=== PATIENT | female | born 1970 | race Caucasian/White ===

== ENCOUNTER 2018-11-13 10:45 | Observation (INO) | payer OTHER, SELFPAY ==
[2018-11-13] VITALS (17 sets, daily range): BP systolic 93–125; BP diastolic 40–68; PULSE 71–92; RESP 15–26; TEMP 36.9–39; O2SAT 21–97; BMI 17.7
--- NOTE | 2018-11-13 10:57 | DI.RAD.S_ITS ---
PROCEDURE: XR CHEST 1V INDICATIONS: suspected sepsis TECHNIQUE: One view of the chest was acquired. COMPARISON: None. FINDINGS: Surgical changes and devices: Cervical spine fixation hardware. Lungs and pleura: Lungs are clear. No pleural effusions or pneumothorax. Mediastinum: Mediastinal contours appear normal. Heart size is normal. Bones and chest wall: No suspicious bony lesions. Overlying soft tissues appear unremarkable. IMPRESSION: No acute cardiopulmonary disease process. Dictated by: Leidy Conti MD, PhD on 11/13/2018 at 11:43 Approved by: Leidy Conti MD, PhD on 11/13/2018 at 11:44
[2018-11-13] MEDS: SODIUM CHLORIDE 0.9% 1,000 ML 1000 ML IV (11:20)
[2018-11-13] MEDS: KETOROLAC 60 MG/2 ML VIAL 30 MG IV (11:30)
[2018-11-13] MEDS: ONDANSETRON 4 MG/2 ML INJ IV (11:30)
[2018-11-13 11:52] LABS: INR 1.1 (0.9-1.3); Prothrombin Time 12.4 SECONDS (10.1-12.7)
[2018-11-13 11:55] LABS: Mean Corpuscular HGB Conc 27.6 % (30-36); Mean Corpuscular Hemoglobin 15.3 PG (26-34); Mean Corpuscular Volume 55.3 fL (80-100); PTT Partial Thromboplastin Tim 35 SECONDS (26.4-36.2); Platelet Count 314 X10^3/uL (150-400); Red Blood Cell Count 2.79 X10^6/uL (4.0-5.2); Red Cell Distribution Width 23.7 % (11.6-14.8); White Blood Cell Count 11.6 X10^3/uL (4.5-11.0)
[2018-11-13 11:58] LABS: Hemoglobin 4.3 g/dL (12.0-16.0)
[2018-11-13 11:59] LABS: Add Manual Diff / Slide Review YES; Hematocrit 15.5 % (36-46)
[2018-11-13 12:04] LABS: Lactate (Lactic Acid) 0.9 mmol/L (0.7-2.1)
[2018-11-13 12:05] LABS: Alanine Aminotransferase 32 IU/L (9-52); Albumin 4.2 g/dL (3.5-5.0); Albumin Globulin Ratio 1.4 (1.0-2.8); Alkaline Phosphatase 57 U/L (38-126); Aspartate Aminotransferase 38 IU/L (14-36); BUN Creatinine Ratio 18.3 (6-22); Bilirubin Total 0.4 mg/dL (0.2-1.3); Blood Urea Nitrogen 11 mg/dL (7-17); Calcium 8.4 mg/dL (8.4-10.2); Carbon Dioxide 27 mmol/L (22-32); Chloride 94 mmol/L (98-107); Estimated Glomerular Filt Rate > 60.0 mL/min (>60); Globulin 2.9 g/dL (1.7-4.1); Glucose 112 mg/dL (70-100); HEMOLYSIS < 15 (0-50); Lipase 129 U/L (23-300); Potassium 3.6 mmol/L (3.4-5.1); Sodium 132 mmol/L (137-145); Total Protein 7.1 g/dL (6.3-8.2)
[2018-11-13 12:09] LABS: RBC Urine None Seen (0-5/HPF)
--- NOTE | 2018-11-13 12:27 | ED.FEVER ---
HPI - Fever <KJ Guerrero - Last Filed: 11/13/18 22:07> General Chief Complaint: Fever Stated Complaint: flu like symptoms,chest pressure Time Seen by Provider: 11/13/18 12:12 Source: patient Mode of arrival: ambulatory Limitations: no limitations History of Present Illness HPI Narrative: 48-year-old female with history of iron deficiency anemia is everyday smoker here for complaint of having fever malaise nasal congestion and cough for the past 4-5 days. She is tolerating p.o. fluids. She has had some nausea. Positive fever. No shortness of breath. She is able speak full sentences. She is ambulatory into the emergency room. She denies being around other people that have been sick. No other concerns or complaints at this timeframe. Related Data Home Medications Medication Instructions Recorded Confirmed Vicks Vaporub 1 applic TOPICAL PRN PRN 11/13/18 11/13/18 Previous Rx's Medication Instructions Recorded acetaminophen 650 mg PO Q6HR PRN #30 tab 11/16/18 benzonatate 100 mg PO TID PRN #30 cap 11/16/18 cyclobenzaprine 5 mg PO BEDTIME PRN #10 tab 11/16/18 ferrous sulfate 325 mg PO DAILY #30 tab 11/16/18 guaifenesin [Mucinex] 1,200 mg PO Q12H #30 tab 11/16/18 omeprazole 20 mg PO DAILY #30 cap 11/16/18 oseltamivir [Tamiflu] 75 mg PO BID #6 cap 11/16/18 pseudoephedrine HCl 30 mg PO Q6HR PRN #30 tab 11/16/18 Allergies Allergy/AdvReac Type Severity Reaction Status Date / Time sumatriptan Allergy Severe Anaphylaxis Verified 11/13/18 10:50 codeine Allergy Intermediate Hives Verified 11/13/18 10:50 dihydroergotamine Allergy Unknown Verified 11/13/18 10:50 Review of Systems <KJ Guerrero - Last Filed: 11/13/18 22:07> Constitutional Reports chills, Reports fever(s), Denies lethargy, Reports malaise and Denies weakness Eyes Denies change in vision, Denies eye discharge, Denies irritation and Denies loss of vision ENT Ears, Nose, Mouth, and Throat: Denies change in voice, Reports nasal congestion, Denies neck pain and Denies sore throat Cardiovascular Denies chest pain, Denies irregular heart rhythm, Denies lightheadedness, Denies palpitations, Denies dyspnea, Denies dyspnea on exertion and Denies orthopnea Respiratory Reports cough, Denies dyspnea, Denies dyspnea on exertion and Denies wheezing Gastrointestinal Gastrointestinal: Denies abdominal pain, Denies change in bowel habits, Denies diarrhea, Denies nausea and Denies vomiting Genitourinary Denies hematuria, Denies flank pain, Denies urinary incontinence and Denies urinary urgency Musculoskeletal Denies neck pain Neurologic Denies confusion, Denies loss of vision and Denies weakness Psychiatric Denies anxiety, Denies confusion, Denies depression, Denies homicidal ideation and Denies suicidal ideation Endocrine Denies palpitations Hematologic/Lymphatic Denies easy bruising Allergic/Immunologic Denies wheezing PFSH <KJ Guerrero - Last Filed: 11/13/18 22:07> Medical History Smoker (Acute) Surgical History H/O cervical spine surgery (Acute) Hx of adenoidectomy (Acute) Social History household members: spouse Smoking Status: Current every day smoker alcohol intake: current Social History household members: spouse Smoking Status: Current every day smoker alcohol intake: current Exam <KJ Guerrero - Last Filed: 11/13/18 22:07> Initial Vital Signs Initial Vital Signs: Vital Signs Temperature 102.2 F H 11/13/18 10:46 Pulse Rate 92 H 11/13/18 10:46 Respiratory Rate 24 11/13/18 10:46 Blood Pressure 93/54 L 11/13/18 10:46 Pulse Oximetry 93 11/13/18 10:46 Const General: cooperative and well developed Nutritional Appearance: well nourished Orientation: alert, awake, oriented x3 and not confused HENMT Mouth: oral mucosae normal and mucous membranes abnormal Throat: posterior oropharynx normal Eyes Conjunctivae: conjunctivae normal Sclera: sclerae normal Pupils: PERRL EOM: EOM intact bilaterally Cardio Rate: regular rate Rhythm: regular rhythm Heart Sounds: no click, no gallops, no murmurs and no rubs Pulses: normal peripheral pulses GI Inspection: non-distended Palpation: soft, no hepatosplenomegaly, No guarding, No pulsatile mass and No tender Auscultation: normal bowel sounds Rectal Exam: visual inspection normal, normal sphincter tone, heme negative stool, No laceration and No lesions Skin General: no rashes or lesions noted, No jaundice and No petechiae Neuro General: alert, oriented x3, gait normal and no focal motor deficits Speech: speech normal <Elba Levi DO - Last Filed: 11/17/18 02:44> Initial Vital Signs Initial Vital Signs: Vital Signs Temperature 102.2 F H 11/13/18 10:46 Pulse Rate 92 H 11/13/18 10:46 Respiratory Rate 24 11/13/18 10:46 Blood Pressure 93/54 L 11/13/18 10:46 Pulse Oximetry 93 11/13/18 10:46 Course <KJ Guerrero - Last Filed: 11/13/18 22:07> Orders Ordered: Discontinued Medications Acetaminophen (Tylenol) 650 mg PO Q6HR PRN PRN Reason: As Needed for Fever/Mild Pain Last Admin: 11/15/18 15:58 Dose: 650 mg Admin: 11/15/18 01:22 Dose: 650 mg Albuterol (Ventolin) 2.5 mg INH [id number] PRN PRN Reason: Shortness Of Breath Last Admin: 11/15/18 05:40 Dose: 2.5 mg Admin: 11/15/18 01:27 Dose: 2.5 mg Albuterol/Ipratropium (Duoneb) 3 ml INH [id number] Last Admin: 11/16/18 07:26 Dose: 3 ml Admin: 11/15/18 19:10 Dose: 3 ml Admin: 11/15/18 14:42 Dose: 3 ml Benzocaine (Cepacol Lozenge) 1 each PO Q4HR PRN PRN Reason: Cough Benzonatate (Tessalon Perles) 100 mg PO TID PRN PRN Reason: Cough Stop: 11/16/18 23:39 Last Admin: 11/16/18 14:51 Dose: 100 mg Admin: 11/16/18 08:19 Dose: 100 mg Admin: 11/15/18 20:56 Dose: 100 mg Admin: 11/15/18 16:00 Dose: 100 mg Admin: 11/15/18 01:01 Dose: 100 mg Admin: 11/14/18 10:56 Dose: 100 mg Cyclobenzaprine HCl (Flexeril) 5 mg PO NOW ONE Stop: 11/14/18 00:46 Last Admin: 11/14/18 01:22 Dose: 5 mg Cyclobenzaprine HCl (Flexeril) 5 mg PO TID PRN PRN Reason: Muscle Spasm Last Admin: 11/16/18 14:51 Dose: 5 mg Admin: 11/16/18 08:19 Dose: 5 mg Admin: 11/15/18 16:00 Dose: 5 mg Admin: 11/15/18 09:31 Dose: 5 mg Admin: 11/15/18 01:19 Dose: 5 mg Diclofenac Sodium (Voltaren 1% Gel) 1 applic TOP QID PRN PRN Reason: Pain, Moderate (4-6) Last Admin: 11/16/18 08:20 Dose: 1 applic Admin: 11/15/18 20:56 Dose: 1 applic Admin: 11/15/18 15:58 Dose: 1 applic Admin: 11/15/18 09:31 Dose: 1 applic Ferrous Sulfate (Ferrous Sulfate) 325 mg PO DAILY [facility] Last Admin: 11/16/18 08:15 Dose: 325 mg Guaifenesin (Robitussin Liquid) 100 mg PO Q4H PRN PRN Reason: Cough Last Admin: 11/14/18 13:26 Dose: 100 mg Guaifenesin (Mucinex) 600 mg PO Q12H [facility] Last Admin: 11/14/18 13:35 Dose: Not Given Admin: 11/14/18 00:35 Dose: 600 mg Guaifenesin (Mucinex) 1,200 mg PO Q12H [facility] Last Admin: 11/16/18 06:38 Dose: 1,200 mg Admin: 11/15/18 20:58 Dose: 1,200 mg Admin: 11/15/18 09:29 Dose: 1,200 mg Admin: 11/14/18 21:35 Dose: 1,200 mg Sodium Chloride (Normal Saline 0.9%) 1,000 mls @ 1,000 mls/hr IV BOLUS ONE Stop: 11/13/18 11:56 Last Infusion: 11/13/18 13:02 Dose: 0 mls/hr Admin: 11/13/18 11:20 Dose: 1,000 mls/hr Sodium Chloride (Normal Saline 0.9%) 1,000 mls @ 100 mls/hr IV CONT ORTIZ Last Admin: 11/15/18 21:51 Dose: 75 mls/hr Infusion: 11/15/18 17:43 Dose: 75 mls/hr Admin: 11/15/18 04:23 Dose: 75 mls/hr Infusion: 11/15/18 04:23 Dose: 75 mls/hr Admin: 11/14/18 16:12 Dose: 75 mls/hr Infusion: 11/14/18 15:15 Dose: 75 mls/hr Admin: 11/14/18 01:55 Dose: 75 mls/hr Potassium Chloride 40 meq/ (Sodium Chloride) 520 mls @ 130 mls/hr IV NOW ONE Stop: 11/15/18 12:47 Last Admin: 11/15/18 10:48 Dose: 130 mls/hr Influenza Virus Vaccine (Flu Vaccine) 0.5 ml IM .ONCE ONE Stop: 11/14/18 09:01 Last Admin: 11/14/18 13:27 Dose: 0.5 ml Ketorolac Tromethamine (Toradol) 30 mg IV NOW ONE Stop: 11/13/18 11:02 Last Admin: 11/13/18 11:30 Dose: 30 mg Lidocaine (Lidoderm) 1 each TOP DAILY ORTIZ Last Admin: 11/16/18 08:17 Dose: Not Given Admin: 11/15/18 09:22 Dose: Not Given Admin: 11/14/18 10:57 Dose: Not Given Admin: 11/14/18 10:56 Dose: 1 each Lidocaine (Lidoderm (Remove Patch)) 1 each TOP BEDTIME ORTIZ Last Admin: 11/15/18 21:02 Dose: Not Given Admin: 11/14/18 22:23 Dose: 1 each Morphine Sulfate (Morphine Sulfate) 2 mg IV NOW ONE Stop: 11/14/18 01:56 Last Admin: 11/14/18 01:55 Dose: 2 mg Morphine Sulfate (Morphine Sulfate) 2 mg IV NOW ONE Stop: 11/15/18 04:20 Last Admin: 11/15/18 07:37 Dose: Not Given Morphine Sulfate (Morphine) 2 mg IV NOW ONE Stop: 11/15/18 04:31 Last Admin: 11/15/18 04:33 Dose: 2 mg Ondansetron HCl (Zofran) 4 mg IV NOW ONE Stop: 11/13/18 11:02 Last Admin: 11/13/18 11:30 Dose: 4 mg Oseltamivir Phosphate (Tamiflu) 75 mg PO BID [facility] Last Admin: 11/16/18 08:17 Dose: 75 mg Admin: 11/15/18 22:01 Dose: 75 mg Admin: 11/15/18 10:44 Dose: 75 mg Admin: 11/14/18 21:30 Dose: 75 mg Admin: 11/14/18 10:56 Dose: 75 mg Admin: 11/14/18 01:22 Dose: 75 mg Pantoprazole Sodium (Protonix) 20 mg PO DAILY [facility] Last Admin: 11/16/18 08:16 Dose: 20 mg Admin: 11/15/18 09:30 Dose: 20 mg Pseudoephedrine HCl (Pseudoephedrine Hcl) 30 mg PO Q6HR PRN PRN Reason: Congestion Last Admin: 11/15/18 09:30 Dose: 30 mg Vital Signs - 8 hr 11/13/18 14:45 11/13/18 15:00 11/13/18 15:23 Temperature 99.0 F Pulse Rate 81 84 83 Respiratory Rate 23 22 25 H Blood Pressure 103/58 L Blood Pressure [Left Arm] 103/50 L 109/40 L Pulse Oximetry 91 92 11/13/18 15:24 11/13/18 15:44 11/13/18 16:26 Temperature 99.6 F 98.8 F Pulse Rate 83 74 Respiratory Rate 26 H 18 Blood Pressure 96/46 L 105/57 L Blood Pressure [Left Arm] Pulse Oximetry 95 93 11/13/18 18:15 11/13/18 18:59 11/13/18 19:15 Temperature 99.5 F 98.5 F 98.8 F Pulse Rate 78 73 71 Respiratory Rate 18 18 16 Blood Pressure 95/50 L 114/50 L 114/47 L Blood Pressure [Left Arm] Pulse Oximetry 11/13/18 21:19 Temperature 99.4 F Pulse Rate 71 Respiratory Rate 15 Blood Pressure 125/62 Blood Pressure [Left Arm] Pulse Oximetry 93 <Elba C Mank, DO - Last Filed: 11/17/18 02:44> Orders Ordered: Discontinued Medications Acetaminophen (Tylenol) 650 mg PO Q6HR PRN PRN Reason: As Needed for Fever/Mild Pain Last Admin: 11/15/18 15:58 Dose: 650 mg Admin: 11/15/18 01:22 Dose: 650 mg Albuterol (Ventolin) 2.5 mg INH [id number] PRN PRN Reason: Shortness Of Breath Last Admin: 11/15/18 05:40 Dose: 2.5 mg Admin: 11/15/18 01:27 Dose: 2.5 mg Albuterol/Ipratropium (Duoneb) 3 ml INH [id number] ORTIZ Last Admin: 11/16/18 07:26 Dose: 3 ml Admin: 11/15/18 19:10 Dose: 3 ml Admin: 11/15/18 14:42 Dose: 3 ml Benzocaine (Cepacol Lozenge) 1 each PO Q4HR PRN PRN Reason: Cough Benzonatate (Tessalon Perles) 100 mg PO TID PRN PRN Reason: Cough Stop: 11/16/18 23:39 Last Admin: 11/16/18 14:51 Dose: 100 mg Admin: 11/16/18 08:19 Dose: 100 mg Admin: 11/15/18 20:56 Dose: 100 mg Admin: 11/15/18 16:00 Dose: 100 mg Admin: 11/15/18 01:01 Dose: 100 mg Admin: 11/14/18 10:56 Dose: 100 mg Cyclobenzaprine HCl (Flexeril) 5 mg PO NOW ONE Stop: 11/14/18 00:46 Last Admin: 11/14/18 01:22 Dose: 5 mg Cyclobenzaprine HCl (Flexeril) 5 mg PO TID PRN PRN Reason: Muscle Spasm Last Admin: 11/16/18 14:51 Dose: 5 mg Admin: 11/16/18 08:19 Dose: 5 mg Admin: 11/15/18 16:00 Dose: 5 mg Admin: 11/15/18 09:31 Dose: 5 mg Admin: 11/15/18 01:19 Dose: 5 mg Diclofenac Sodium (Voltaren 1% Gel) 1 applic TOP QID PRN PRN Reason: Pain, Moderate (4-6) Last Admin: 11/16/18 08:20 Dose: 1 applic Admin: 11/15/18 20:56 Dose: 1 applic Admin: 11/15/18 15:58 Dose: 1 applic Admin: 11/15/18 09:31 Dose: 1 applic Ferrous Sulfate (Ferrous Sulfate) 325 mg PO DAILY [facility] Last Admin: 11/16/18 08:15 Dose: 325 mg Guaifenesin (Robitussin Liquid) 100 mg PO Q4H PRN PRN Reason: Cough Last Admin: 11/14/18 13:26 Dose: 100 mg Guaifenesin (Mucinex) 600 mg PO Q12H [facility] Last Admin: 11/14/18 13:35 Dose: Not Given Admin: 11/14/18 00:35 Dose: 600 mg Guaifenesin (Mucinex) 1,200 mg PO Q12H [facility] Last Admin: 11/16/18 06:38 Dose: 1,200 mg Admin: 11/15/18 20:58 Dose: 1,200 mg Admin: 11/15/18 09:29 Dose: 1,200 mg Admin: 11/14/18 21:35 Dose: 1,200 mg Sodium Chloride (Normal Saline 0.9%) 1,000 mls @ 1,000 mls/hr IV BOLUS ONE Stop: 11/13/18 11:56 Last Infusion: 11/13/18 13:02 Dose: 0 mls/hr Admin: 11/13/18 11:20 Dose: 1,000 mls/hr Sodium Chloride (Normal Saline 0.9%) 1,000 mls @ 100 mls/hr IV CONT [facility] Last Admin: 11/15/18 21:51 Dose: 75 mls/hr Infusion: 11/15/18 17:43 Dose: 75 mls/hr Admin: 11/15/18 04:23 Dose: 75 mls/hr Infusion: 11/15/18 04:23 Dose: 75 mls/hr Admin: 11/14/18 16:12 Dose: 75 mls/hr Infusion: 11/14/18 15:15 Dose: 75 mls/hr Admin: 11/14/18 01:55 Dose: 75 mls/hr Potassium Chloride 40 meq/ (Sodium Chloride) 520 mls @ 130 mls/hr IV NOW ONE Stop: 11/15/18 12:47 Last Admin: 11/15/18 10:48 Dose: 130 mls/hr Influenza Virus Vaccine (Flu Vaccine) 0.5 ml IM .ONCE ONE Stop: 11/14/18 09:01 Last Admin: 11/14/18 13:27 Dose: 0.5 ml Ketorolac Tromethamine (Toradol) 30 mg IV NOW ONE Stop: 11/13/18 11:02 Last Admin: 11/13/18 11:30 Dose: 30 mg Lidocaine (Lidoderm) 1 each TOP DAILY [facility] Last Admin: 11/16/18 08:17 Dose: Not Given Admin: 11/15/18 09:22 Dose: Not Given Admin: 11/14/18 10:57 Dose: Not Given Admin: 11/14/18 10:56 Dose: 1 each Lidocaine (Lidoderm (Remove Patch)) 1 each TOP BEDTIME [facility] Last Admin: 11/15/18 21:02 Dose: Not Given Admin: 11/14/18 22:23 Dose: 1 each Morphine Sulfate (Morphine Sulfate) 2 mg IV NOW ONE Stop: 11/14/18 01:56 Last Admin: 11/14/18 01:55 Dose: 2 mg Morphine Sulfate (Morphine Sulfate) 2 mg IV NOW ONE Stop: 11/15/18 04:20 Last Admin: 11/15/18 07:37 Dose: Not Given Morphine Sulfate (Morphine) 2 mg IV NOW ONE Stop: 11/15/18 04:31 Last Admin: 11/15/18 04:33 Dose: 2 mg Ondansetron HCl (Zofran) 4 mg IV NOW ONE Stop: 11/13/18 11:02 Last Admin: 11/13/18 11:30 Dose: 4 mg Oseltamivir Phosphate (Tamiflu) 75 mg PO BID [facility] Last Admin: 11/16/18 08:17 Dose: 75 mg Admin: 11/15/18 22:01 Dose: 75 mg Admin: 11/15/18 10:44 Dose: 75 mg Admin: 11/14/18 21:30 Dose: 75 mg Admin: 11/14/18 10:56 Dose: 75 mg Admin: 11/14/18 01:22 Dose: 75 mg Pantoprazole Sodium (Protonix) 20 mg PO DAILY [facility] Last Admin: 11/16/18 08:16 Dose: 20 mg Admin: 11/15/18 09:30 Dose: 20 mg Pseudoephedrine HCl (Pseudoephedrine Hcl) 30 mg PO Q6HR PRN PRN Reason: Congestion Last Admin: 11/15/18 09:30 Dose: 30 mg Vital Signs - 8 hr 11/13/18 14:45 11/13/18 15:00 11/13/18 15:23 Temperature 99.0 F Pulse Rate 81 84 83 Respiratory Rate 23 22 25 H Blood Pressure 103/58 L Blood Pressure [Left Arm] 103/50 L 109/40 L Pulse Oximetry 91 92 11/13/18 15:24 11/13/18 15:44 11/13/18 16:26 Temperature 99.6 F 98.8 F Pulse Rate 83 74 Respiratory Rate 26 H 18 Blood Pressure 96/46 L 105/57 L Blood Pressure [Left Arm] Pulse Oximetry 95 93 11/13/18 18:15 11/13/18 18:59 11/13/18 19:15 Temperature 99.5 F 98.5 F 98.8 F Pulse Rate 78 73 71 Respiratory Rate 18 18 16 Blood Pressure 95/50 L 114/50 L 114/47 L Blood Pressure [Left Arm] Pulse Oximetry 11/13/18 21:19 Temperature 99.4 F Pulse Rate 71 Respiratory Rate 15 Blood Pressure 125/62 Blood Pressure [Left Arm] Pulse Oximetry 93 MDM - Fever <KJ Guerrero - Last Filed: 11/13/18 22:07> Lab Data Result diagrams: 11/16/18 05:35 11/16/18 05:35 Lab Results 11/13/18 11/13/18 11/13/18 Range/Units 11:15 11:15 11:15 WBC 11.6 H (4.5-11.0) X10^3/uL RBC 2.79 L (4.0-5.2) X10^6/uL Hgb 4.3 L* (12.0-16.0) g/dL Hct 15.5 L* (36-46) % MCV 55.3 L (80-100) fL MCH 15.3 L (26-34) PG MCHC 27.6 L (30-36) % RDW 23.7 H (11.6-14.8) % Plt Count 314 (150-400) X10^3/uL Neut % (Auto) Not Reportable Lymph % (Auto) Not Reportable Gonzales % (Auto) Not Reportable Eos % (Auto) Not Reportable Baso % (Auto) Not Reportable Neut # (Auto) (8924-9631) /uL Lymph # (Auto) Not Reportable Gonzales # (Auto) Not Reportable Eos # (Auto) (0-450) /uL Baso # (Auto) Not Reportable Total Counted 100 Seg Neutrophils % 80.0 H (38-70) % Band Neutrophils % 6.0 (3-7) % Lymphocytes % (Manual) 4.0 L (25-45) % Monocytes % (Manual) 9.0 (2-11) % Eosinophils % (Manual) (2-4) % Basophils % (Manual) 1.0 (0-1) % Neutrophils # (Manual) 9976 H (9656-2377) /uL Nucleated RBCs ( - 0) #/Diff Plt Morphology Comment RBC Morphology See below Polychromasia 1+ H Hypochromasia 3+ H Poikilocytosis Anisocytosis 3+ H Microcytosis 3+ H Tear Drop Cells 1+ H Ovalocytes 2+ H Smear Path Review Percent Retic (1.06-2.63) % Haptoglobin (43-212) mg/dL PT 12.4 (10.1-12.7) SECONDS INR 1.1 (0.9-1.3) APTT 35 (26.4-36.2) SECONDS Sodium (137-145) mmol/L Potassium (3.4-5.1) mmol/L Chloride (98-107) mmol/L Carbon Dioxide (22-32) mmol/L BUN (7-17) mg/dL Creatinine (0.52-1.04) mg/dL Estimated GFR (>60) mL/min BUN/Creatinine Ratio (6-22) Glucose (70-100) mg/dL Lactate (0.7-2.1) mmol/L Calcium (8.4-10.2) mg/dL Magnesium (1.6-2.3) mg/dL Iron (37-170) ug/dL TIBC (265-497) ug/dL % Saturation (15-50) % Transferrin (206-381) mg/dL Ferritin (11.1-264) ng/mL Total Bilirubin (0.2-1.3) mg/dL Conjugated Bilirubin (0.0-0.3) md/dL Unconjugated Bilirubin (0.0-1.1) mg/dL AST (14-36) IU/L ALT (9-52) IU/L Alkaline Phosphatase (38-126) U/L Lactate Dehydrogenase (313-618) U/L Total Creatine Kinase (30-135) U/L CK-MB (CK-2) (<2.37) ng/mL CK-MB (CK-2) Rel Index (1.5-5.0) % Troponin I (0.01-0.034) ng/mL Total Protein (6.3-8.2) g/dL Albumin (3.5-5.0) g/dL Globulin (1.7-4.1) g/dL Albumin/Globulin Ratio (1.0-2.8) Lipase (23-300) U/L Vitamin B12 (239-931) pg/mL Folate (2.76-20.0) ng/mL Procalcitonin 2.49 H (<0.5) ng/mL Urine Color Urine Appearance Urine pH (4.5-8.0) Ur Specific [place] (1.000-1.035) Urine Protein (Negative) Urine Glucose (UA) (Negative) g/dL Urine Ketones (NEGATIVE) Urine Occult Blood (Negative) Urine Nitrate (Negative) Urine Bilirubin (NEGATIVE) Urine Urobilinogen (0.2) E.U./dL Ur Leukocyte Esterase (NEGATIVE) Urine RBC (0-5/HPF) Urine WBC (0-5/HPF) Ur Squamous Epith Cells Urine Bacteria (None) Hyaline Casts (None) Urine Mucus (Negative) Ur Culture Indicated? Influenza A & B (PCR) (Negative) Blood Type Antibody Screen Crossmatch 11/13/18 11/13/18 11/13/18 Range/Units 11:15 11:15 11:15 WBC (4.5-11.0) X10^3/uL RBC (4.0-5.2) X10^6/uL Hgb (12.0-16.0) g/dL Hct (36-46) % MCV (80-100) fL MCH (26-34) PG MCHC (30-36) % RDW (11.6-14.8) % Plt Count (150-400) X10^3/uL Neut % (Auto) Lymph % (Auto) Gonzales % (Auto) Eos % (Auto) Baso % (Auto) Neut # (Auto) (4865-8391) /uL Lymph # (Auto) Gonzales # (Auto) Eos # (Auto) (0-450) /uL Baso # (Auto) Total Counted Seg Neutrophils % (38-70) % Band Neutrophils % (3-7) % Lymphocytes % (Manual) (25-45) % Monocytes % (Manual) (2-11) % Eosinophils % (Manual) (2-4) % Basophils % (Manual) (0-1) % Neutrophils # (Manual) (5692-0209) /uL Nucleated RBCs ( - 0) #/Diff Plt Morphology Comment RBC Morphology Polychromasia Hypochromasia Poikilocytosis Anisocytosis Microcytosis Tear Drop Cells Ovalocytes Smear Path Review Percent Retic (1.06-2.63) % Haptoglobin (43-212) mg/dL PT (10.1-12.7) SECONDS INR (0.9-1.3) APTT (26.4-36.2) SECONDS Sodium 132 L (137-145) mmol/L Potassium 3.6 (3.4-5.1) mmol/L Chloride 94 L (98-107) mmol/L Carbon Dioxide 27 (22-32) mmol/L BUN 11 (7-17) mg/dL Creatinine 0.60 (0.52-1.04) mg/dL Estimated GFR > 60.0 (>60) mL/min BUN/Creatinine Ratio 18.3 (6-22) Glucose 112 H (70-100) mg/dL Lactate 0.9 (0.7-2.1) mmol/L Calcium 8.4 (8.4-10.2) mg/dL Magnesium (1.6-2.3) mg/dL Iron (37-170) ug/dL TIBC (265-497) ug/dL % Saturation (15-50) % Transferrin (206-381) mg/dL Ferritin (11.1-264) ng/mL Total Bilirubin 0.4 (0.2-1.3) mg/dL Conjugated Bilirubin (0.0-0.3) md/dL Unconjugated Bilirubin (0.0-1.1) mg/dL AST 38 H (14-36) IU/L ALT 32 (9-52) IU/L Alkaline Phosphatase 57 (38-126) U/L Lactate Dehydrogenase (313-618) U/L Total Creatine Kinase (30-135) U/L CK-MB (CK-2) (<2.37) ng/mL CK-MB (CK-2) Rel Index (1.5-5.0) % Troponin I (0.01-0.034) ng/mL Total Protein 7.1 (6.3-8.2) g/dL Albumin 4.2 (3.5-5.0) g/dL Globulin 2.9 (1.7-4.1) g/dL Albumin/Globulin Ratio 1.4 (1.0-2.8) Lipase 129 (23-300) U/L Vitamin B12 (239-931) pg/mL Folate (2.76-20.0) ng/mL Procalcitonin (<0.5) ng/mL Urine Color Urine Appearance Urine pH (4.5-8.0) Ur Specific [place] (1.000-1.035) Urine Protein (Negative) Urine Glucose (UA) (Negative) g/dL Urine Ketones (NEGATIVE) Urine Occult Blood (Negative) Urine Nitrate (Negative) Urine Bilirubin (NEGATIVE) Urine Urobilinogen (0.2) E.U./dL Ur Leukocyte Esterase (NEGATIVE) Urine RBC (0-5/HPF) Urine WBC (0-5/HPF) Ur Squamous Epith Cells Urine Bacteria (None) Hyaline Casts (None) Urine Mucus (Negative) Ur Culture Indicated? Influenza A & B (PCR) Positive, type a A (Negative) Blood Type Antibody Screen Crossmatch 11/13/18 11/13/18 11/13/18 Range/Units 11:15 12:08 12:30 WBC (4.5-11.0) X10^3/uL RBC (4.0-5.2) X10^6/uL Hgb (12.0-16.0) g/dL Hct (36-46) % MCV (80-100) fL MCH (26-34) PG MCHC (30-36) % RDW (11.6-14.8) % Plt Count (150-400) X10^3/uL Neut % (Auto) Lymph % (Auto) Gonzales % (Auto) Eos % (Auto) Baso % (Auto) Neut # (Auto) (9277-3354) /uL Lymph # (Auto) Gonzales # (Auto) Eos # (Auto) (0-450) /uL Baso # (Auto) Total Counted Seg Neutrophils % (38-70) % Band Neutrophils % (3-7) % Lymphocytes % (Manual) (25-45) % Monocytes % (Manual) (2-11) % Eosinophils % (Manual) (2-4) % Basophils % (Manual) (0-1) % Neutrophils # (Manual) (5774-1356) /uL Nucleated RBCs ( - 0) #/Diff Plt Morphology Comment RBC Morphology Polychromasia Hypochromasia Poikilocytosis Anisocytosis Microcytosis Tear Drop Cells Ovalocytes Smear Path Review Percent Retic (1.06-2.63) % Haptoglobin (43-212) mg/dL PT (10.1-12.7) SECONDS INR (0.9-1.3) APTT (26.4-36.2) SECONDS Sodium (137-145) mmol/L Potassium (3.4-5.1) mmol/L Chloride (98-107) mmol/L Carbon Dioxide (22-32) mmol/L BUN (7-17) mg/dL Creatinine (0.52-1.04) mg/dL Estimated GFR (>60) mL/min BUN/Creatinine Ratio (6-22) Glucose (70-100) mg/dL Lactate (0.7-2.1) mmol/L Calcium (8.4-10.2) mg/dL Magnesium (1.6-2.3) mg/dL Iron (37-170) ug/dL TIBC (265-497) ug/dL % Saturation (15-50) % Transferrin (206-381) mg/dL Ferritin (11.1-264) ng/mL Total Bilirubin (0.2-1.3) mg/dL Conjugated Bilirubin (0.0-0.3) md/dL Unconjugated Bilirubin (0.0-1.1) mg/dL AST (14-36) IU/L ALT (9-52) IU/L Alkaline Phosphatase (38-126) U/L Lactate Dehydrogenase (313-618) U/L Total Creatine Kinase 153 H (30-135) U/L CK-MB (CK-2) < 0.22 (<2.37) ng/mL CK-MB (CK-2) Rel Index 0.1 L (1.5-5.0) % Troponin I < 0.012 (0.01-0.034) ng/mL Total Protein (6.3-8.2) g/dL Albumin (3.5-5.0) g/dL Globulin (1.7-4.1) g/dL Albumin/Globulin Ratio (1.0-2.8) Lipase (23-300) U/L Vitamin B12 (239-931) pg/mL Folate (2.76-20.0) ng/mL Procalcitonin (<0.5) ng/mL Urine Color Urine Appearance Urine pH (4.5-8.0) Ur Specific [place] (1.000-1.035) Urine Protein (Negative) Urine Glucose (UA) (Negative) g/dL Urine Ketones (NEGATIVE) Urine Occult Blood (Negative) Urine Nitrate (Negative) Urine Bilirubin (NEGATIVE) Urine Urobilinogen (0.2) E.U./dL Ur Leukocyte Esterase (NEGATIVE) Urine RBC None seen (0-5/HPF) Urine WBC 1-5/hpf (0-5/HPF) Ur Squamous Epith Cells 0-1 /hpf Urine Bacteria Few (2-10) H (None) Hyaline Casts 1-5/lpf (None) Urine Mucus 1+ H (Negative) Ur Culture Indicated? Cult not indicated Influenza A & B (PCR) (Negative) Blood Type A Positive Antibody Screen Negative Crossmatch See Detail 11/13/18 11/13/18 11/13/18 Range/Units 20:30 20:30 20:30 WBC (4.5-11.0) X10^3/uL RBC (4.0-5.2) X10^6/uL Hgb (12.0-16.0) g/dL Hct (36-46) % MCV (80-100) fL MCH (26-34) PG MCHC (30-36) % RDW (11.6-14.8) % Plt Count (150-400) X10^3/uL Neut % (Auto) Lymph % (Auto) [place] % (Auto) Eos % (Auto) Baso % (Auto) Neut # (Auto) (5143-5303) /uL Lymph # (Auto) [place] # (Auto) Eos # (Auto) (0-450) /uL Baso # (Auto) Total Counted Seg Neutrophils % (38-70) % Band Neutrophils % (3-7) % Lymphocytes % (Manual) (25-45) % Monocytes % (Manual) (2-11) % Eosinophils % (Manual) (2-4) % Basophils % (Manual) (0-1) % Neutrophils # (Manual) (4673-8870) /uL Nucleated RBCs ( - 0) #/Diff Plt Morphology Comment RBC Morphology Polychromasia Hypochromasia Poikilocytosis Anisocytosis Microcytosis Tear Drop Cells Ovalocytes Smear Path Review Percent Retic (1.06-2.63) % Haptoglobin (43-212) mg/dL PT (10.1-12.7) SECONDS INR (0.9-1.3) APTT (26.4-36.2) SECONDS Sodium (137-145) mmol/L Potassium (3.4-5.1) mmol/L Chloride (98-107) mmol/L Carbon Dioxide (22-32) mmol/L BUN (7-17) mg/dL Creatinine (0.52-1.04) mg/dL Estimated GFR (>60) mL/min BUN/Creatinine Ratio (6-22) Glucose (70-100) mg/dL Lactate (0.7-2.1) mmol/L Calcium (8.4-10.2) mg/dL Magnesium (1.6-2.3) mg/dL Iron (37-170) ug/dL TIBC (265-497) ug/dL % Saturation (15-50) % Transferrin (206-381) mg/dL Ferritin 9.3 L (11.1-264) ng/mL Total Bilirubin 1.2 (0.2-1.3) mg/dL Conjugated Bilirubin 0.0 (0.0-0.3) md/dL Unconjugated Bilirubin 1.0 (0.0-1.1) mg/dL AST 50 H (14-36) IU/L ALT 33 (9-52) IU/L Alkaline Phosphatase 52 (38-126) U/L Lactate Dehydrogenase 737 H (313-618) U/L Total Creatine Kinase (30-135) U/L CK-MB (CK-2) (<2.37) ng/mL CK-MB (CK-2) Rel Index (1.5-5.0) % Troponin I (0.01-0.034) ng/mL Total Protein 6.7 (6.3-8.2) g/dL Albumin 3.9 (3.5-5.0) g/dL Globulin 2.8 (1.7-4.1) g/dL Albumin/Globulin Ratio 1.4 (1.0-2.8) Lipase (23-300) U/L Vitamin B12 (239-931) pg/mL Folate (2.76-20.0) ng/mL Procalcitonin (<0.5) ng/mL Urine Color Urine Appearance Urine pH (4.5-8.0) Ur Specific [place] (1.000-1.035) Urine Protein (Negative) Urine Glucose (UA) (Negative) g/dL Urine Ketones (NEGATIVE) Urine Occult Blood (Negative) Urine Nitrate (Negative) Urine Bilirubin (NEGATIVE) Urine Urobilinogen (0.2) E.U./dL Ur Leukocyte Esterase (NEGATIVE) Urine RBC (0-5/HPF) Urine WBC (0-5/HPF) Ur Squamous Epith Cells Urine Bacteria (None) Hyaline Casts (None) Urine Mucus (Negative) Ur Culture Indicated? Influenza A & B (PCR) (Negative) Blood Type Antibody Screen Crossmatch 11/13/18 11/13/18 11/13/18 Range/Units 20:30 20:38 20:38 WBC 10.8 (4.5-11.0) X10^3/uL RBC 3.48 L (4.0-5.2) X10^6/uL Hgb 7.0 L (12.0-16.0) g/dL Hct 22.8 L (36-46) % MCV 65.4 L D (80-100) fL MCH 20.2 L (26-34) PG MCHC 30.9 D (30-36) % RDW 33.8 H (11.6-14.8) % Plt Count 344 (150-400) X10^3/uL Neut % (Auto) Lymph % (Auto) Gonzales % (Auto) Eos % (Auto) Baso % (Auto) Neut # (Auto) (0955-9096) /uL Lymph # (Auto) Gonzales # (Auto) Eos # (Auto) (0-450) /uL Baso # (Auto) Total Counted 100 Seg Neutrophils % 65.0 (38-70) % Band Neutrophils % 2.0 L (3-7) % Lymphocytes % (Manual) 10.0 L (25-45) % Monocytes % (Manual) 18.0 H (2-11) % Eosinophils % (Manual) 5.0 H (2-4) % Basophils % (Manual) 0.0 (0-1) % Neutrophils # (Manual) 7236 H (7303-7784) /uL Nucleated RBCs ( - 0) #/Diff Plt Morphology Comment RBC Morphology Not Reportable Polychromasia Hypochromasia Poikilocytosis 3+ H Anisocytosis 3+ H Microcytosis 3+ H Tear Drop Cells Ovalocytes Smear Path Review Percent Retic 2.2 (1.06-2.63) % Haptoglobin 185 (43-212) mg/dL PT (10.1-12.7) SECONDS INR (0.9-1.3) APTT (26.4-36.2) SECONDS Sodium (137-145) mmol/L Potassium (3.4-5.1) mmol/L Chloride (98-107) mmol/L Carbon Dioxide (22-32) mmol/L BUN (7-17) mg/dL Creatinine (0.52-1.04) mg/dL Estimated GFR (>60) mL/min BUN/Creatinine Ratio (6-22) Glucose (70-100) mg/dL Lactate (0.7-2.1) mmol/L Calcium (8.4-10.2) mg/dL Magnesium (1.6-2.3) mg/dL Iron (37-170) ug/dL TIBC (265-497) ug/dL % Saturation (15-50) % Transferrin (206-381) mg/dL Ferritin (11.1-264) ng/mL Total Bilirubin (0.2-1.3) mg/dL Conjugated Bilirubin (0.0-0.3) md/dL Unconjugated Bilirubin (0.0-1.1) mg/dL AST (14-36) IU/L ALT (9-52) IU/L Alkaline Phosphatase (38-126) U/L Lactate Dehydrogenase (313-618) U/L Total Creatine Kinase (30-135) U/L CK-MB (CK-2) (<2.37) ng/mL CK-MB (CK-2) Rel Index (1.5-5.0) % Troponin I (0.01-0.034) ng/mL Total Protein (6.3-8.2) g/dL Albumin (3.5-5.0) g/dL Globulin (1.7-4.1) g/dL Albumin/Globulin Ratio (1.0-2.8) Lipase (23-300) U/L Vitamin B12 (239-931) pg/mL Folate (2.76-20.0) ng/mL Procalcitonin (<0.5) ng/mL Urine Color Urine Appearance Urine pH (4.5-8.0) Ur Specific [place] (1.000-1.035) Urine Protein (Negative) Urine Glucose (UA) (Negative) g/dL Urine Ketones (NEGATIVE) Urine Occult Blood (Negative) Urine Nitrate (Negative) Urine Bilirubin (NEGATIVE) Urine Urobilinogen (0.2) E.U./dL Ur Leukocyte Esterase (NEGATIVE) Urine RBC (0-5/HPF) Urine WBC (0-5/HPF) Ur Squamous Epith Cells Urine Bacteria (None) Hyaline Casts (None) Urine Mucus (Negative) Ur Culture Indicated? Influenza A & B (PCR) (Negative) Blood Type Antibody Screen Crossmatch 11/13/18 11/13/18 11/14/18 Range/Units 20:38 20:38 00:27 WBC (4.5-11.0) X10^3/uL RBC (4.0-5.2) X10^6/uL Hgb (12.0-16.0) g/dL Hct (36-46) % MCV (80-100) fL MCH (26-34) PG MCHC (30-36) % RDW (11.6-14.8) % Plt Count (150-400) X10^3/uL Neut % (Auto) Lymph % (Auto) Gonzales % (Auto) Eos % (Auto) Baso % (Auto) Neut # (Auto) (6789-5140) /uL Lymph # (Auto) Gonzales # (Auto) Eos # (Auto) (0-450) /uL Baso # (Auto) Total Counted Seg Neutrophils % (38-70) % Band Neutrophils % (3-7) % Lymphocytes % (Manual) (25-45) % Monocytes % (Manual) (2-11) % Eosinophils % (Manual) (2-4) % Basophils % (Manual) (0-1) % Neutrophils # (Manual) (6596-6914) /uL Nucleated RBCs ( - 0) #/Diff Plt Morphology Comment RBC Morphology Polychromasia Hypochromasia Poikilocytosis Anisocytosis Microcytosis Tear Drop Cells Ovalocytes Smear Path Review Percent Retic (1.06-2.63) % Haptoglobin (43-212) mg/dL PT (10.1-12.7) SECONDS INR (0.9-1.3) APTT (26.4-36.2) SECONDS Sodium (137-145) mmol/L Potassium (3.4-5.1) mmol/L Chloride (98-107) mmol/L Carbon Dioxide (22-32) mmol/L BUN (7-17) mg/dL Creatinine (0.52-1.04) mg/dL Estimated GFR (>60) mL/min BUN/Creatinine Ratio (6-22) Glucose (70-100) mg/dL Lactate (0.7-2.1) mmol/L Calcium (8.4-10.2) mg/dL Magnesium (1.6-2.3) mg/dL Iron 70 (37-170) ug/dL TIBC 379 (265-497) ug/dL % Saturation 18 (15-50) % Transferrin 381 (206-381) mg/dL Ferritin (11.1-264) ng/mL Total Bilirubin (0.2-1.3) mg/dL Conjugated Bilirubin (0.0-0.3) md/dL Unconjugated Bilirubin (0.0-1.1) mg/dL AST (14-36) IU/L ALT (9-52) IU/L Alkaline Phosphatase (38-126) U/L Lactate Dehydrogenase (313-618) U/L Total Creatine Kinase 190 H (30-135) U/L CK-MB (CK-2) 0.60 D (<2.37) ng/mL CK-MB (CK-2) Rel Index 0.3 L (1.5-5.0) % Troponin I < 0.012 (0.01-0.034) ng/mL Total Protein (6.3-8.2) g/dL Albumin (3.5-5.0) g/dL Globulin (1.7-4.1) g/dL Albumin/Globulin Ratio (1.0-2.8) Lipase (23-300) U/L Vitamin B12 617 (239-931) pg/mL Folate 19.6 (2.76-20.0) ng/mL Procalcitonin (<0.5) ng/mL Urine Color Urine Appearance Urine pH (4.5-8.0) Ur Specific [place] (1.000-1.035) Urine Protein (Negative) Urine Glucose (UA) (Negative) g/dL Urine Ketones (NEGATIVE) Urine Occult Blood (Negative) Urine Nitrate (Negative) Urine Bilirubin (NEGATIVE) Urine Urobilinogen (0.2) E.U./dL Ur Leukocyte Esterase (NEGATIVE) Urine RBC (0-5/HPF) Urine WBC (0-5/HPF) Ur Squamous Epith Cells Urine Bacteria (None) Hyaline Casts (None) Urine Mucus (Negative) Ur Culture Indicated? Influenza A & B (PCR) (Negative) Blood Type Antibody Screen Crossmatch 11/14/18 11/14/18 11/14/18 Range/Units 00:40 06:20 06:20 WBC 10.5 (4.5-11.0) X10^3/uL RBC 3.66 L (4.0-5.2) X10^6/uL Hgb 7.4 L (12.0-16.0) g/dL Hct 24.0 L (36-46) % MCV 65.6 L (80-100) fL MCH 20.2 L (26-34) PG MCHC 30.9 (30-36) % RDW 32.7 H (11.6-14.8) % Plt Count 341 (150-400) X10^3/uL Neut % (Auto) 74.0 Lymph % (Auto) 11.8 L Gonzales % (Auto) 12.6 Eos % (Auto) 0.6 L Baso % (Auto) 1.0 Neut # (Auto) 7800 H (8698-7987) /uL Lymph # (Auto) 1200 Gonzales # (Auto) 1300 H Eos # (Auto) 100 (0-450) /uL Baso # (Auto) 100 Total Counted Seg Neutrophils % (38-70) % Band Neutrophils % (3-7) % Lymphocytes % (Manual) (25-45) % Monocytes % (Manual) (2-11) % Eosinophils % (Manual) (2-4) % Basophils % (Manual) (0-1) % Neutrophils # (Manual) (5757-0197) /uL Nucleated RBCs ( - 0) #/Diff Plt Morphology Comment RBC Morphology See below Polychromasia 1+ H Hypochromasia 3+ H Poikilocytosis 2+ H Anisocytosis 3+ H Microcytosis 3+ H Tear Drop Cells Ovalocytes Smear Path Review Percent Retic (1.06-2.63) % Haptoglobin (43-212) mg/dL PT (10.1-12.7) SECONDS INR (0.9-1.3) APTT (26.4-36.2) SECONDS Sodium 133 L (137-145) mmol/L Potassium 3.4 (3.4-5.1) mmol/L Chloride 97 L (98-107) mmol/L Carbon Dioxide 25 (22-32) mmol/L BUN 7 (7-17) mg/dL Creatinine 0.50 L (0.52-1.04) mg/dL Estimated GFR > 60.0 (>60) mL/min BUN/Creatinine Ratio 14.0 (6-22) Glucose 91 (70-100) mg/dL Lactate (0.7-2.1) mmol/L Calcium 8.1 L (8.4-10.2) mg/dL Magnesium 2.0 (1.6-2.3) mg/dL Iron (37-170) ug/dL TIBC (265-497) ug/dL % Saturation (15-50) % Transferrin (206-381) mg/dL Ferritin (11.1-264) ng/mL Total Bilirubin (0.2-1.3) mg/dL Conjugated Bilirubin (0.0-0.3) md/dL Unconjugated Bilirubin (0.0-1.1) mg/dL AST (14-36) IU/L ALT (9-52) IU/L Alkaline Phosphatase (38-126) U/L Lactate Dehydrogenase (313-618) U/L Total Creatine Kinase (30-135) U/L CK-MB (CK-2) (<2.37) ng/mL CK-MB (CK-2) Rel Index (1.5-5.0) % Troponin I (0.01-0.034) ng/mL Total Protein (6.3-8.2) g/dL Albumin (3.5-5.0) g/dL Globulin (1.7-4.1) g/dL Albumin/Globulin Ratio (1.0-2.8) Lipase (23-300) U/L Vitamin B12 (239-931) pg/mL Folate (2.76-20.0) ng/mL Procalcitonin (<0.5) ng/mL Urine Color Yellow Urine Appearance Clear Urine pH 6.0 (4.5-8.0) Ur Specific [place] <=1.005 (1.000-1.035) Urine Protein Negative (Negative) Urine Glucose (UA) Negative (Negative) g/dL Urine Ketones Negative (NEGATIVE) Urine Occult Blood Negative (Negative) Urine Nitrate Negative (Negative) Urine Bilirubin Negative (NEGATIVE) Urine Urobilinogen 1.0 (0.2) E.U./dL Ur Leukocyte Esterase Negative (NEGATIVE) Urine RBC None seen (0-5/HPF) Urine WBC None seen (0-5/HPF) Ur Squamous Epith Cells 0-1 /hpf Urine Bacteria Few (2-10) H (None) Hyaline Casts (None) Urine Mucus (Negative) Ur Culture Indicated? Cult not indicated Influenza A & B (PCR) (Negative) Blood Type Antibody Screen Crossmatch 11/15/18 11/15/18 11/15/18 Range/Units 05:45 05:45 05:45 WBC 9.5 (4.5-11.0) X10^3/uL RBC 3.60 L (4.0-5.2) X10^6/uL Hgb 7.2 L (12.0-16.0) g/dL Hct 24.2 L (36-46) % MCV 67.2 L (80-100) fL MCH 20.0 L (26-34) PG MCHC 29.8 L (30-36) % RDW 33.7 H (11.6-14.8) % Plt Count 313 (150-400) X10^3/uL Neut % (Auto) 66.2 Lymph % (Auto) 19.1 L Gonzales % (Auto) 13.0 Eos % (Auto) 0.7 L Baso % (Auto) 1.0 Neut # (Auto) 6300 (3624-0899) /uL Lymph # (Auto) 1800 Gonzales # (Auto) 1200 H Eos # (Auto) 100 (0-450) /uL Baso # (Auto) 100 Total Counted Seg Neutrophils % (38-70) % Band Neutrophils % (3-7) % Lymphocytes % (Manual) (25-45) % Monocytes % (Manual) (2-11) % Eosinophils % (Manual) (2-4) % Basophils % (Manual) (0-1) % Neutrophils # (Manual) (8667-3400) /uL Nucleated RBCs 1 H ( - 0) #/Diff Plt Morphology Comment RBC Morphology Not Reportable Polychromasia 2+ H Hypochromasia 2+ H Poikilocytosis Anisocytosis Microcytosis 3+ H Tear Drop Cells Ovalocytes Smear Path Review Percent Retic (1.06-2.63) % Haptoglobin (43-212) mg/dL PT (10.1-12.7) SECONDS INR (0.9-1.3) APTT (26.4-36.2) SECONDS Sodium 135 L (137-145) mmol/L Potassium 3.1 L (3.4-5.1) mmol/L Chloride 100 (98-107) mmol/L Carbon Dioxide 25 (22-32) mmol/L BUN 6 L (7-17) mg/dL Creatinine 0.50 L (0.52-1.04) mg/dL Estimated GFR > 60.0 (>60) mL/min BUN/Creatinine Ratio 12.0 (6-22) Glucose 100 (70-100) mg/dL Lactate (0.7-2.1) mmol/L Calcium 8.3 L (8.4-10.2) mg/dL Magnesium (1.6-2.3) mg/dL Iron (37-170) ug/dL TIBC (265-497) ug/dL % Saturation (15-50) % Transferrin (206-381) mg/dL Ferritin (11.1-264) ng/mL Total Bilirubin 0.6 (0.2-1.3) mg/dL Conjugated Bilirubin (0.0-0.3) md/dL Unconjugated Bilirubin (0.0-1.1) mg/dL AST 36 (14-36) IU/L ALT 35 (9-52) IU/L Alkaline Phosphatase 54 (38-126) U/L Lactate Dehydrogenase (313-618) U/L Total Creatine Kinase (30-135) U/L CK-MB (CK-2) (<2.37) ng/mL CK-MB (CK-2) Rel Index (1.5-5.0) % Troponin I (0.01-0.034) ng/mL Total Protein 6.5 (6.3-8.2) g/dL Albumin 3.8 (3.5-5.0) g/dL Globulin 2.7 (1.7-4.1) g/dL Albumin/Globulin Ratio 1.4 (1.0-2.8) Lipase (23-300) U/L Vitamin B12 (239-931) pg/mL Folate (2.76-20.0) ng/mL Procalcitonin 0.52 H (<0.5) ng/mL Urine Color Urine Appearance Urine pH (4.5-8.0) Ur Specific [place] (1.000-1.035) Urine Protein (Negative) Urine Glucose (UA) (Negative) g/dL Urine Ketones (NEGATIVE) Urine Occult Blood (Negative) Urine Nitrate (Negative) Urine Bilirubin (NEGATIVE) Urine Urobilinogen (0.2) E.U./dL Ur Leukocyte Esterase (NEGATIVE) Urine RBC (0-5/HPF) Urine WBC (0-5/HPF) Ur Squamous Epith Cells Urine Bacteria (None) Hyaline Casts (None) Urine Mucus (Negative) Ur Culture Indicated? Influenza A & B (PCR) (Negative) Blood Type Antibody Screen Crossmatch 11/15/18 11/16/18 11/16/18 Range/Units 05:45 05:35 05:35 WBC 9.7 (4.5-11.0) X10^3/uL RBC 3.68 L (4.0-5.2) X10^6/uL Hgb 7.5 L (12.0-16.0) g/dL Hct 24.6 L (36-46) % MCV 67.0 L (80-100) fL MCH 20.3 L (26-34) PG MCHC 30.3 (30-36) % RDW 34.7 H (11.6-14.8) % Plt Count 348 (150-400) X10^3/uL Neut % (Auto) 75.0 Lymph % (Auto) 13.0 L Gonzales % (Auto) 9.4 Eos % (Auto) 1.7 L Baso % (Auto) 0.9 Neut # (Auto) 7300 H (9434-6748) /uL Lymph # (Auto) 1300 Gonzales # (Auto) 900 Eos # (Auto) 200 (0-450) /uL Baso # (Auto) 100 Total Counted Seg Neutrophils % (38-70) % Band Neutrophils % (3-7) % Lymphocytes % (Manual) (25-45) % Monocytes % (Manual) (2-11) % Eosinophils % (Manual) (2-4) % Basophils % (Manual) (0-1) % Neutrophils # (Manual) (0677-2281) /uL Nucleated RBCs ( - 0) #/Diff Plt Morphology Comment RBC Morphology See below Polychromasia 2+ H Hypochromasia 2+ H Poikilocytosis 1+ H Anisocytosis 3+ H Microcytosis 3+ H Tear Drop Cells Ovalocytes Smear Path Review Percent Retic (1.06-2.63) % Haptoglobin (43-212) mg/dL PT (10.1-12.7) SECONDS INR (0.9-1.3) APTT (26.4-36.2) SECONDS Sodium (137-145) mmol/L Potassium (3.4-5.1) mmol/L Chloride (98-107) mmol/L Carbon Dioxide (22-32) mmol/L BUN (7-17) mg/dL Creatinine (0.52-1.04) mg/dL Estimated GFR (>60) mL/min BUN/Creatinine Ratio (6-22) Glucose (70-100) mg/dL Lactate (0.7-2.1) mmol/L Calcium (8.4-10.2) mg/dL Magnesium 2.1 (1.6-2.3) mg/dL Iron (37-170) ug/dL TIBC (265-497) ug/dL % Saturation (15-50) % Transferrin (206-381) mg/dL Ferritin (11.1-264) ng/mL Total Bilirubin (0.2-1.3) mg/dL Conjugated Bilirubin (0.0-0.3) md/dL Unconjugated Bilirubin (0.0-1.1) mg/dL AST (14-36) IU/L ALT (9-52) IU/L Alkaline Phosphatase (38-126) U/L Lactate Dehydrogenase (313-618) U/L Total Creatine Kinase (30-135) U/L CK-MB (CK-2) (<2.37) ng/mL CK-MB (CK-2) Rel Index (1.5-5.0) % Troponin I (0.01-0.034) ng/mL Total Protein (6.3-8.2) g/dL Albumin (3.5-5.0) g/dL Globulin (1.7-4.1) g/dL Albumin/Globulin Ratio (1.0-2.8) Lipase (23-300) U/L Vitamin B12 (239-931) pg/mL Folate (2.76-20.0) ng/mL Procalcitonin 0.19 (<0.5) ng/mL Urine Color Urine Appearance Urine pH (4.5-8.0) Ur Specific [place] (1.000-1.035) Urine Protein (Negative) Urine Glucose (UA) (Negative) g/dL Urine Ketones (NEGATIVE) Urine Occult Blood (Negative) Urine Nitrate (Negative) Urine Bilirubin (NEGATIVE) Urine Urobilinogen (0.2) E.U./dL Ur Leukocyte Esterase (NEGATIVE) Urine RBC (0-5/HPF) Urine WBC (0-5/HPF) Ur Squamous Epith Cells Urine Bacteria (None) Hyaline Casts (None) Urine Mucus (Negative) Ur Culture Indicated? Influenza A & B (PCR) (Negative) Blood Type Antibody Screen Crossmatch 11/16/18 Range/Units 05:35 WBC (4.5-11.0) X10^3/uL RBC (4.0-5.2) X10^6/uL Hgb (12.0-16.0) g/dL Hct (36-46) % MCV (80-100) fL MCH (26-34) PG MCHC (30-36) % RDW (11.6-14.8) % Plt Count (150-400) X10^3/uL Neut % (Auto) Lymph % (Auto) Gonzales % (Auto) Eos % (Auto) Baso % (Auto) Neut # (Auto) (5443-6277) /uL Lymph # (Auto) Gonzales # (Auto) Eos # (Auto) (0-450) /uL Baso # (Auto) Total Counted Seg Neutrophils % (38-70) % Band Neutrophils % (3-7) % Lymphocytes % (Manual) (25-45) % Monocytes % (Manual) (2-11) % Eosinophils % (Manual) (2-4) % Basophils % (Manual) (0-1) % Neutrophils # (Manual) (0904-7372) /uL Nucleated RBCs ( - 0) #/Diff Plt Morphology Comment RBC Morphology Polychromasia Hypochromasia Poikilocytosis Anisocytosis Microcytosis Tear Drop Cells Ovalocytes Smear Path Review Percent Retic (1.06-2.63) % Haptoglobin (43-212) mg/dL PT (10.1-12.7) SECONDS INR (0.9-1.3) APTT (26.4-36.2) SECONDS Sodium 137 (137-145) mmol/L Potassium 3.9 (3.4-5.1) mmol/L Chloride 105 (98-107) mmol/L Carbon Dioxide 24 (22-32) mmol/L BUN 4 L (7-17) mg/dL Creatinine 0.40 L (0.52-1.04) mg/dL Estimated GFR > 60.0 (>60) mL/min BUN/Creatinine Ratio 10.0 (6-22) Glucose 96 (70-100) mg/dL Lactate (0.7-2.1) mmol/L Calcium 8.3 L (8.4-10.2) mg/dL Magnesium 1.9 (1.6-2.3) mg/dL Iron (37-170) ug/dL TIBC (265-497) ug/dL % Saturation (15-50) % Transferrin (206-381) mg/dL Ferritin (11.1-264) ng/mL Total Bilirubin 0.4 (0.2-1.3) mg/dL Conjugated Bilirubin (0.0-0.3) md/dL Unconjugated Bilirubin (0.0-1.1) mg/dL AST 48 H (14-36) IU/L ALT 34 (9-52) IU/L Alkaline Phosphatase 50 (38-126) U/L Lactate Dehydrogenase (313-618) U/L Total Creatine Kinase (30-135) U/L CK-MB (CK-2) (<2.37) ng/mL CK-MB (CK-2) Rel Index (1.5-5.0) % Troponin I (0.01-0.034) ng/mL Total Protein 6.1 L (6.3-8.2) g/dL Albumin 3.4 L (3.5-5.0) g/dL Globulin 2.7 (1.7-4.1) g/dL Albumin/Globulin Ratio 1.3 (1.0-2.8) Lipase (23-300) U/L Vitamin B12 (239-931) pg/mL Folate (2.76-20.0) ng/mL Procalcitonin (<0.5) ng/mL Urine Color Urine Appearance Urine pH (4.5-8.0) Ur Specific [place] (1.000-1.035) Urine Protein (Negative) Urine Glucose (UA) (Negative) g/dL Urine Ketones (NEGATIVE) Urine Occult Blood (Negative) Urine Nitrate (Negative) Urine Bilirubin (NEGATIVE) Urine Urobilinogen (0.2) E.U./dL Ur Leukocyte Esterase (NEGATIVE) Urine RBC (0-5/HPF) Urine WBC (0-5/HPF) Ur Squamous Epith Cells Urine Bacteria (None) Hyaline Casts (None) Urine Mucus (Negative) Ur Culture Indicated? Influenza A & B (PCR) (Negative) Blood Type Antibody Screen Crossmatch Point of Care Testing Stool Occult Blood Negative Urine Dip Bedside Urine Glucose Negative Bedside Urine Bilirubin - Negative Bedside Urine Ketone +/- 5 Urine Specific [place] 1.025 Bedside Urine Occult Blood - Negative Bedside Urine pH 5.5 Bedside Urine Protein + 30 Bedside Urine Urobilinogen +/- 1mg Bedside Urine Nitrite - Negative Bedside Urine Leukocytes - Negative Esterase Imaging Data Chest x-ray: Radiologist's impression: [address] [address] XRay Report Signed Patient: Amor Crow MMR#: [id number] : 1970Acct:[id number] Age/Sex: 48 / FDate of Service: 11/13/18 Loc: ED Accession Number: [id number] Procedure: XR chest 1V Ordering Provider: Elba Levi D.O. PROCEDURE: XR CHEST 1V INDICATIONS: suspected sepsis TECHNIQUE: One view of the chest was acquired. COMPARISON: None. FINDINGS: Surgical changes and devices: Cervical spine fixation hardware. Lungs and pleura: Lungs are clear. No pleural effusions or pneumothorax. Mediastinum: Mediastinal contours appear normal. Heart size is normal. Bones and chest wall: No suspicious bony lesions. Overlying soft tissues appear unremarkable. IMPRESSION: No acute cardiopulmonary disease process. Dictated by: Leidy Conti MD, PhD on 11/13/2018 at 11:43 Approved by: Leidy Conti MD, PhD on 11/13/2018 at 11:44 ECG Data Interpretation: EKG shows normal sinus rhythm with no ST elevation or depression. No ectopy. Ventricular rate of 84. Pr interval of 132. QRS duration of 87. QTC of 404. MDM Narrative Medical decision making narrative: CBC resulted with critical value of her hemoglobin and hematocrit at 4.3 and 15.5 respectively. Patient denies having any dark stool or vomiting blood. She does have a history of iron deficiency anemia she does state she has not been taking her iron pills for the last couple of years. She does state that she has had received transfusions in the past but that was multiple years ago and was when she had a gastric ulcer. She denies having any stomach pain at this time other than some periodic abdominal wall pain is secondary to the cough that she has had. No apparent source of bleeding is appreciated. Influenza swab was obtained and was positive for flu A. Procalcitonin was elevated urinalysis was obtained was negative for urinary tract infection. Chest x-ray was obtained and was negative for any acute findings. Stool Guaiac was obtained and was negative. Type and screen was ordered and she was ordered 2 units packed red blood cells. Patient is admitted to inpatient services for monitoring. Hospitalist Dr. Almendarez accepted patient <Elba Levi DO - Last Filed: 11/17/18 02:44> Lab Data Lab Results 11/13/18 11/13/18 11/13/18 Range/Units 11:15 11:15 11:15 WBC 11.6 H (4.5-11.0) X10^3/uL RBC 2.79 L (4.0-5.2) X10^6/uL Hgb 4.3 L* (12.0-16.0) g/dL Hct 15.5 L* (36-46) % MCV 55.3 L (80-100) fL MCH 15.3 L (26-34) PG MCHC 27.6 L (30-36) % RDW 23.7 H (11.6-14.8) % Plt Count 314 (150-400) X10^3/uL Neut % (Auto) Not Reportable Lymph % (Auto) Not Reportable Gonzales % (Auto) Not Reportable Eos % (Auto) Not Reportable Baso % (Auto) Not Reportable Neut # (Auto) (9360-8517) /uL Lymph # (Auto) Not Reportable Gonzales # (Auto) Not Reportable Eos # (Auto) (0-450) /uL Baso # (Auto) Not Reportable Total Counted 100 Seg Neutrophils % 80.0 H (38-70) % Band Neutrophils % 6.0 (3-7) % Lymphocytes % (Manual) 4.0 L (25-45) % Monocytes % (Manual) 9.0 (2-11) % Eosinophils % (Manual) (2-4) % Basophils % (Manual) 1.0 (0-1) % Neutrophils # (Manual) 9976 H (0771-6887) /uL Nucleated RBCs ( - 0) #/Diff Plt Morphology Comment RBC Morphology See below Polychromasia 1+ H Hypochromasia 3+ H Poikilocytosis Anisocytosis 3+ H Microcytosis 3+ H Tear Drop Cells 1+ H Ovalocytes 2+ H Smear Path Review Percent Retic (1.06-2.63) % Haptoglobin (43-212) mg/dL PT 12.4 (10.1-12.7) SECONDS INR 1.1 (0.9-1.3) APTT 35 (26.4-36.2) SECONDS Sodium (137-145) mmol/L Potassium (3.4-5.1) mmol/L Chloride (98-107) mmol/L Carbon Dioxide (22-32) mmol/L BUN (7-17) mg/dL Creatinine (0.52-1.04) mg/dL Estimated GFR (>60) mL/min BUN/Creatinine Ratio (6-22) Glucose (70-100) mg/dL Lactate (0.7-2.1) mmol/L Calcium (8.4-10.2) mg/dL Magnesium (1.6-2.3) mg/dL Iron (37-170) ug/dL TIBC (265-497) ug/dL % Saturation (15-50) % Transferrin (206-381) mg/dL Ferritin (11.1-264) ng/mL Total Bilirubin (0.2-1.3) mg/dL Conjugated Bilirubin (0.0-0.3) md/dL Unconjugated Bilirubin (0.0-1.1) mg/dL AST (14-36) IU/L ALT (9-52) IU/L Alkaline Phosphatase (38-126) U/L Lactate Dehydrogenase (313-618) U/L Total Creatine Kinase (30-135) U/L CK-MB (CK-2) (<2.37) ng/mL CK-MB (CK-2) Rel Index (1.5-5.0) % Troponin I (0.01-0.034) ng/mL Total Protein (6.3-8.2) g/dL Albumin (3.5-5.0) g/dL Globulin (1.7-4.1) g/dL Albumin/Globulin Ratio (1.0-2.8) Lipase (23-300) U/L Vitamin B12 (239-931) pg/mL Folate (2.76-20.0) ng/mL Procalcitonin 2.49 H (<0.5) ng/mL Urine Color Urine Appearance Urine pH (4.5-8.0) Ur Specific [place] (1.000-1.035) Urine Protein (Negative) Urine Glucose (UA) (Negative) g/dL Urine Ketones (NEGATIVE) Urine Occult Blood (Negative) Urine Nitrate (Negative) Urine Bilirubin (NEGATIVE) Urine Urobilinogen (0.2) E.U./dL Ur Leukocyte Esterase (NEGATIVE) Urine RBC (0-5/HPF) Urine WBC (0-5/HPF) Ur Squamous Epith Cells Urine Bacteria (None) Hyaline Casts (None) Urine Mucus (Negative) Ur Culture Indicated? Influenza A & B (PCR) (Negative) Blood Type Antibody Screen Crossmatch 02/18/19 02/18/19 02/18/19 Range/Units 11:15 11:15 11:15 WBC (4.5-11.0) X10^3/uL RBC (4.0-5.2) X10^6/uL Hgb (12.0-16.0) g/dL Hct (36-46) % MCV (80-100) fL MCH (26-34) PG MCHC (30-36) % RDW (11.6-14.8) % Plt Count (150-400) X10^3/uL Neut % (Auto) Lymph % (Auto) Gonzales % (Auto) Eos % (Auto) Baso % (Auto) Neut # (Auto) (3749-0693) /uL Lymph # (Auto) Gonzales # (Auto) Eos # (Auto) (0-450) /uL Baso # (Auto) Total Counted Seg Neutrophils % (38-70) % Band Neutrophils % (3-7) % Lymphocytes % (Manual) (25-45) % Monocytes % (Manual) (2-11) % Eosinophils % (Manual) (2-4) % Basophils % (Manual) (0-1) % Neutrophils # (Manual) (5204-8481) /uL Nucleated RBCs ( - 0) #/Diff Plt Morphology Comment RBC Morphology Polychromasia Hypochromasia Poikilocytosis Anisocytosis Microcytosis Tear Drop Cells Ovalocytes Smear Path Review Percent Retic (1.06-2.63) % Haptoglobin (43-212) mg/dL PT (10.1-12.7) SECONDS INR (0.9-1.3) APTT (26.4-36.2) SECONDS Sodium 132 L (137-145) mmol/L Potassium 3.6 (3.4-5.1) mmol/L Chloride 94 L (98-107) mmol/L Carbon Dioxide 27 (22-32) mmol/L BUN 11 (7-17) mg/dL Creatinine 0.60 (0.52-1.04) mg/dL Estimated GFR > 60.0 (>60) mL/min BUN/Creatinine Ratio 18.3 (6-22) Glucose 112 H (70-100) mg/dL Lactate 0.9 (0.7-2.1) mmol/L Calcium 8.4 (8.4-10.2) mg/dL Magnesium (1.6-2.3) mg/dL Iron (37-170) ug/dL TIBC (265-497) ug/dL % Saturation (15-50) % Transferrin (206-381) mg/dL Ferritin (11.1-264) ng/mL Total Bilirubin 0.4 (0.2-1.3) mg/dL Conjugated Bilirubin (0.0-0.3) md/dL Unconjugated Bilirubin (0.0-1.1) mg/dL AST 38 H (14-36) IU/L ALT 32 (9-52) IU/L Alkaline Phosphatase 57 (38-126) U/L Lactate Dehydrogenase (313-618) U/L Total Creatine Kinase (30-135) U/L CK-MB (CK-2) (<2.37) ng/mL CK-MB (CK-2) Rel Index (1.5-5.0) % Troponin I (0.01-0.034) ng/mL Total Protein 7.1 (6.3-8.2) g/dL Albumin 4.2 (3.5-5.0) g/dL Globulin 2.9 (1.7-4.1) g/dL Albumin/Globulin Ratio 1.4 (1.0-2.8) Lipase 129 (23-300) U/L Vitamin B12 (239-931) pg/mL Folate (2.76-20.0) ng/mL Procalcitonin (<0.5) ng/mL Urine Color Urine Appearance Urine pH (4.5-8.0) Ur Specific [place] (1.000-1.035) Urine Protein (Negative) Urine Glucose (UA) (Negative) g/dL Urine Ketones (NEGATIVE) Urine Occult Blood (Negative) Urine Nitrate (Negative) Urine Bilirubin (NEGATIVE) Urine Urobilinogen (0.2) E.U./dL Ur Leukocyte Esterase (NEGATIVE) Urine RBC (0-5/HPF) Urine WBC (0-5/HPF) Ur Squamous Epith Cells Urine Bacteria (None) Hyaline Casts (None) Urine Mucus (Negative) Ur Culture Indicated? Influenza A & B (PCR) Positive, type a A (Negative) Blood Type Antibody Screen Crossmatch 11/13/18 11/13/18 11/13/18 Range/Units 11:15 12:08 12:30 WBC (4.5-11.0) X10^3/uL RBC (4.0-5.2) X10^6/uL Hgb (12.0-16.0) g/dL Hct (36-46) % MCV (80-100) fL MCH (26-34) PG MCHC (30-36) % RDW (11.6-14.8) % Plt Count (150-400) X10^3/uL Neut % (Auto) Lymph % (Auto) Gonzales % (Auto) Eos % (Auto) Baso % (Auto) Neut # (Auto) (8982-9691) /uL Lymph # (Auto) Gonzales # (Auto) Eos # (Auto) (0-450) /uL Baso # (Auto) Total Counted Seg Neutrophils % (38-70) % Band Neutrophils % (3-7) % Lymphocytes % (Manual) (25-45) % Monocytes % (Manual) (2-11) % Eosinophils % (Manual) (2-4) % Basophils % (Manual) (0-1) % Neutrophils # (Manual) (7336-8600) /uL Nucleated RBCs ( - 0) #/Diff Plt Morphology Comment RBC Morphology Polychromasia Hypochromasia Poikilocytosis Anisocytosis Microcytosis Tear Drop Cells Ovalocytes Smear Path Review Percent Retic (1.06-2.63) % Haptoglobin (43-212) mg/dL PT (10.1-12.7) SECONDS INR (0.9-1.3) APTT (26.4-36.2) SECONDS Sodium (137-145) mmol/L Potassium (3.4-5.1) mmol/L Chloride (98-107) mmol/L Carbon Dioxide (22-32) mmol/L BUN (7-17) mg/dL Creatinine (0.52-1.04) mg/dL Estimated GFR (>60) mL/min BUN/Creatinine Ratio (6-22) Glucose (70-100) mg/dL Lactate (0.7-2.1) mmol/L Calcium (8.4-10.2) mg/dL Magnesium (1.6-2.3) mg/dL Iron (37-170) ug/dL TIBC (265-497) ug/dL % Saturation (15-50) % Transferrin (206-381) mg/dL Ferritin (11.1-264) ng/mL Total Bilirubin (0.2-1.3) mg/dL Conjugated Bilirubin (0.0-0.3) md/dL Unconjugated Bilirubin (0.0-1.1) mg/dL AST (14-36) IU/L ALT (9-52) IU/L Alkaline Phosphatase (38-126) U/L Lactate Dehydrogenase (313-618) U/L Total Creatine Kinase 153 H (30-135) U/L CK-MB (CK-2) < 0.22 (<2.37) ng/mL CK-MB (CK-2) Rel Index 0.1 L (1.5-5.0) % Troponin I < 0.012 (0.01-0.034) ng/mL Total Protein (6.3-8.2) g/dL Albumin (3.5-5.0) g/dL Globulin (1.7-4.1) g/dL Albumin/Globulin Ratio (1.0-2.8) Lipase (23-300) U/L Vitamin B12 (239-931) pg/mL Folate (2.76-20.0) ng/mL Procalcitonin (<0.5) ng/mL Urine Color Urine Appearance Urine pH (4.5-8.0) Ur Specific [place] (1.000-1.035) Urine Protein (Negative) Urine Glucose (UA) (Negative) g/dL Urine Ketones (NEGATIVE) Urine Occult Blood (Negative) Urine Nitrate (Negative) Urine Bilirubin (NEGATIVE) Urine Urobilinogen (0.2) E.U./dL Ur Leukocyte Esterase (NEGATIVE) Urine RBC None seen (0-5/HPF) Urine WBC 1-5/hpf (0-5/HPF) Ur Squamous Epith Cells 0-1 /hpf Urine Bacteria Few (2-10) H (None) Hyaline Casts 1-5/lpf (None) Urine Mucus 1+ H (Negative) Ur Culture Indicated? Cult not indicated Influenza A & B (PCR) (Negative) Blood Type A Positive Antibody Screen Negative Crossmatch See Detail 11/13/18 11/13/18 11/13/18 Range/Units 20:30 20:30 20:30 WBC (4.5-11.0) X10^3/uL RBC (4.0-5.2) X10^6/uL Hgb (12.0-16.0) g/dL Hct (36-46) % MCV (80-100) fL MCH (26-34) PG MCHC (30-36) % RDW (11.6-14.8) % Plt Count (150-400) X10^3/uL Neut % (Auto) Lymph % (Auto) [place] % (Auto) Eos % (Auto) Baso % (Auto) Neut # (Auto) (3842-6033) /uL Lymph # (Auto) [place] # (Auto) Eos # (Auto) (0-450) /uL Baso # (Auto) Total Counted Seg Neutrophils % (38-70) % Band Neutrophils % (3-7) % Lymphocytes % (Manual) (25-45) % Monocytes % (Manual) (2-11) % Eosinophils % (Manual) (2-4) % Basophils % (Manual) (0-1) % Neutrophils # (Manual) (7158-1986) /uL Nucleated RBCs ( - 0) #/Diff Plt Morphology Comment RBC Morphology Polychromasia Hypochromasia Poikilocytosis Anisocytosis Microcytosis Tear Drop Cells Ovalocytes Smear Path Review Percent Retic (1.06-2.63) % Haptoglobin (43-212) mg/dL PT (10.1-12.7) SECONDS INR (0.9-1.3) APTT (26.4-36.2) SECONDS Sodium (137-145) mmol/L Potassium (3.4-5.1) mmol/L Chloride (98-107) mmol/L Carbon Dioxide (22-32) mmol/L BUN (7-17) mg/dL Creatinine (0.52-1.04) mg/dL Estimated GFR (>60) mL/min BUN/Creatinine Ratio (6-22) Glucose (70-100) mg/dL Lactate (0.7-2.1) mmol/L Calcium (8.4-10.2) mg/dL Magnesium (1.6-2.3) mg/dL Iron (37-170) ug/dL TIBC (265-497) ug/dL % Saturation (15-50) % Transferrin (206-381) mg/dL Ferritin 9.3 L (11.1-264) ng/mL Total Bilirubin 1.2 (0.2-1.3) mg/dL Conjugated Bilirubin 0.0 (0.0-0.3) md/dL Unconjugated Bilirubin 1.0 (0.0-1.1) mg/dL AST 50 H (14-36) IU/L ALT 33 (9-52) IU/L Alkaline Phosphatase 52 (38-126) U/L Lactate Dehydrogenase 737 H (313-618) U/L Total Creatine Kinase (30-135) U/L CK-MB (CK-2) (<2.37) ng/mL CK-MB (CK-2) Rel Index (1.5-5.0) % Troponin I (0.01-0.034) ng/mL Total Protein 6.7 (6.3-8.2) g/dL Albumin 3.9 (3.5-5.0) g/dL Globulin 2.8 (1.7-4.1) g/dL Albumin/Globulin Ratio 1.4 (1.0-2.8) Lipase (23-300) U/L Vitamin B12 (239-931) pg/mL Folate (2.76-20.0) ng/mL Procalcitonin (<0.5) ng/mL Urine Color Urine Appearance Urine pH (4.5-8.0) Ur Specific [place] (1.000-1.035) Urine Protein (Negative) Urine Glucose (UA) (Negative) g/dL Urine Ketones (NEGATIVE) Urine Occult Blood (Negative) Urine Nitrate (Negative) Urine Bilirubin (NEGATIVE) Urine Urobilinogen (0.2) E.U./dL Ur Leukocyte Esterase (NEGATIVE) Urine RBC (0-5/HPF) Urine WBC (0-5/HPF) Ur Squamous Epith Cells Urine Bacteria (None) Hyaline Casts (None) Urine Mucus (Negative) Ur Culture Indicated? Influenza A & B (PCR) (Negative) Blood Type Antibody Screen Crossmatch 11/13/18 11/13/18 11/13/18 Range/Units 20:30 20:38 20:38 WBC 10.8 (4.5-11.0) X10^3/uL RBC 3.48 L (4.0-5.2) X10^6/uL Hgb 7.0 L (12.0-16.0) g/dL Hct 22.8 L (36-46) % MCV 65.4 L D (80-100) fL MCH 20.2 L (26-34) PG MCHC 30.9 D (30-36) % RDW 33.8 H (11.6-14.8) % Plt Count 344 (150-400) X10^3/uL Neut % (Auto) Lymph % (Auto) [place] % (Auto) Eos % (Auto) Baso % (Auto) Neut # (Auto) (1690-6114) /uL Lymph # (Auto) [place] # (Auto) Eos # (Auto) (0-450) /uL Baso # (Auto) Total Counted 100 Seg Neutrophils % 65.0 (38-70) % Band Neutrophils % 2.0 L (3-7) % Lymphocytes % (Manual) 10.0 L (25-45) % Monocytes % (Manual) 18.0 H (2-11) % Eosinophils % (Manual) 5.0 H (2-4) % Basophils % (Manual) 0.0 (0-1) % Neutrophils # (Manual) 7236 H (5252-0628) /uL Nucleated RBCs ( - 0) #/Diff Plt Morphology Comment RBC Morphology Not Reportable Polychromasia Hypochromasia Poikilocytosis 3+ H Anisocytosis 3+ H Microcytosis 3+ H Tear Drop Cells Ovalocytes Smear Path Review Percent Retic 2.2 (1.06-2.63) % Haptoglobin 185 (43-212) mg/dL PT (10.1-12.7) SECONDS INR (0.9-1.3) APTT (26.4-36.2) SECONDS Sodium (137-145) mmol/L Potassium (3.4-5.1) mmol/L Chloride (98-107) mmol/L Carbon Dioxide (22-32) mmol/L BUN (7-17) mg/dL Creatinine (0.52-1.04) mg/dL Estimated GFR (>60) mL/min BUN/Creatinine Ratio (6-22) Glucose (70-100) mg/dL Lactate (0.7-2.1) mmol/L Calcium (8.4-10.2) mg/dL Magnesium (1.6-2.3) mg/dL Iron (37-170) ug/dL TIBC (265-497) ug/dL % Saturation (15-50) % Transferrin (206-381) mg/dL Ferritin (11.1-264) ng/mL Total Bilirubin (0.2-1.3) mg/dL Conjugated Bilirubin (0.0-0.3) md/dL Unconjugated Bilirubin (0.0-1.1) mg/dL AST (14-36) IU/L ALT (9-52) IU/L Alkaline Phosphatase (38-126) U/L Lactate Dehydrogenase (313-618) U/L Total Creatine Kinase (30-135) U/L CK-MB (CK-2) (<2.37) ng/mL CK-MB (CK-2) Rel Index (1.5-5.0) % Troponin I (0.01-0.034) ng/mL Total Protein (6.3-8.2) g/dL Albumin (3.5-5.0) g/dL Globulin (1.7-4.1) g/dL Albumin/Globulin Ratio (1.0-2.8) Lipase (23-300) U/L Vitamin B12 (239-931) pg/mL Folate (2.76-20.0) ng/mL Procalcitonin (<0.5) ng/mL Urine Color Urine Appearance Urine pH (4.5-8.0) Ur Specific [place] (1.000-1.035) Urine Protein (Negative) Urine Glucose (UA) (Negative) g/dL Urine Ketones (NEGATIVE) Urine Occult Blood (Negative) Urine Nitrate (Negative) Urine Bilirubin (NEGATIVE) Urine Urobilinogen (0.2) E.U./dL Ur Leukocyte Esterase (NEGATIVE) Urine RBC (0-5/HPF) Urine WBC (0-5/HPF) Ur Squamous Epith Cells Urine Bacteria (None) Hyaline Casts (None) Urine Mucus (Negative) Ur Culture Indicated? Influenza A & B (PCR) (Negative) Blood Type Antibody Screen Crossmatch 11/13/18 11/13/18 11/14/18 Range/Units 20:38 20:38 00:27 WBC (4.5-11.0) X10^3/uL RBC (4.0-5.2) X10^6/uL Hgb (12.0-16.0) g/dL Hct (36-46) % MCV (80-100) fL MCH (26-34) PG MCHC (30-36) % RDW (11.6-14.8) % Plt Count (150-400) X10^3/uL Neut % (Auto) Lymph % (Auto) [place] % (Auto) Eos % (Auto) Baso % (Auto) Neut # (Auto) (6634-7928) /uL Lymph # (Auto) [place] # (Auto) Eos # (Auto) (0-450) /uL Baso # (Auto) Total Counted Seg Neutrophils % (38-70) % Band Neutrophils % (3-7) % Lymphocytes % (Manual) (25-45) % Monocytes % (Manual) (2-11) % Eosinophils % (Manual) (2-4) % Basophils % (Manual) (0-1) % Neutrophils # (Manual) (6451-6691) /uL Nucleated RBCs ( - 0) #/Diff Plt Morphology Comment RBC Morphology Polychromasia Hypochromasia Poikilocytosis Anisocytosis Microcytosis Tear Drop Cells Ovalocytes Smear Path Review Percent Retic (1.06-2.63) % Haptoglobin (43-212) mg/dL PT (10.1-12.7) SECONDS INR (0.9-1.3) APTT (26.4-36.2) SECONDS Sodium (137-145) mmol/L Potassium (3.4-5.1) mmol/L Chloride (98-107) mmol/L Carbon Dioxide (22-32) mmol/L BUN (7-17) mg/dL Creatinine (0.52-1.04) mg/dL Estimated GFR (>60) mL/min BUN/Creatinine Ratio (6-22) Glucose (70-100) mg/dL Lactate (0.7-2.1) mmol/L Calcium (8.4-10.2) mg/dL Magnesium (1.6-2.3) mg/dL Iron 70 (37-170) ug/dL TIBC 379 (265-497) ug/dL % Saturation 18 (15-50) % Transferrin 381 (206-381) mg/dL Ferritin (11.1-264) ng/mL Total Bilirubin (0.2-1.3) mg/dL Conjugated Bilirubin (0.0-0.3) md/dL Unconjugated Bilirubin (0.0-1.1) mg/dL AST (14-36) IU/L ALT (9-52) IU/L Alkaline Phosphatase (38-126) U/L Lactate Dehydrogenase (313-618) U/L Total Creatine Kinase 190 H (30-135) U/L CK-MB (CK-2) 0.60 D (<2.37) ng/mL CK-MB (CK-2) Rel Index 0.3 L (1.5-5.0) % Troponin I < 0.012 (0.01-0.034) ng/mL Total Protein (6.3-8.2) g/dL Albumin (3.5-5.0) g/dL Globulin (1.7-4.1) g/dL Albumin/Globulin Ratio (1.0-2.8) Lipase (23-300) U/L Vitamin B12 617 (239-931) pg/mL Folate 19.6 (2.76-20.0) ng/mL Procalcitonin (<0.5) ng/mL Urine Color Urine Appearance Urine pH (4.5-8.0) Ur Specific [place] (1.000-1.035) Urine Protein (Negative) Urine Glucose (UA) (Negative) g/dL Urine Ketones (NEGATIVE) Urine Occult Blood (Negative) Urine Nitrate (Negative) Urine Bilirubin (NEGATIVE) Urine Urobilinogen (0.2) E.U./dL Ur Leukocyte Esterase (NEGATIVE) Urine RBC (0-5/HPF) Urine WBC (0-5/HPF) Ur Squamous Epith Cells Urine Bacteria (None) Hyaline Casts (None) Urine Mucus (Negative) Ur Culture Indicated? Influenza A & B (PCR) (Negative) Blood Type Antibody Screen Crossmatch 11/14/18 11/14/18 11/14/18 Range/Units 00:40 06:20 06:20 WBC 10.5 (4.5-11.0) X10^3/uL RBC 3.66 L (4.0-5.2) X10^6/uL Hgb 7.4 L (12.0-16.0) g/dL Hct 24.0 L (36-46) % MCV 65.6 L (80-100) fL MCH 20.2 L (26-34) PG MCHC 30.9 (30-36) % RDW 32.7 H (11.6-14.8) % Plt Count 341 (150-400) X10^3/uL Neut % (Auto) 74.0 Lymph % (Auto) 11.8 L [place] % (Auto) 12.6 Eos % (Auto) 0.6 L Baso % (Auto) 1.0 Neut # (Auto) 7800 H (9606-5974) /uL Lymph # (Auto) 1200 Gonzales # (Auto) 1300 H Eos # (Auto) 100 (0-450) /uL Baso # (Auto) 100 Total Counted Seg Neutrophils % (38-70) % Band Neutrophils % (3-7) % Lymphocytes % (Manual) (25-45) % Monocytes % (Manual) (2-11) % Eosinophils % (Manual) (2-4) % Basophils % (Manual) (0-1) % Neutrophils # (Manual) (2114-8859) /uL Nucleated RBCs ( - 0) #/Diff Plt Morphology Comment RBC Morphology See below Polychromasia 1+ H Hypochromasia 3+ H Poikilocytosis 2+ H Anisocytosis 3+ H Microcytosis 3+ H Tear Drop Cells Ovalocytes Smear Path Review Percent Retic (1.06-2.63) % Haptoglobin (43-212) mg/dL PT (10.1-12.7) SECONDS INR (0.9-1.3) APTT (26.4-36.2) SECONDS Sodium 133 L (137-145) mmol/L Potassium 3.4 (3.4-5.1) mmol/L Chloride 97 L (98-107) mmol/L Carbon Dioxide 25 (22-32) mmol/L BUN 7 (7-17) mg/dL Creatinine 0.50 L (0.52-1.04) mg/dL Estimated GFR > 60.0 (>60) mL/min BUN/Creatinine Ratio 14.0 (6-22) Glucose 91 (70-100) mg/dL Lactate (0.7-2.1) mmol/L Calcium 8.1 L (8.4-10.2) mg/dL Magnesium 2.0 (1.6-2.3) mg/dL Iron (37-170) ug/dL TIBC (265-497) ug/dL % Saturation (15-50) % Transferrin (206-381) mg/dL Ferritin (11.1-264) ng/mL Total Bilirubin (0.2-1.3) mg/dL Conjugated Bilirubin (0.0-0.3) md/dL Unconjugated Bilirubin (0.0-1.1) mg/dL AST (14-36) IU/L ALT (9-52) IU/L Alkaline Phosphatase (38-126) U/L Lactate Dehydrogenase (313-618) U/L Total Creatine Kinase (30-135) U/L CK-MB (CK-2) (<2.37) ng/mL CK-MB (CK-2) Rel Index (1.5-5.0) % Troponin I (0.01-0.034) ng/mL Total Protein (6.3-8.2) g/dL Albumin (3.5-5.0) g/dL Globulin (1.7-4.1) g/dL Albumin/Globulin Ratio (1.0-2.8) Lipase (23-300) U/L Vitamin B12 (239-931) pg/mL Folate (2.76-20.0) ng/mL Procalcitonin (<0.5) ng/mL Urine Color Yellow Urine Appearance Clear Urine pH 6.0 (4.5-8.0) Ur Specific [place] <=1.005 (1.000-1.035) Urine Protein Negative (Negative) Urine Glucose (UA) Negative (Negative) g/dL Urine Ketones Negative (NEGATIVE) Urine Occult Blood Negative (Negative) Urine Nitrate Negative (Negative) Urine Bilirubin Negative (NEGATIVE) Urine Urobilinogen 1.0 (0.2) E.U./dL Ur Leukocyte Esterase Negative (NEGATIVE) Urine RBC None seen (0-5/HPF) Urine WBC None seen (0-5/HPF) Ur Squamous Epith Cells 0-1 /hpf Urine Bacteria Few (2-10) H (None) Hyaline Casts (None) Urine Mucus (Negative) Ur Culture Indicated? Cult not indicated Influenza A & B (PCR) (Negative) Blood Type Antibody Screen Crossmatch 11/15/18 11/15/18 11/15/18 Range/Units 05:45 05:45 05:45 WBC 9.5 (4.5-11.0) X10^3/uL RBC 3.60 L (4.0-5.2) X10^6/uL Hgb 7.2 L (12.0-16.0) g/dL Hct 24.2 L (36-46) % MCV 67.2 L (80-100) fL MCH 20.0 L (26-34) PG MCHC 29.8 L (30-36) % RDW 33.7 H (11.6-14.8) % Plt Count 313 (150-400) X10^3/uL Neut % (Auto) 66.2 Lymph % (Auto) 19.1 L [place] % (Auto) 13.0 Eos % (Auto) 0.7 L Baso % (Auto) 1.0 Neut # (Auto) 6300 (5175-6264) /uL Lymph # (Auto) 1800 Gonzales # (Auto) 1200 H Eos # (Auto) 100 (0-450) /uL Baso # (Auto) 100 Total Counted Seg Neutrophils % (38-70) % Band Neutrophils % (3-7) % Lymphocytes % (Manual) (25-45) % Monocytes % (Manual) (2-11) % Eosinophils % (Manual) (2-4) % Basophils % (Manual) (0-1) % Neutrophils # (Manual) (1330-8200) /uL Nucleated RBCs 1 H ( - 0) #/Diff Plt Morphology Comment RBC Morphology Not Reportable Polychromasia 2+ H Hypochromasia 2+ H Poikilocytosis Anisocytosis Microcytosis 3+ H Tear Drop Cells Ovalocytes Smear Path Review Percent Retic (1.06-2.63) % Haptoglobin (43-212) mg/dL PT (10.1-12.7) SECONDS INR (0.9-1.3) APTT (26.4-36.2) SECONDS Sodium 135 L (137-145) mmol/L Potassium 3.1 L (3.4-5.1) mmol/L Chloride 100 (98-107) mmol/L Carbon Dioxide 25 (22-32) mmol/L BUN 6 L (7-17) mg/dL Creatinine 0.50 L (0.52-1.04) mg/dL Estimated GFR > 60.0 (>60) mL/min BUN/Creatinine Ratio 12.0 (6-22) Glucose 100 (70-100) mg/dL Lactate (0.7-2.1) mmol/L Calcium 8.3 L (8.4-10.2) mg/dL Magnesium (1.6-2.3) mg/dL Iron (37-170) ug/dL TIBC (265-497) ug/dL % Saturation (15-50) % Transferrin (206-381) mg/dL Ferritin (11.1-264) ng/mL Total Bilirubin 0.6 (0.2-1.3) mg/dL Conjugated Bilirubin (0.0-0.3) md/dL Unconjugated Bilirubin (0.0-1.1) mg/dL AST 36 (14-36) IU/L ALT 35 (9-52) IU/L Alkaline Phosphatase 54 (38-126) U/L Lactate Dehydrogenase (313-618) U/L Total Creatine Kinase (30-135) U/L CK-MB (CK-2) (<2.37) ng/mL CK-MB (CK-2) Rel Index (1.5-5.0) % Troponin I (0.01-0.034) ng/mL Total Protein 6.5 (6.3-8.2) g/dL Albumin 3.8 (3.5-5.0) g/dL Globulin 2.7 (1.7-4.1) g/dL Albumin/Globulin Ratio 1.4 (1.0-2.8) Lipase (23-300) U/L Vitamin B12 (239-931) pg/mL Folate (2.76-20.0) ng/mL Procalcitonin 0.52 H (<0.5) ng/mL Urine Color Urine Appearance Urine pH (4.5-8.0) Ur Specific [place] (1.000-1.035) Urine Protein (Negative) Urine Glucose (UA) (Negative) g/dL Urine Ketones (NEGATIVE) Urine Occult Blood (Negative) Urine Nitrate (Negative) Urine Bilirubin (NEGATIVE) Urine Urobilinogen (0.2) E.U./dL Ur Leukocyte Esterase (NEGATIVE) Urine RBC (0-5/HPF) Urine WBC (0-5/HPF) Ur Squamous Epith Cells Urine Bacteria (None) Hyaline Casts (None) Urine Mucus (Negative) Ur Culture Indicated? Influenza A & B (PCR) (Negative) Blood Type Antibody Screen Crossmatch 11/15/18 11/16/18 11/16/18 Range/Units 05:45 05:35 05:35 WBC 9.7 (4.5-11.0) X10^3/uL RBC 3.68 L (4.0-5.2) X10^6/uL Hgb 7.5 L (12.0-16.0) g/dL Hct 24.6 L (36-46) % MCV 67.0 L (80-100) fL MCH 20.3 L (26-34) PG MCHC 30.3 (30-36) % RDW 34.7 H (11.6-14.8) % Plt Count 348 (150-400) X10^3/uL Neut % (Auto) 75.0 Lymph % (Auto) 13.0 L [place] % (Auto) 9.4 Eos % (Auto) 1.7 L Baso % (Auto) 0.9 Neut # (Auto) 7300 H (1299-5766) /uL Lymph # (Auto) 1300 [place] # (Auto) 900 Eos # (Auto) 200 (0-450) /uL Baso # (Auto) 100 Total Counted Seg Neutrophils % (38-70) % Band Neutrophils % (3-7) % Lymphocytes % (Manual) (25-45) % Monocytes % (Manual) (2-11) % Eosinophils % (Manual) (2-4) % Basophils % (Manual) (0-1) % Neutrophils # (Manual) (7413-9693) /uL Nucleated RBCs ( - 0) #/Diff Plt Morphology Comment RBC Morphology See below Polychromasia 2+ H Hypochromasia 2+ H Poikilocytosis 1+ H Anisocytosis 3+ H Microcytosis 3+ H Tear Drop Cells Ovalocytes Smear Path Review Percent Retic (1.06-2.63) % Haptoglobin (43-212) mg/dL PT (10.1-12.7) SECONDS INR (0.9-1.3) APTT (26.4-36.2) SECONDS Sodium (137-145) mmol/L Potassium (3.4-5.1) mmol/L Chloride (98-107) mmol/L Carbon Dioxide (22-32) mmol/L BUN (7-17) mg/dL Creatinine (0.52-1.04) mg/dL Estimated GFR (>60) mL/min BUN/Creatinine Ratio (6-22) Glucose (70-100) mg/dL Lactate (0.7-2.1) mmol/L Calcium (8.4-10.2) mg/dL Magnesium 2.1 (1.6-2.3) mg/dL Iron (37-170) ug/dL TIBC (265-497) ug/dL % Saturation (15-50) % Transferrin (206-381) mg/dL Ferritin (11.1-264) ng/mL Total Bilirubin (0.2-1.3) mg/dL Conjugated Bilirubin (0.0-0.3) md/dL Unconjugated Bilirubin (0.0-1.1) mg/dL AST (14-36) IU/L ALT (9-52) IU/L Alkaline Phosphatase (38-126) U/L Lactate Dehydrogenase (313-618) U/L Total Creatine Kinase (30-135) U/L CK-MB (CK-2) (<2.37) ng/mL CK-MB (CK-2) Rel Index (1.5-5.0) % Troponin I (0.01-0.034) ng/mL Total Protein (6.3-8.2) g/dL Albumin (3.5-5.0) g/dL Globulin (1.7-4.1) g/dL Albumin/Globulin Ratio (1.0-2.8) Lipase (23-300) U/L Vitamin B12 (239-931) pg/mL Folate (2.76-20.0) ng/mL Procalcitonin 0.19 (<0.5) ng/mL Urine Color Urine Appearance Urine pH (4.5-8.0) Ur Specific [place] (1.000-1.035) Urine Protein (Negative) Urine Glucose (UA) (Negative) g/dL Urine Ketones (NEGATIVE) Urine Occult Blood (Negative) Urine Nitrate (Negative) Urine Bilirubin (NEGATIVE) Urine Urobilinogen (0.2) E.U./dL Ur Leukocyte Esterase (NEGATIVE) Urine RBC (0-5/HPF) Urine WBC (0-5/HPF) Ur Squamous Epith Cells Urine Bacteria (None) Hyaline Casts (None) Urine Mucus (Negative) Ur Culture Indicated? Influenza A & B (PCR) (Negative) Blood Type Antibody Screen Crossmatch 11/16/18 Range/Units 05:35 WBC (4.5-11.0) X10^3/uL RBC (4.0-5.2) X10^6/uL Hgb (12.0-16.0) g/dL Hct (36-46) % MCV (80-100) fL MCH (26-34) PG MCHC (30-36) % RDW (11.6-14.8) % Plt Count (150-400) X10^3/uL Neut % (Auto) Lymph % (Auto) Gonzales % (Auto) Eos % (Auto) Baso % (Auto) Neut # (Auto) (4509-3616) /uL Lymph # (Auto) Gonzales # (Auto) Eos # (Auto) (0-450) /uL Baso # (Auto) Total Counted Seg Neutrophils % (38-70) % Band Neutrophils % (3-7) % Lymphocytes % (Manual) (25-45) % Monocytes % (Manual) (2-11) % Eosinophils % (Manual) (2-4) % Basophils % (Manual) (0-1) % Neutrophils # (Manual) (8404-8932) /uL Nucleated RBCs ( - 0) #/Diff Plt Morphology Comment RBC Morphology Polychromasia Hypochromasia Poikilocytosis Anisocytosis Microcytosis Tear Drop Cells Ovalocytes Smear Path Review Percent Retic (1.06-2.63) % Haptoglobin (43-212) mg/dL PT (10.1-12.7) SECONDS INR (0.9-1.3) APTT (26.4-36.2) SECONDS Sodium 137 (137-145) mmol/L Potassium 3.9 (3.4-5.1) mmol/L Chloride 105 (98-107) mmol/L Carbon Dioxide 24 (22-32) mmol/L BUN 4 L (7-17) mg/dL Creatinine 0.40 L (0.52-1.04) mg/dL Estimated GFR > 60.0 (>60) mL/min BUN/Creatinine Ratio 10.0 (6-22) Glucose 96 (70-100) mg/dL Lactate (0.7-2.1) mmol/L Calcium 8.3 L (8.4-10.2) mg/dL Magnesium 1.9 (1.6-2.3) mg/dL Iron (37-170) ug/dL TIBC (265-497) ug/dL % Saturation (15-50) % Transferrin (206-381) mg/dL Ferritin (11.1-264) ng/mL Total Bilirubin 0.4 (0.2-1.3) mg/dL Conjugated Bilirubin (0.0-0.3) md/dL Unconjugated Bilirubin (0.0-1.1) mg/dL AST 48 H (14-36) IU/L ALT 34 (9-52) IU/L Alkaline Phosphatase 50 (38-126) U/L Lactate Dehydrogenase (313-618) U/L Total Creatine Kinase (30-135) U/L CK-MB (CK-2) (<2.37) ng/mL CK-MB (CK-2) Rel Index (1.5-5.0) % Troponin I (0.01-0.034) ng/mL Total Protein 6.1 L (6.3-8.2) g/dL Albumin 3.4 L (3.5-5.0) g/dL Globulin 2.7 (1.7-4.1) g/dL Albumin/Globulin Ratio 1.3 (1.0-2.8) Lipase (23-300) U/L Vitamin B12 (239-931) pg/mL Folate (2.76-20.0) ng/mL Procalcitonin (<0.5) ng/mL Urine Color Urine Appearance Urine pH (4.5-8.0) Ur Specific [place] (1.000-1.035) Urine Protein (Negative) Urine Glucose (UA) (Negative) g/dL Urine Ketones (NEGATIVE) Urine Occult Blood (Negative) Urine Nitrate (Negative) Urine Bilirubin (NEGATIVE) Urine Urobilinogen (0.2) E.U./dL Ur Leukocyte Esterase (NEGATIVE) Urine RBC (0-5/HPF) Urine WBC (0-5/HPF) Ur Squamous Epith Cells Urine Bacteria (None) Hyaline Casts (None) Urine Mucus (Negative) Ur Culture Indicated? Influenza A & B (PCR) (Negative) Blood Type Antibody Screen Crossmatch Point of Care Testing Stool Occult Blood Negative Urine Dip Bedside Urine Glucose Negative Bedside Urine Bilirubin - Negative Bedside Urine Ketone +/- 5 Urine Specific [place] 1.025 Bedside Urine Occult Blood - Negative Bedside Urine pH 5.5 Bedside Urine Protein + 30 Bedside Urine Urobilinogen +/- 1mg Bedside Urine Nitrite - Negative Bedside Urine Leukocytes - Negative Esterase Discharge Plan Departure Patient Disposition: Admitted As Inpatient Clinical Impression: Influenza Anemia Qualifiers: Anemia type: iron deficiency Iron deficiency anemia type: unspecified iron deficiency Qualified Code(s): D50.9 - Iron deficiency anemia, unspecified Discharge Date/Time: 11/13/18 15:50 Interventions: ED Discharge Assessment Last Done: 11/13/18 15:46 Admit Date/Time: 11/13/18 15:08 Admit Provider: Araceli Almendarez <Elba Levi DO - Last Filed: 11/17/18 02:44> Cosign ED Attending Cosignature Attestation: I was immediately available in the department for consultation, case was discussed. This documentation has been reviewed and I agree with assessment and plan. Supervised by Elba Levi DO
[2018-11-13 12:34] LABS: Procalcitonin 2.49 ng/mL (<0.5)
--- NOTE | 2018-11-13 12:47 | PC.NURSE ---
Patient states she has a long history of iron-deficiency anemia since childhood. Has had blood transfusions in past. Does not remember when she last took her prescribed iron pills, due to issues with filling at pharmacy. States has been several months at least. Conjunctiva are pale in color. Patient denies an increased fatigue over past few months. Has had GI bleed in past, but denies abdominal pain, black stool or emesis at this time.
[2018-11-13 12:53] LABS: Creatine Kinase 153 U/L (30-135)
[2018-11-13 12:55] LABS: Neutrophils Absolute Manual 9976 /uL (3000-5900); Total Cells Counted 100
[2018-11-13 12:57] LABS: Anisocytosis 3+
[2018-11-13 12:58] LABS: Hypochromasia 3+; Microcytosis 3+
[2018-11-13 13:00] LABS: Ovalocytes 2+
[2018-11-13 13:01] LABS: Polychromasia 1+; Tear Drop Cells 1+
[2018-11-13 13:05] LABS: Troponin I < 0.012 ng/mL (0.01-0.034)
[2018-11-13 13:30] LABS: Bacteria Urine Few (2-10); Culture Indicated Urine Cult Not Indicated; Hyaline Casts Urine 1-5/LPF; Mucus Urine 1+ (Negative); Squamous Epithelial Cell Urine 0-1 /HPF; WBC Urine 1-5/HPF (0-5/HPF)
[2018-11-13 13:46] LABS: CKMB % Relative Index 0.1 % (1.5-5.0); Creatine Kinase MB < 0.22 ng/mL (<2.37)
--- NOTE | 2018-11-13 14:46 | ED_ITS ---
HPI - Fever <KJ Guerrero - Last Filed: 11/13/18 22:07> General Chief Complaint: Fever Stated Complaint: flu like symptoms,chest pressure Time Seen by Provider: 11/13/18 12:12 Source: patient Mode of arrival: ambulatory Limitations: no limitations History of Present Illness HPI Narrative: 48-year-old female with history of iron deficiency anemia is everyday smoker here for complaint of having fever malaise nasal congestion and cough for the past 4-5 days. She is tolerating p.o. fluids. She has had some nausea. Positive fever. No shortness of breath. She is able speak full sen tences. She is ambulatory into the emergency room. She denies being around other people that have been sick. No other concerns or complaints at this timeframe. Related Data Home Medications Medication Instructions Recorded Confirmed Vicks Vaporub 1 applic TOPICAL PRN PRN 11/13/18 11/13/18 Previous Rx's Medication Instructions Recorded acetaminophen 650 mg PO Q6HR PRN #30 tab 11/16/18 benzonatate 100 mg PO TID PRN #30 cap 11/16/18 cyclobenzaprine 5 mg PO BEDTIME PRN #10 tab 11/16/18 ferrous sulfate 325 mg PO DAILY #30 tab 11/16/18 guaifenesin [Mucinex] 1,200 mg PO Q12H #30 tab 11/16/18 omeprazole 20 mg PO DAILY #30 cap 11/16/18 oseltamivir [Tamiflu] 75 mg PO BID #6 cap 11/16/18 pseudoephedrine HCl 30 mg PO Q6HR PRN #30 tab 11/16/18 Allergies Allergy/AdvReac Type Severity Reaction Status Date / Time sumatriptan Allergy Severe Anaphylaxis Verified 11/13/18 10:50 codeine Allergy Intermediate Hives Verified 11/13/18 10:50 dihydroergotamine Allergy Unknown Verified 11/13/18 10:50 Review of Systems <KJ Guerrero - Last Filed: 11/13/18 22:07> Constitutional Reports chills, Reports fever(s), Denies lethargy, Reports malaise and Denies weakness Eyes Denies change in vision, Denies eye discharge, Denies irritation and Denies loss of vision ENT Ears, Nose, Mouth, and Throat: Denies change in voice, Reports nasal congestion, Denies neck pain and Denies sore throat Cardiovascular Denies chest pain, Denies irregular heart rhythm, Denies lightheadedness, Denies palpitations, Denies dyspnea, Denies dyspnea on exertion and Denies orthopnea Respiratory Reports cough, Denies dyspnea, Denies dyspnea on exertion and Denies wheezing Gastrointestinal Gastrointestinal: Denies abdominal pain, Denies change in bowel habits, Denies diarrhea, Denies nausea and Denies vomiting Genitourinary Denies hematuria, Denies flank pain, Denies urinary incontinence and Denies urinary urgency Musculoskeletal Denies neck pain Neurologic Denies confusion, Denies loss of vision and Denies weakness Psychiatric Denies anxiety, Denies confusion, Denies depression, Denies homicidal ideation and Denies suicidal ideation Endocrine Denies palpitations Hematologic/Lymphatic Denies easy bruising Allergic/Immunologic Denies wheezing PFSH <KJ Guerrero - Last Filed: 11/13/18 22:07> Medical History Smoker (Acute) Surgical History H/O cervical spine surgery (Acute) Hx of adenoidectomy (Acute) Social History household members: spouse Smoking Status: Current every day smoker alcohol intake: current Social History household members: spouse Smoking Status: Current every day smoker alcohol intake: current Exam <KJ Guerrero - Last Filed: 11/13/18 22:07> Initial Vital Signs Initial Vital Signs: Vital Signs Temperature 102.2 F H 11/13/18 10:46 Pulse Rate 92 H 11/13/18 10:46 Respiratory Rate 24 11/13/18 10:46 Blood Pressure 93/54 L 11/13/18 10:46 Pulse Oximetry 93 11/13/18 10:46 Const General: cooperative and well developed Nutritional Appearance: well nourished Orientation: alert, awake, oriented x3 and not confused HENMT Mouth: oral mucosae normal and mucous membranes abnormal Throat: posterior oropharynx normal Eyes Conjunctivae: conjunctivae normal Sclera: sclerae normal Pupils: PERRL EOM: EOM intact bilaterally Cardio Rate: regular rate Rhythm: regular rhythm Heart Sounds: no click, no gallops, no murmurs and no rubs Pulses: normal peripheral pulses GI Inspection: non-distended Palpation: soft, no hepatosplenomegaly, No guarding, No pulsatile mass and No tender Auscultation: normal bowel sounds Rectal Exam: visual inspection normal, normal sphincter tone, heme negative stool, No laceration and No lesions Skin General: no rashes or lesions noted, No jaundice and No petechiae Neuro General: alert, oriented x3, gait normal and no focal motor deficits Speech: speech normal <Elba Levi DO - Last Filed: 11/17/18 02:44> Initial Vital Signs Initial Vital Signs: Vital Signs Temperature 102.2 F H 11/13/18 10:46 Pulse Rate 92 H 11/13/18 10:46 Respiratory Rate 24 11/13/18 10:46 Blood Pressure 93/54 L 11/13/18 10:46 Pulse Oximetry 93 11/13/18 10:46 Course <KJ Guerrero - Last Filed: 11/13/18 22:07> Orders Ordered: Discontinued Medications Acetaminophen (Tylenol) 650 mg PO Q6HR PRN PRN Reason: As Needed for Fever/Mild Pain Last Admin: 11/15/18 15:58 Dose: 650 mg Admin: 11/15/18 01:22 Dose: 650 mg Albuterol (Ventolin) 2.5 mg INH [id number] PRN PRN Reason: Shortness Of Breath Last Admin: 11/15/18 05:40 Dose: 2.5 mg Admin: 11/15/18 01:27 Dose: 2.5 mg Albuterol/Ipratropium (Duoneb) 3 ml INH [id number] Last Admin: 11/16/18 07:26 Dose: 3 ml Admin: 11/15/18 19:10 Dose: 3 ml Admin: 11/15/18 14:42 Dose: 3 ml Benzocaine (Cepacol Lozenge) 1 each PO Q4HR PRN PRN Reason: Cough Benzonatate (Tessalon Perles) 100 mg PO TID PRN PRN Reason: Cough Stop: 11/16/18 23:39 Last Admin: 11/16/18 14:51 Dose: 100 mg Admin: 11/16/18 08:19 Dose: 100 mg Admin: 11/15/18 20:56 Dose: 100 mg Admin: 11/15/18 16:00 Dose: 100 mg Admin: 11/15/18 01:01 Dose: 100 mg Admin: 11/14/18 10:56 Dose: 100 mg Cyclobenzaprine HCl (Flexeril) 5 mg PO NOW ONE Stop: 11/14/18 00:46 Last Admin: 11/14/18 01:22 Dose: 5 mg Cyclobenzaprine HCl (Flexeril) 5 mg PO TID PRN PRN Reason: Muscle Spasm Last Admin: 11/16/18 14:51 Dose: 5 mg Admin: 11/16/18 08:19 Dose: 5 mg Admin: 11/15/18 16:00 Dose: 5 mg Admin: 11/15/18 09:31 Dose: 5 mg Admin: 11/15/18 01:19 Dose: 5 mg Diclofenac Sodium (Voltaren 1% Gel) 1 applic TOP QID PRN PRN Reason: Pain, Moderate (4-6) Last Admin: 11/16/18 08:20 Dose: 1 applic Admin: 11/15/18 20:56 Dose: 1 applic Admin: 11/15/18 15:58 Dose: 1 applic Admin: 11/15/18 09:31 Dose: 1 applic Ferrous Sulfate (Ferrous Sulfate) 325 mg PO DAILY [facility] Last Admin: 11/16/18 08:15 Dose: 325 mg Guaifenesin (Robitussin Liquid) 100 mg PO Q4H PRN PRN Reason: Cough Last Admin: 11/14/18 13:26 Dose: 100 mg Guaifenesin (Mucinex) 600 mg PO Q12H [facility] Last Admin: 11/14/18 13:35 Dose: Not Given Admin: 11/14/18 00:35 Dose: 600 mg Guaifenesin (Mucinex) 1,200 mg PO Q12H [facility] Last Admin: 11/16/18 06:38 Dose: 1,200 mg Admin: 11/15/18 20:58 Dose: 1,200 mg Admin: 11/15/18 09:29 Dose: 1,200 mg Admin: 11/14/18 21:35 Dose: 1,200 mg Sodium Chloride (Normal Saline 0.9%) 1,000 mls @ 1,000 mls/hr IV BOLUS ONE Stop: 11/13/18 11:56 Last Infusion: 11/13/18 13:02 Dose: 0 mls/hr Admin: 11/13/18 11:20 Dose: 1,000 mls/hr Sodium Chloride (Normal Saline 0.9%) 1,000 mls @ 100 mls/hr IV CONT ORTIZ Last Admin: 11/15/18 21:51 Dose: 75 mls/hr Infusion: 11/15/18 17:43 Dose: 75 mls/hr Admin: 11/15/18 04:23 Dose: 75 mls/hr Infusion: 11/15/18 04:23 Dose: 75 mls/hr Admin: 11/14/18 16:12 Dose: 75 mls/hr Infusion: 11/14/18 15:15 Dose: 75 mls/hr Admin: 11/14/18 01:55 Dose: 75 mls/hr Potassium Chloride 40 meq/ (Sodium Chloride) 520 mls @ 130 mls/hr IV NOW ONE Stop: 11/15/18 12:47 Last Admin: 11/15/18 10:48 Dose: 130 mls/hr Influenza Virus Vaccine (Flu Vaccine) 0.5 ml IM .ONCE ONE Stop: 11/14/18 09:01 Last Admin: 11/14/18 13:27 Dose: 0.5 ml Ketorolac Tromethamine (Toradol) 30 mg IV NOW ONE Stop: 11/13/18 11:02 Last Admin: 11/13/18 11:30 Dose: 30 mg Lidocaine (Lidoderm) 1 each TOP DAILY ORTIZ Last Admin: 11/16/18 08:17 Dose: Not Given Admin: 11/15/18 09:22 Dose: Not Given Admin: 11/14/18 10:57 Dose: Not Given Admin: 11/14/18 10:56 Dose: 1 each Lidocaine (Lidoderm (Remove Patch)) 1 each TOP BEDTIME ORTIZ Last Admin: 11/15/18 21:02 Dose: Not Given Admin: 11/14/18 22:23 Dose: 1 each Morphine Sulfate (Morphine Sulfate) 2 mg IV NOW ONE Stop: 11/14/18 01:56 Last Admin: 11/14/18 01:55 Dose: 2 mg Morphine Sulfate (Morphine Sulfate) 2 mg IV NOW ONE Stop: 11/15/18 04:20 Last Admin: 11/15/18 07:37 Dose: Not Given Morphine Sulfate (Morphine) 2 mg IV NOW ONE Stop: 11/15/18 04:31 Last Admin: 11/15/18 04:33 Dose: 2 mg Ondansetron HCl (Zofran) 4 mg IV NOW ONE Stop: 11/13/18 11:02 Last Admin: 11/13/18 11:30 Dose: 4 mg Oseltamivir Phosphate (Tamiflu) 75 mg PO BID [facility] Last Admin: 11/16/18 08:17 Dose: 75 mg Admin: 11/15/18 22:01 Dose: 75 mg Admin: 11/15/18 10:44 Dose: 75 mg Admin: 11/14/18 21:30 Dose: 75 mg Admin: 11/14/18 10:56 Dose: 75 mg Admin: 11/14/18 01:22 Dose: 75 mg Pantoprazole Sodium (Protonix) 20 mg PO DAILY [facility] Last Admin: 11/16/18 08:16 Dose: 20 mg Admin: 11/15/18 09:30 Dose: 20 mg Pseudoephedrine HCl (Pseudoephedrine Hcl) 30 mg PO Q6HR PRN PRN Reason: Congestion Last Admin: 11/15/18 09:30 Dose: 30 mg Vital Signs - 8 hr 11/13/18 14:45 11/13/18 15:00 11/13/18 15:23 Temperature 99.0 F Pulse Rate 81 84 83 Respiratory Rate 23 22 25 H Blood Pressure 103/58 L Blood Pressure [Left Arm] 103/50 L 109/40 L Pulse Oximetry 91 92 11/13/18 15:24 11/13/18 15:44 11/13/18 16:26 Temperature 99.6 F 98.8 F Pulse Rate 83 74 Respiratory Rate 26 H 18 Blood Pressure 96/46 L 105/57 L Blood Pressure [Left Arm] Pulse Oximetry 95 93 11/13/18 18:15 11/13/18 18:59 11/13/18 19:15 Temperature 99.5 F 98.5 F 98.8 F Pulse Rate 78 73 71 Respiratory Rate 18 18 16 Blood Pressure 95/50 L 114/50 L 114/47 L Blood Pressure [Left Arm] Pulse Oximetry 11/13/18 21:19 Temperature 99.4 F Pulse Rate 71 Respiratory Rate 15 Blood Pressure 125/62 Blood Pressure [Left Arm] Pulse Oximetry 93 <Elba Levi, DO - Last Filed: 11/17/18 02:44> Orders Ordered: Discontinued Medications Acetaminophen (Tylenol) 650 mg PO Q6HR PRN PRN Reason: As Needed for Fever/Mild Pain Last Admin: 11/15/18 15:58 Dose: 650 mg Admin: 11/15/18 01:22 Dose: 650 mg Albuterol (Ventolin) 2.5 mg INH [id number] PRN PRN Reason: Shortness Of Breath Last Admin: 11/15/18 05:40 Dose: 2.5 mg Admin: 11/15/18 01:27 Dose: 2.5 mg Albuterol/Ipratropium (Duoneb) 3 ml INH [id number] [id number] Last Admin: 11/16/18 07:26 Dose: 3 ml Admin: 11/15/18 19:10 Dose: 3 ml Admin: 11/15/18 14:42 Dose: 3 ml Benzocaine (Cepacol Lozenge) 1 each PO Q4HR PRN PRN Reason: Cough Benzonatate (Tessalon Perles) 100 mg PO TID PRN PRN Reason: Cough Stop: 11/16/18 23:39 Last Admin: 11/16/18 14:51 Dose: 100 mg Admin: 11/16/18 08:19 Dose: 100 mg Admin: 11/15/18 20:56 Dose: 100 mg Admin: 11/15/18 16:00 Dose: 100 mg Admin: 11/15/18 01:01 Dose: 100 mg Admin: 11/14/18 10:56 Dose: 100 mg Cyclobenzaprine HCl (Flexeril) 5 mg PO NOW ONE Stop: 11/14/18 00:46 Last Admin: 11/14/18 01:22 Dose: 5 mg Cyclobenzaprine HCl (Flexeril) 5 mg PO TID PRN PRN Reason: Muscle Spasm Last Admin: 11/16/18 14:51 Dose: 5 mg Admin: 11/16/18 08:19 Dose: 5 mg Admin: 11/15/18 16:00 Dose: 5 mg Admin: 11/15/18 09:31 Dose: 5 mg Admin: 11/15/18 01:19 Dose: 5 mg Diclofenac Sodium (Voltaren 1% Gel) 1 applic TOP QID PRN PRN Reason: Pain, Moderate (4-6) Last Admin: 11/16/18 08:20 Dose: 1 applic Admin: 11/15/18 20:56 Dose: 1 applic Admin: 11/15/18 15:58 Dose: 1 applic Admin: 11/15/18 09:31 Dose: 1 applic Ferrous Sulfate (Ferrous Sulfate) 325 mg PO DAILY [facility] Last Admin: 11/16/18 08:15 Dose: 325 mg Guaifenesin (Robitussin Liquid) 100 mg PO Q4H PRN PRN Reason: Cough Last Admin: 11/14/18 13:26 Dose: 100 mg Guaifenesin (Mucinex) 600 mg PO Q12H [facility] Last Admin: 11/14/18 13:35 Dose: Not Given Admin: 11/14/18 00:35 Dose: 600 mg Guaifenesin (Mucinex) 1,200 mg PO Q12H [facility] Last Admin: 11/16/18 06:38 Dose: 1,200 mg Admin: 11/15/18 20:58 Dose: 1,200 mg Admin: 11/15/18 09:29 Dose: 1,200 mg Admin: 11/14/18 21:35 Dose: 1,200 mg Sodium Chloride (Normal Saline 0.9%) 1,000 mls @ 1,000 mls/hr IV BOLUS ONE Stop: 11/13/18 11:56 Last Infusion: 11/13/18 13:02 Dose: 0 mls/hr Admin: 11/13/18 11:20 Dose: 1,000 mls/hr Sodium Chloride (Normal Saline 0.9%) 1,000 mls @ 100 mls/hr IV CONT ORTIZ Last Admin: 11/15/18 21:51 Dose: 75 mls/hr Infusion: 11/15/18 17:43 Dose: 75 mls/hr Admin: 11/15/18 04:23 Dose: 75 mls/hr Infusion: 11/15/18 04:23 Dose: 75 mls/hr Admin: 11/14/18 16:12 Dose: 75 mls/hr Infusion: 11/14/18 15:15 Dose: 75 mls/hr Admin: 11/14/18 01:55 Dose: 75 mls/hr Potassium Chloride 40 meq/ (Sodium Chloride) 520 mls @ 130 mls/hr IV NOW ONE Stop: 11/15/18 12:47 Last Admin: 11/15/18 10:48 Dose: 130 mls/hr Influenza Virus Vaccine (Flu Vaccine) 0.5 ml IM .ONCE ONE Stop: 11/14/18 09:01 Last Admin: 11/14/18 13:27 Dose: 0.5 ml Ketorolac Tromethamine (Toradol) 30 mg IV NOW ONE Stop: 11/13/18 11:02 Last Admin: 11/13/18 11:30 Dose: 30 mg Lidocaine (Lidoderm) 1 each TOP DAILY [facility] Last Admin: 11/16/18 08:17 Dose: Not Given Admin: 11/15/18 09:22 Dose: Not Given Admin: 11/14/18 10:57 Dose: Not Given Admin: 11/14/18 10:56 Dose: 1 each Lidocaine (Lidoderm (Remove Patch)) 1 each TOP BEDTIME [facility] Last Admin: 11/15/18 21:02 Dose: Not Given Admin: 11/14/18 22:23 Dose: 1 each Morphine Sulfate (Morphine Sulfate) 2 mg IV NOW ONE Stop: 11/14/18 01:56 Last Admin: 11/14/18 01:55 Dose: 2 mg Morphine Sulfate (Morphine Sulfate) 2 mg IV NOW ONE Stop: 11/15/18 04:20 Last Admin: 11/15/18 07:37 Dose: Not Given Morphine Sulfate (Morphine) 2 mg IV NOW ONE Stop: 11/15/18 04:31 Last Admin: 11/15/18 04:33 Dose: 2 mg Ondansetron HCl (Zofran) 4 mg IV NOW ONE Stop: 11/13/18 11:02 Last Admin: 11/13/18 11:30 Dose: 4 mg Oseltamivir Phosphate (Tamiflu) 75 mg PO BID [facility] Last Admin: 11/16/18 08:17 Dose: 75 mg Admin: 11/15/18 22:01 Dose: 75 mg Admin: 11/15/18 10:44 Dose: 75 mg Admin: 11/14/18 21:30 Dose: 75 mg Admin: 11/14/18 10:56 Dose: 75 mg Admin: 11/14/18 01:22 Dose: 75 mg Pantoprazole Sodium (Protonix) 20 mg PO DAILY [facility] Last Admin: 11/16/18 08:16 Dose: 20 mg Admin: 11/15/18 09:30 Dose: 20 mg Pseudoephedrine HCl (Pseudoephedrine Hcl) 30 mg PO Q6HR PRN PRN Reason: Congestion Last Admin: 11/15/18 09:30 Dose: 30 mg Vital Signs - 8 hr 11/13/18 14:45 11/13/18 15:00 11/13/18 15:23 Temperature 99.0 F Pulse Rate 81 84 83 Respiratory Rate 23 22 25 H Blood Pressure 103/58 L Blood Pressure [Left Arm] 103/50 L 109/40 L Pulse Oximetry 91 92 11/13/18 15:24 11/13/18 15:44 11/13/18 16:26 Temperature 99.6 F 98.8 F Pulse Rate 83 74 Respiratory Rate 26 H 18 Blood Pressure 96/46 L 105/57 L Blood Pressure [Left Arm] Pulse Oximetry 95 93 11/13/18 18:15 11/13/18 18:59 11/13/18 19:15 Temperature 99.5 F 98.5 F 98.8 F Pulse Rate 78 73 71 Respiratory Rate 18 18 16 Blood Pressure 95/50 L 114/50 L 114/47 L Blood Pressure [Left Arm] Pulse Oximetry 11/13/18 21:19 Temperature 99.4 F Pulse Rate 71 Respiratory Rate 15 Blood Pressure 125/62 Blood Pressure [Left Arm] Pulse Oximetry 93 MDM - Fever <KJ Guerrero - Last Filed: 11/13/18 22:07> Lab Data Result diagrams: 11/16/18 05:35 11/16/18 05:35 Lab Results 11/13/18 11/13/18 11/13/18 Range/Units 11:15 11:15 11:15 WBC 11.6 H (4.5-11.0) X10^3/uL RBC 2.79 L (4.0-5.2) X10^6/uL Hgb 4.3 L* (12.0-16.0) g/dL Hct 15.5 L* (36-46) % MCV 55.3 L (80-100) fL MCH 15.3 L (26-34) PG MCHC 27.6 L (30-36) % RDW 23.7 H (11.6-14.8) % Plt Count 314 (150-400) X10^3/uL Neut % (Auto) Not Reportable Lymph % (Auto) Not Reportable [place] % (Auto) Not Reportable Eos % (Auto) Not Reportable Baso % (Auto) Not Reportable Neut # (Auto) (6505-7557) /uL Lymph # (Auto) Not Reportable [place] # (Auto) Not Reportable Eos # (Auto) (0-450) /uL Baso # (Auto) Not Reportable Total Counted 100 Seg Neutrophils % 80.0 H (38-70) % Band Neutrophils % 6.0 (3-7) % Lymphocytes % (Manual) 4.0 L (25-45) % Monocytes % (Manual) 9.0 (2-11) % Eosinophils % (Manual) (2-4) % Basophils % (Manual) 1.0 (0-1) % Neutrophils # (Manual) 9976 H (6513-5302) /uL Nucleated RBCs ( - 0) #/Diff Plt Morphology Comment RBC Morphology See below Polychromasia 1+ H Hypochromasia 3+ H Poikilocytosis Anisocytosis 3+ H Microcytosis 3+ H Tear Drop Cells 1+ H Ovalocytes 2+ H Smear Path Review Percent Retic (1.06-2.63) % Haptoglobin (43-212) mg/dL PT 12.4 (10.1-12.7) SECONDS INR 1.1 (0.9-1.3) APTT 35 (26.4-36.2) SECONDS Sodium (137-145) mmol/L Potassium (3.4-5.1) mmol/L Chloride (98-107) mmol/L Carbon Dioxide (22-32) mmol/L BUN (7-17) mg/dL Creatinine (0.52-1.04) mg/dL Estimated GFR (>60) mL/min BUN/Creatinine Ratio (6-22) Glucose (70-100) mg/dL Lactate (0.7-2.1) mmol/L Calcium (8.4-10.2) mg/dL Magnesium (1.6-2.3) mg/dL Iron (37-170) ug/dL TIBC (265-497) ug/dL % Saturation (15-50) % Transferrin (206-381) mg/dL Ferritin (11.1-264) ng/mL Total Bilirubin (0.2-1.3) mg/dL Conjugated Bilirubin (0.0-0.3) md/dL Unconjugated Bilirubin (0.0-1.1) mg/dL AST (14-36) IU/L ALT (9-52) IU/L Alkaline Phosphatase (38-126) U/L Lactate Dehydrogenase (313-618) U/L Total Creatine Kinase (30-135) U/L CK-MB (CK-2) (<2.37) ng/mL CK-MB (CK-2) Rel Index (1.5-5.0) % Troponin I (0.01-0.034) ng/mL Total Protein (6.3-8.2) g/dL Albumin (3.5-5.0) g/dL Globulin (1.7-4.1) g/dL Albumin/Globulin Ratio (1.0-2.8) Lipase (23-300) U/L Vitamin B12 (239-931) pg/mL Folate (2.76-20.0) ng/mL Procalcitonin 2.49 H (<0.5) ng/mL Urine Color Urine Appearance Urine pH (4.5-8.0) Ur Specific Filer (1.000-1.035) Urine Protein (Negative) Urine Glucose (UA) (Negative) g/dL Urine Ketones (NEGATIVE) Urine Occult Blood (Negative) Urine Nitrate (Negative) Urine Bilirubin (NEGATIVE) Urine Urobilinogen (0.2) E.U./dL Ur Leukocyte Esterase (NEGATIVE) Urine RBC (0-5/HPF) Urine WBC (0-5/HPF) Ur Squamous Epith Cells Urine Bacteria (None) Hyaline Casts (None) Urine Mucus (Negative) Ur Culture Indicated? Influenza A & B (PCR) (Negative) Blood Type Antibody Screen Crossmatch 11/13/18 11/13/18 11/13/18 Range/Units 11:15 11:15 11:15 WBC (4.5-11.0) X10^3/uL RBC (4.0-5.2) X10^6/uL Hgb (12.0-16.0) g/dL Hct (36-46) % MCV (80-100) fL MCH (26-34) PG MCHC (30-36) % RDW (11.6-14.8) % Plt Count (150-400) X10^3/uL Neut % (Auto) Lymph % (Auto) [place] % (Auto) Eos % (Auto) Baso % (Auto) Neut # (Auto) (7850-2690) /uL Lymph # (Auto) [place] # (Auto) Eos # (Auto) (0-450) /uL Baso # (Auto) Total Counted Seg Neutrophils % (38-70) % Band Neutrophils % (3-7) % Lymphocytes % (Manual) (25-45) % Monocytes % (Manual) (2-11) % Eosinophils % (Manual) (2-4) % Basophils % (Manual) (0-1) % Neutrophils # (Manual) (0461-0624) /uL Nucleated RBCs ( - 0) #/Diff Plt Morphology Comment RBC Morphology Polychromasia Hypochromasia Poikilocytosis Anisocytosis Microcytosis Tear Drop Cells Ovalocytes Smear Path Review Percent Retic (1.06-2.63) % Haptoglobin (43-212) mg/dL PT (10.1-12.7) SECONDS INR (0.9-1.3) APTT (26.4-36.2) SECONDS Sodium 132 L (137-145) mmol/L Potassium 3.6 (3.4-5.1) mmol/L Chloride 94 L (98-107) mmol/L Carbon Dioxide 27 (22-32) mmol/L BUN 11 (7-17) mg/dL Creatinine 0.60 (0.52-1.04) mg/dL Estimated GFR > 60.0 (>60) mL/min BUN/Creatinine Ratio 18.3 (6-22) Glucose 112 H (70-100) mg/dL Lactate 0.9 (0.7-2.1) mmol/L Calcium 8.4 (8.4-10.2) mg/dL Magnesium (1.6-2.3) mg/dL Iron (37-170) ug/dL TIBC (265-497) ug/dL % Saturation (15-50) % Transferrin (206-381) mg/dL Ferritin (11.1-264) ng/mL Total Bilirubin 0.4 (0.2-1.3) mg/dL Conjugated Bilirubin (0.0-0.3) md/dL Unconjugated Bilirubin (0.0-1.1) mg/dL AST 38 H (14-36) IU/L ALT 32 (9-52) IU/L Alkaline Phosphatase 57 (38-126) U/L Lactate Dehydrogenase (313-618) U/L Total Creatine Kinase (30-135) U/L CK-MB (CK-2) (<2.37) ng/mL CK-MB (CK-2) Rel Index (1.5-5.0) % Troponin I (0.01-0.034) ng/mL Total Protein 7.1 (6.3-8.2) g/dL Albumin 4.2 (3.5-5.0) g/dL Globulin 2.9 (1.7-4.1) g/dL Albumin/Globulin Ratio 1.4 (1.0-2.8) Lipase 129 (23-300) U/L Vitamin B12 (239-931) pg/mL Folate (2.76-20.0) ng/mL Procalcitonin (<0.5) ng/mL Urine Color Urine Appearance Urine pH (4.5-8.0) Ur Specific [place] (1.000-1.035) Urine Protein (Negative) Urine Glucose (UA) (Negative) g/dL Urine Ketones (NEGATIVE) Urine Occult Blood (Negative) Urine Nitrate (Negative) Urine Bilirubin (NEGATIVE) Urine Urobilinogen (0.2) E.U./dL Ur Leukocyte Esterase (NEGATIVE) Urine RBC (0-5/HPF) Urine WBC (0-5/HPF) Ur Squamous Epith Cells Urine Bacteria (None) Hyaline Casts (None) Urine Mucus (Negative) Ur Culture Indicated? Influenza A & B (PCR) Positive, type a A (Negative) Blood Type Antibody Screen Crossmatch 11/13/18 11/13/18 11/13/18 Range/Units 11:15 12:08 12:30 WBC (4.5-11.0) X10^3/uL RBC (4.0-5.2) X10^6/uL Hgb (12.0-16.0) g/dL Hct (36-46) % MCV (80-100) fL MCH (26-34) PG MCHC (30-36) % RDW (11.6-14.8) % Plt Count (150-400) X10^3/uL Neut % (Auto) Lymph % (Auto) [place] % (Auto) Eos % (Auto) Baso % (Auto) Neut # (Auto) (4977-1954) /uL Lymph # (Auto) [place] # (Auto) Eos # (Auto) (0-450) /uL Baso # (Auto) Total Counted Seg Neutrophils % (38-70) % Band Neutrophils % (3-7) % Lymphocytes % (Manual) (25-45) % Monocytes % (Manual) (2-11) % Eosinophils % (Manual) (2-4) % Basophils % (Manual) (0-1) % Neutrophils # (Manual) (9338-8027) /uL Nucleated RBCs ( - 0) #/Diff Plt Morphology Comment RBC Morphology Polychromasia Hypochromasia Poikilocytosis Anisocytosis Microcytosis Tear Drop Cells Ovalocytes Smear Path Review Percent Retic (1.06-2.63) % Haptoglobin (43-212) mg/dL PT (10.1-12.7) SECONDS INR (0.9-1.3) APTT (26.4-36.2) SECONDS Sodium (137-145) mmol/L Potassium (3.4-5.1) mmol/L Chloride (98-107) mmol/L Carbon Dioxide (22-32) mmol/L BUN (7-17) mg/dL Creatinine (0.52-1.04) mg/dL Estimated GFR (>60) mL/min BUN/Creatinine Ratio (6-22) Glucose (70-100) mg/dL Lactate (0.7-2.1) mmol/L Calcium (8.4-10.2) mg/dL Magnesium (1.6-2.3) mg/dL Iron (37-170) ug/dL TIBC (265-497) ug/dL % Saturation (15-50) % Transferrin (206-381) mg/dL Ferritin (11.1-264) ng/mL Total Bilirubin (0.2-1.3) mg/dL Conjugated Bilirubin (0.0-0.3) md/dL Unconjugated Bilirubin (0.0-1.1) mg/dL AST (14-36) IU/L ALT (9-52) IU/L Alkaline Phosphatase (38-126) U/L Lactate Dehydrogenase (313-618) U/L Total Creatine Kinase 153 H (30-135) U/L CK-MB (CK-2) < 0.22 (<2.37) ng/mL CK-MB (CK-2) Rel Index 0.1 L (1.5-5.0) % Troponin I < 0.012 (0.01-0.034) ng/mL Total Protein (6.3-8.2) g/dL Albumin (3.5-5.0) g/dL Globulin (1.7-4.1) g/dL Albumin/Globulin Ratio (1.0-2.8) Lipase (23-300) U/L Vitamin B12 (239-931) pg/mL Folate (2.76-20.0) ng/mL Procalcitonin (<0.5) ng/mL Urine Color Urine Appearance Urine pH (4.5-8.0) Ur Specific Filer (1.000-1.035) Urine Protein (Negative) Urine Glucose (UA) (Negative) g/dL Urine Ketones (NEGATIVE) Urine Occult Blood (Negative) Urine Nitrate (Negative) Urine Bilirubin (NEGATIVE) Urine Urobilinogen (0.2) E.U./dL Ur Leukocyte Esterase (NEGATIVE) Urine RBC None seen (0-5/HPF) Urine WBC 1-5/hpf (0-5/HPF) Ur Squamous Epith Cells 0-1 /hpf Urine Bacteria Few (2-10) H (None) Hyaline Casts 1-5/lpf (None) Urine Mucus 1+ H (Negative) Ur Culture Indicated? Cult not indicated Influenza A & B (PCR) (Negative) Blood Type A Positive Antibody Screen Negative Crossmatch See Detail 11/13/18 11/13/18 11/13/18 Range/Units 20:30 20:30 20:30 WBC (4.5-11.0) X10^3/uL RBC (4.0-5.2) X10^6/uL Hgb (12.0-16.0) g/dL Hct (36-46) % MCV (80-100) fL MCH (26-34) PG MCHC (30-36) % RDW (11.6-14.8) % Plt Count (150-400) X10^3/uL Neut % (Auto) Lymph % (Auto) [place] % (Auto) Eos % (Auto) Baso % (Auto) Neut # (Auto) (1558-5390) /uL Lymph # (Auto) [place] # (Auto) Eos # (Auto) (0-450) /uL Baso # (Auto) Total Counted Seg Neutrophils % (38-70) % Band Neutrophils % (3-7) % Lymphocytes % (Manual) (25-45) % Monocytes % (Manual) (2-11) % Eosinophils % (Manual) (2-4) % Basophils % (Manual) (0-1) % Neutrophils # (Manual) (5142-4024) /uL Nucleated RBCs ( - 0) #/Diff Plt Morphology Comment RBC Morphology Polychromasia Hypochromasia Poikilocytosis Anisocytosis Microcytosis Tear Drop Cells Ovalocytes Smear Path Review Percent Retic (1.06-2.63) % Haptoglobin (43-212) mg/dL PT (10.1-12.7) SECONDS INR (0.9-1.3) APTT (26.4-36.2) SECONDS Sodium (137-145) mmol/L Potassium (3.4-5.1) mmol/L Chloride (98-107) mmol/L Carbon Dioxide (22-32) mmol/L BUN (7-17) mg/dL Creatinine (0.52-1.04) mg/dL Estimated GFR (>60) mL/min BUN/Creatinine Ratio (6-22) Glucose (70-100) mg/dL Lactate (0.7-2.1) mmol/L Calcium (8.4-10.2) mg/dL Magnesium (1.6-2.3) mg/dL Iron (37-170) ug/dL TIBC (265-497) ug/dL % Saturation (15-50) % Transferrin (206-381) mg/dL Ferritin 9.3 L (11.1-264) ng/mL Total Bilirubin 1.2 (0.2-1.3) mg/dL Conjugated Bilirubin 0.0 (0.0-0.3) md/dL Unconjugated Bilirubin 1.0 (0.0-1.1) mg/dL AST 50 H (14-36) IU/L ALT 33 (9-52) IU/L Alkaline Phosphatase 52 (38-126) U/L Lactate Dehydrogenase 737 H (313-618) U/L Total Creatine Kinase (30-135) U/L CK-MB (CK-2) (<2.37) ng/mL CK-MB (CK-2) Rel Index (1.5-5.0) % Troponin I (0.01-0.034) ng/mL Total Protein 6.7 (6.3-8.2) g/dL Albumin 3.9 (3.5-5.0) g/dL Globulin 2.8 (1.7-4.1) g/dL Albumin/Globulin Ratio 1.4 (1.0-2.8) Lipase (23-300) U/L Vitamin B12 (239-931) pg/mL Folate (2.76-20.0) ng/mL Procalcitonin (<0.5) ng/mL Urine Color Urine Appearance Urine pH (4.5-8.0) Ur Specific Filer (1.000-1.035) Urine Protein (Negative) Urine Glucose (UA) (Negative) g/dL Urine Ketones (NEGATIVE) Urine Occult Blood (Negative) Urine Nitrate (Negative) Urine Bilirubin (NEGATIVE) Urine Urobilinogen (0.2) E.U./dL Ur Leukocyte Esterase (NEGATIVE) Urine RBC (0-5/HPF) Urine WBC (0-5/HPF) Ur Squamous Epith Cells Urine Bacteria (None) Hyaline Casts (None) Urine Mucus (Negative) Ur Culture Indicated? Influenza A & B (PCR) (Negative) Blood Type Antibody Screen Crossmatch 11/13/18 11/13/18 11/13/18 Range/Units 20:30 20:38 20:38 WBC 10.8 (4.5-11.0) X10^3/uL RBC 3.48 L (4.0-5.2) X10^6/uL Hgb 7.0 L (12.0-16.0) g/dL Hct 22.8 L (36-46) % MCV 65.4 L D (80-100) fL MCH 20.2 L (26-34) PG MCHC 30.9 D (30-36) % RDW 33.8 H (11.6-14.8) % Plt Count 344 (150-400) X10^3/uL Neut % (Auto) Lymph % (Auto) [place] % (Auto) Eos % (Auto) Baso % (Auto) Neut # (Auto) (3018-7644) /uL Lymph # (Auto) [place] # (Auto) Eos # (Auto) (0-450) /uL Baso # (Auto) Total Counted 100 Seg Neutrophils % 65.0 (38-70) % Band Neutrophils % 2.0 L (3-7) % Lymphocytes % (Manual) 10.0 L (25-45) % Monocytes % (Manual) 18.0 H (2-11) % Eosinophils % (Manual) 5.0 H (2-4) % Basophils % (Manual) 0.0 (0-1) % Neutrophils # (Manual) 7236 H (5090-6722) /uL Nucleated RBCs ( - 0) #/Diff Plt Morphology Comment RBC Morphology Not Reportable Polychromasia Hypochromasia Poikilocytosis 3+ H Anisocytosis 3+ H Microcytosis 3+ H Tear Drop Cells Ovalocytes Smear Path Review Percent Retic 2.2 (1.06-2.63) % Haptoglobin 185 (43-212) mg/dL PT (10.1-12.7) SECONDS INR (0.9-1.3) APTT (26.4-36.2) SECONDS Sodium (137-145) mmol/L Potassium (3.4-5.1) mmol/L Chloride (98-107) mmol/L Carbon Dioxide (22-32) mmol/L BUN (7-17) mg/dL Creatinine (0.52-1.04) mg/dL Estimated GFR (>60) mL/min BUN/Creatinine Ratio (6-22) Glucose (70-100) mg/dL Lactate (0.7-2.1) mmol/L Calcium (8.4-10.2) mg/dL Magnesium (1.6-2.3) mg/dL Iron (37-170) ug/dL TIBC (265-497) ug/dL % Saturation (15-50) % Transferrin (206-381) mg/dL Ferritin (11.1-264) ng/mL Total Bilirubin (0.2-1.3) mg/dL Conjugated Bilirubin (0.0-0.3) md/dL Unconjugated Bilirubin (0.0-1.1) mg/dL AST (14-36) IU/L ALT (9-52) IU/L Alkaline Phosphatase (38-126) U/L Lactate Dehydrogenase (313-618) U/L Total Creatine Kinase (30-135) U/L CK-MB (CK-2) (<2.37) ng/mL CK-MB (CK-2) Rel Index (1.5-5.0) % Troponin I (0.01-0.034) ng/mL Total Protein (6.3-8.2) g/dL Albumin (3.5-5.0) g/dL Globulin (1.7-4.1) g/dL Albumin/Globulin Ratio (1.0-2.8) Lipase (23-300) U/L Vitamin B12 (239-931) pg/mL Folate (2.76-20.0) ng/mL Procalcitonin (<0.5) ng/mL Urine Color Urine Appearance Urine pH (4.5-8.0) Ur Specific Filer (1.000-1.035) Urine Protein (Negative) Urine Glucose (UA) (Negative) g/dL Urine Ketones (NEGATIVE) Urine Occult Blood (Negative) Urine Nitrate (Negative) Urine Bilirubin (NEGATIVE) Urine Urobilinogen (0.2) E.U./dL Ur Leukocyte Esterase (NEGATIVE) Urine RBC (0-5/HPF) Urine WBC (0-5/HPF) Ur Squamous Epith Cells Urine Bacteria (None) Hyaline Casts (None) Urine Mucus (Negative) Ur Culture Indicated? Influenza A & B (PCR) (Negative) Blood Type Antibody Screen Crossmatch 11/13/18 11/13/18 11/14/18 Range/Units 20:38 20:38 00:27 WBC (4.5-11.0) X10^3/uL RBC (4.0-5.2) X10^6/uL Hgb (12.0-16.0) g/dL Hct (36-46) % MCV (80-100) fL MCH (26-34) PG MCHC (30-36) % RDW (11.6-14.8) % Plt Count (150-400) X10^3/uL Neut % (Auto) Lymph % (Auto) [place] % (Auto) Eos % (Auto) Baso % (Auto) Neut # (Auto) (1164-6052) /uL Lymph # (Auto) [place] # (Auto) Eos # (Auto) (0-450) /uL Baso # (Auto) Total Counted Seg Neutrophils % (38-70) % Band Neutrophils % (3-7) % Lymphocytes % (Manual) (25-45) % Monocytes % (Manual) (2-11) % Eosinophils % (Manual) (2-4) % Basophils % (Manual) (0-1) % Neutrophils # (Manual) (2717-8623) /uL Nucleated RBCs ( - 0) #/Diff Plt Morphology Comment RBC Morphology Polychromasia Hypochromasia Poikilocytosis Anisocytosis Microcytosis Tear Drop Cells Ovalocytes Smear Path Review Percent Retic (1.06-2.63) % Haptoglobin (43-212) mg/dL PT (10.1-12.7) SECONDS INR (0.9-1.3) APTT (26.4-36.2) SECONDS Sodium (137-145) mmol/L Potassium (3.4-5.1) mmol/L Chloride (98-107) mmol/L Carbon Dioxide (22-32) mmol/L BUN (7-17) mg/dL Creatinine (0.52-1.04) mg/dL Estimated GFR (>60) mL/min BUN/Creatinine Ratio (6-22) Glucose (70-100) mg/dL Lactate (0.7-2.1) mmol/L Calcium (8.4-10.2) mg/dL Magnesium (1.6-2.3) mg/dL Iron 70 (37-170) ug/dL TIBC 379 (265-497) ug/dL % Saturation 18 (15-50) % Transferrin 381 (206-381) mg/dL Ferritin (11.1-264) ng/mL Total Bilirubin (0.2-1.3) mg/dL Conjugated Bilirubin (0.0-0.3) md/dL Unconjugated Bilirubin (0.0-1.1) mg/dL AST (14-36) IU/L ALT (9-52) IU/L Alkaline Phosphatase (38-126) U/L Lactate Dehydrogenase (313-618) U/L Total Creatine Kinase 190 H (30-135) U/L CK-MB (CK-2) 0.60 D (<2.37) ng/mL CK-MB (CK-2) Rel Index 0.3 L (1.5-5.0) % Troponin I < 0.012 (0.01-0.034) ng/mL Total Protein (6.3-8.2) g/dL Albumin (3.5-5.0) g/dL Globulin (1.7-4.1) g/dL Albumin/Globulin Ratio (1.0-2.8) Lipase (23-300) U/L Vitamin B12 617 (239-931) pg/mL Folate 19.6 (2.76-20.0) ng/mL Procalcitonin (<0.5) ng/mL Urine Color Urine Appearance Urine pH (4.5-8.0) Ur Specific Filer (1.000-1.035) Urine Protein (Negative) Urine Glucose (UA) (Negative) g/dL Urine Ketones (NEGATIVE) Urine Occult Blood (Negative) Urine Nitrate (Negative) Urine Bilirubin (NEGATIVE) Urine Urobilinogen (0.2) E.U./dL Ur Leukocyte Esterase (NEGATIVE) Urine RBC (0-5/HPF) Urine WBC (0-5/HPF) Ur Squamous Epith Cells Urine Bacteria (None) Hyaline Casts (None) Urine Mucus (Negative) Ur Culture Indicated? Influenza A & B (PCR) (Negative) Blood Type Antibody Screen Crossmatch 11/14/18 11/14/18 11/14/18 Range/Units 00:40 06:20 06:20 WBC 10.5 (4.5-11.0) X10^3/uL RBC 3.66 L (4.0-5.2) X10^6/uL Hgb 7.4 L (12.0-16.0) g/dL Hct 24.0 L (36-46) % MCV 65.6 L (80-100) fL MCH 20.2 L (26-34) PG MCHC 30.9 (30-36) % RDW 32.7 H (11.6-14.8) % Plt Count 341 (150-400) X10^3/uL Neut % (Auto) 74.0 Lymph % (Auto) 11.8 L [place] % (Auto) 12.6 Eos % (Auto) 0.6 L Baso % (Auto) 1.0 Neut # (Auto) 7800 H (0459-6966) /uL Lymph # (Auto) 1200 [place] # (Auto) 1300 H Eos # (Auto) 100 (0-450) /uL Baso # (Auto) 100 Total Counted Seg Neutrophils % (38-70) % Band Neutrophils % (3-7) % Lymphocytes % (Manual) (25-45) % Monocytes % (Manual) (2-11) % Eosinophils % (Manual) (2-4) % Basophils % (Manual) (0-1) % Neutrophils # (Manual) (6999-5586) /uL Nucleated RBCs ( - 0) #/Diff Plt Morphology Comment RBC Morphology See below Polychromasia 1+ H Hypochromasia 3+ H Poikilocytosis 2+ H Anisocytosis 3+ H Microcytosis 3+ H Tear Drop Cells Ovalocytes Smear Path Review Percent Retic (1.06-2.63) % Haptoglobin (43-212) mg/dL PT (10.1-12.7) SECONDS INR (0.9-1.3) APTT (26.4-36.2) SECONDS Sodium 133 L (137-145) mmol/L Potassium 3.4 (3.4-5.1) mmol/L Chloride 97 L (98-107) mmol/L Carbon Dioxide 25 (22-32) mmol/L BUN 7 (7-17) mg/dL Creatinine 0.50 L (0.52-1.04) mg/dL Estimated GFR > 60.0 (>60) mL/min BUN/Creatinine Ratio 14.0 (6-22) Glucose 91 (70-100) mg/dL Lactate (0.7-2.1) mmol/L Calcium 8.1 L (8.4-10.2) mg/dL Magnesium 2.0 (1.6-2.3) mg/dL Iron (37-170) ug/dL TIBC (265-497) ug/dL % Saturation (15-50) % Transferrin (206-381) mg/dL Ferritin (11.1-264) ng/mL Total Bilirubin (0.2-1.3) mg/dL Conjugated Bilirubin (0.0-0.3) md/dL Unconjugated Bilirubin (0.0-1.1) mg/dL AST (14-36) IU/L ALT (9-52) IU/L Alkaline Phosphatase (38-126) U/L Lactate Dehydrogenase (313-618) U/L Total Creatine Kinase (30-135) U/L CK-MB (CK-2) (<2.37) ng/mL CK-MB (CK-2) Rel Index (1.5-5.0) % Troponin I (0.01-0.034) ng/mL Total Protein (6.3-8.2) g/dL Albumin (3.5-5.0) g/dL Globulin (1.7-4.1) g/dL Albumin/Globulin Ratio (1.0-2.8) Lipase (23-300) U/L Vitamin B12 (239-931) pg/mL Folate (2.76-20.0) ng/mL Procalcitonin (<0.5) ng/mL Urine Color Yellow Urine Appearance Clear Urine pH 6.0 (4.5-8.0) Ur Specific Filer <=1.005 (1.000-1.035) Urine Protein Negative (Negative) Urine Glucose (UA) Negative (Negative) g/dL Urine Ketones Negative (NEGATIVE) Urine Occult Blood Negative (Negative) Urine Nitrate Negative (Negative) Urine Bilirubin Negative (NEGATIVE) Urine Urobilinogen 1.0 (0.2) E.U./dL Ur Leukocyte Esterase Negative (NEGATIVE) Urine RBC None seen (0-5/HPF) Urine WBC None seen (0-5/HPF) Ur Squamous Epith Cells 0-1 /hpf Urine Bacteria Few (2-10) H (None) Hyaline Casts (None) Urine Mucus (Negative) Ur Culture Indicated? Cult not indicated Influenza A & B (PCR) (Negative) Blood Type Antibody Screen Crossmatch 11/15/18 11/15/18 11/15/18 Range/Units 05:45 05:45 05:45 WBC 9.5 (4.5-11.0) X10^3/uL RBC 3.60 L (4.0-5.2) X10^6/uL Hgb 7.2 L (12.0-16.0) g/dL Hct 24.2 L (36-46) % MCV 67.2 L (80-100) fL MCH 20.0 L (26-34) PG MCHC 29.8 L (30-36) % RDW 33.7 H (11.6-14.8) % Plt Count 313 (150-400) X10^3/uL Neut % (Auto) 66.2 Lymph % (Auto) 19.1 L [place] % (Auto) 13.0 Eos % (Auto) 0.7 L Baso % (Auto) 1.0 Neut # (Auto) 6300 (1984-3986) /uL Lymph # (Auto) 1800 [place] # (Auto) 1200 H Eos # (Auto) 100 (0-450) /uL Baso # (Auto) 100 Total Counted Seg Neutrophils % (38-70) % Band Neutrophils % (3-7) % Lymphocytes % (Manual) (25-45) % Monocytes % (Manual) (2-11) % Eosinophils % (Manual) (2-4) % Basophils % (Manual) (0-1) % Neutrophils # (Manual) (6378-1214) /uL Nucleated RBCs 1 H ( - 0) #/Diff Plt Morphology Comment RBC Morphology Not Reportable Polychromasia 2+ H Hypochromasia 2+ H Poikilocytosis Anisocytosis Microcytosis 3+ H Tear Drop Cells Ovalocytes Smear Path Review Percent Retic (1.06-2.63) % Haptoglobin (43-212) mg/dL PT (10.1-12.7) SECONDS INR (0.9-1.3) APTT (26.4-36.2) SECONDS Sodium 135 L (137-145) mmol/L Potassium 3.1 L (3.4-5.1) mmol/L Chloride 100 (98-107) mmol/L Carbon Dioxide 25 (22-32) mmol/L BUN 6 L (7-17) mg/dL Creatinine 0.50 L (0.52-1.04) mg/dL Estimated GFR > 60.0 (>60) mL/min BUN/Creatinine Ratio 12.0 (6-22) Glucose 100 (70-100) mg/dL Lactate (0.7-2.1) mmol/L Calcium 8.3 L (8.4-10.2) mg/dL Magnesium (1.6-2.3) mg/dL Iron (37-170) ug/dL TIBC (265-497) ug/dL % Saturation (15-50) % Transferrin (206-381) mg/dL Ferritin (11.1-264) ng/mL Total Bilirubin 0.6 (0.2-1.3) mg/dL Conjugated Bilirubin (0.0-0.3) md/dL Unconjugated Bilirubin (0.0-1.1) mg/dL AST 36 (14-36) IU/L ALT 35 (9-52) IU/L Alkaline Phosphatase 54 (38-126) U/L Lactate Dehydrogenase (313-618) U/L Total Creatine Kinase (30-135) U/L CK-MB (CK-2) (<2.37) ng/mL CK-MB (CK-2) Rel Index (1.5-5.0) % Troponin I (0.01-0.034) ng/mL Total Protein 6.5 (6.3-8.2) g/dL Albumin 3.8 (3.5-5.0) g/dL Globulin 2.7 (1.7-4.1) g/dL Albumin/Globulin Ratio 1.4 (1.0-2.8) Lipase (23-300) U/L Vitamin B12 (239-931) pg/mL Folate (2.76-20.0) ng/mL Procalcitonin 0.52 H (<0.5) ng/mL Urine Color Urine Appearance Urine pH (4.5-8.0) Ur Specific Filer (1.000-1.035) Urine Protein (Negative) Urine Glucose (UA) (Negative) g/dL Urine Ketones (NEGATIVE) Urine Occult Blood (Negative) Urine Nitrate (Negative) Urine Bilirubin (NEGATIVE) Urine Urobilinogen (0.2) E.U./dL Ur Leukocyte Esterase (NEGATIVE) Urine RBC (0-5/HPF) Urine WBC (0-5/HPF) Ur Squamous Epith Cells Urine Bacteria (None) Hyaline Casts (None) Urine Mucus (Negative) Ur Culture Indicated? Influenza A & B (PCR) (Negative) Blood Type Antibody Screen Crossmatch 11/15/18 11/16/18 11/16/18 Range/Units 05:45 05:35 05:35 WBC 9.7 (4.5-11.0) X10^3/uL RBC 3.68 L (4.0-5.2) X10^6/uL Hgb 7.5 L (12.0-16.0) g/dL Hct 24.6 L (36-46) % MCV 67.0 L (80-100) fL MCH 20.3 L (26-34) PG MCHC 30.3 (30-36) % RDW 34.7 H (11.6-14.8) % Plt Count 348 (150-400) X10^3/uL Neut % (Auto) 75.0 Lymph % (Auto) 13.0 L [place] % (Auto) 9.4 Eos % (Auto) 1.7 L Baso % (Auto) 0.9 Neut # (Auto) 7300 H (2838-7007) /uL Lymph # (Auto) 1300 [place] # (Auto) 900 Eos # (Auto) 200 (0-450) /uL Baso # (Auto) 100 Total Counted Seg Neutrophils % (38-70) % Band Neutrophils % (3-7) % Lymphocytes % (Manual) (25-45) % Monocytes % (Manual) (2-11) % Eosinophils % (Manual) (2-4) % Basophils % (Manual) (0-1) % Neutrophils # (Manual) (3426-2219) /uL Nucleated RBCs ( - 0) #/Diff Plt Morphology Comment RBC Morphology See below Polychromasia 2+ H Hypochromasia 2+ H Poikilocytosis 1+ H Anisocytosis 3+ H Microcytosis 3+ H Tear Drop Cells Ovalocytes Smear Path Review Percent Retic (1.06-2.63) % Haptoglobin (43-212) mg/dL PT (10.1-12.7) SECONDS INR (0.9-1.3) APTT (26.4-36.2) SECONDS Sodium (137-145) mmol/L Potassium (3.4-5.1) mmol/L Chloride (98-107) mmol/L Carbon Dioxide (22-32) mmol/L BUN (7-17) mg/dL Creatinine (0.52-1.04) mg/dL Estimated GFR (>60) mL/min BUN/Creatinine Ratio (6-22) Glucose (70-100) mg/dL Lactate (0.7-2.1) mmol/L Calcium (8.4-10.2) mg/dL Magnesium 2.1 (1.6-2.3) mg/dL Iron (37-170) ug/dL TIBC (265-497) ug/dL % Saturation (15-50) % Transferrin (206-381) mg/dL Ferritin (11.1-264) ng/mL Total Bilirubin (0.2-1.3) mg/dL Conjugated Bilirubin (0.0-0.3) md/dL Unconjugated Bilirubin (0.0-1.1) mg/dL AST (14-36) IU/L ALT (9-52) IU/L Alkaline Phosphatase (38-126) U/L Lactate Dehydrogenase (313-618) U/L Total Creatine Kinase (30-135) U/L CK-MB (CK-2) (<2.37) ng/mL CK-MB (CK-2) Rel Index (1.5-5.0) % Troponin I (0.01-0.034) ng/mL Total Protein (6.3-8.2) g/dL Albumin (3.5-5.0) g/dL Globulin (1.7-4.1) g/dL Albumin/Globulin Ratio (1.0-2.8) Lipase (23-300) U/L Vitamin B12 (239-931) pg/mL Folate (2.76-20.0) ng/mL Procalcitonin 0.19 (<0.5) ng/mL Urine Color Urine Appearance Urine pH (4.5-8.0) Ur Specific Filer (1.000-1.035) Urine Protein (Negative) Urine Glucose (UA) (Negative) g/dL Urine Ketones (NEGATIVE) Urine Occult Blood (Negative) Urine Nitrate (Negative) Urine Bilirubin (NEGATIVE) Urine Urobilinogen (0.2) E.U./dL Ur Leukocyte Esterase (NEGATIVE) Urine RBC (0-5/HPF) Urine WBC (0-5/HPF) Ur Squamous Epith Cells Urine Bacteria (None) Hyaline Casts (None) Urine Mucus (Negative) Ur Culture Indicated? Influenza A & B (PCR) (Negative) Blood Type Antibody Screen Crossmatch 11/16/18 Range/Units 05:35 WBC (4.5-11.0) X10^3/uL RBC (4.0-5.2) X10^6/uL Hgb (12.0-16.0) g/dL Hct (36-46) % MCV (80-100) fL MCH (26-34) PG MCHC (30-36) % RDW (11.6-14.8) % Plt Count (150-400) X10^3/uL Neut % (Auto) Lymph % (Auto) [place] % (Auto) Eos % (Auto) Baso % (Auto) Neut # (Auto) (2738-5352) /uL Lymph # (Auto) [place] # (Auto) Eos # (Auto) (0-450) /uL Baso # (Auto) Total Counted Seg Neutrophils % (38-70) % Band Neutrophils % (3-7) % Lymphocytes % (Manual) (25-45) % Monocytes % (Manual) (2-11) % Eosinophils % (Manual) (2-4) % Basophils % (Manual) (0-1) % Neutrophils # (Manual) (5040-8745) /uL Nucleated RBCs ( - 0) #/Diff Plt Morphology Comment RBC Morphology Polychromasia Hypochromasia Poikilocytosis Anisocytosis Microcytosis Tear Drop Cells Ovalocytes Smear Path Review Percent Retic (1.06-2.63) % Haptoglobin (43-212) mg/dL PT (10.1-12.7) SECONDS INR (0.9-1.3) APTT (26.4-36.2) SECONDS Sodium 137 (137-145) mmol/L Potassium 3.9 (3.4-5.1) mmol/L Chloride 105 (98-107) mmol/L Carbon Dioxide 24 (22-32) mmol/L BUN 4 L (7-17) mg/dL Creatinine 0.40 L (0.52-1.04) mg/dL Estimated GFR > 60.0 (>60) mL/min BUN/Creatinine Ratio 10.0 (6-22) Glucose 96 (70-100) mg/dL Lactate (0.7-2.1) mmol/L Calcium 8.3 L (8.4-10.2) mg/dL Magnesium 1.9 (1.6-2.3) mg/dL Iron (37-170) ug/dL TIBC (265-497) ug/dL % Saturation (15-50) % Transferrin (206-381) mg/dL Ferritin (11.1-264) ng/mL Total Bilirubin 0.4 (0.2-1.3) mg/dL Conjugated Bilirubin (0.0-0.3) md/dL Unconjugated Bilirubin (0.0-1.1) mg/dL AST 48 H (14-36) IU/L ALT 34 (9-52) IU/L Alkaline Phosphatase 50 (38-126) U/L Lactate Dehydrogenase (313-618) U/L Total Creatine Kinase (30-135) U/L CK-MB (CK-2) (<2.37) ng/mL CK-MB (CK-2) Rel Index (1.5-5.0) % Troponin I (0.01-0.034) ng/mL Total Protein 6.1 L (6.3-8.2) g/dL Albumin 3.4 L (3.5-5.0) g/dL Globulin 2.7 (1.7-4.1) g/dL Albumin/Globulin Ratio 1.3 (1.0-2.8) Lipase (23-300) U/L Vitamin B12 (239-931) pg/mL Folate (2.76-20.0) ng/mL Procalcitonin (<0.5) ng/mL Urine Color Urine Appearance Urine pH (4.5-8.0) Ur Specific Filer (1.000-1.035) Urine Protein (Negative) Urine Glucose (UA) (Negative) g/dL Urine Ketones (NEGATIVE) Urine Occult Blood (Negative) Urine Nitrate (Negative) Urine Bilirubin (NEGATIVE) Urine Urobilinogen (0.2) E.U./dL Ur Leukocyte Esterase (NEGATIVE) Urine RBC (0-5/HPF) Urine WBC (0-5/HPF) Ur Squamous Epith Cells Urine Bacteria (None) Hyaline Casts (None) Urine Mucus (Negative) Ur Culture Indicated? Influenza A & B (PCR) (Negative) Blood Type Antibody Screen Crossmatch Point of Care Testing Stool Occult Blood Negative Urine Dip Bedside Urine Glucose Negative Bedside Urine Bilirubin - Negative Bedside Urine Ketone +/- 5 Urine Specific Filer 1.025 Bedside Urine Occult Blood - Negative Bedside Urine pH 5.5 Bedside Urine Protein + 30 Bedside Urine Urobilinogen +/- 1mg Bedside Urine Nitrite - Negative Bedside Urine Leukocytes - Negative Esterase Imaging Data Chest x-ray: Radiologist's impression: [address] [address] XRay Report Signed Patient: Am[facility] Crow [facility]#: [id number] : 1970Acct:[id number] Age/Sex: 48 / FDate of Service: 11/13/18 Loc: ED Accession Number: [id number] Procedure: XR chest 1V Ordering Provider: Elba Levi D.O. PROCEDURE: XR CHEST 1V INDICATIONS: suspected sepsis TECHNIQUE: One view of the chest was acquired. COMPARISON: None. FINDINGS: Surgical changes and devices: Cervical spine fixation hardware. Lungs and pleura: Lungs are clear. No pleural effusions or pneumothorax. Mediastinum: Mediastinal contours appear normal. Heart size is normal. Bones and chest wall: No suspicious bony lesions. Overlying soft tissues appear unremarkable. IMPRESSION: No acute cardiopulmonary disease process. Dictated by: Leidy Conti MD, PhD on 11/13/2018 at 11:43 Approved by: Leidy Conti MD, PhD on 11/13/2018 at 11:44 ECG Data Interpretation: EKG shows normal sinus rhythm with no ST elevation or depression. No ectopy. Ventricular rate of 84. Pr interval of 132. QRS duration of 87. QTC of 404. MDM Narrative Medical decision making narrative: CBC resulted with critical value of her hemoglobin and hematocrit at 4.3 and 15.5 respectively. Patient denies having any dark stool or vomiting blood. She does have a history of iron deficiency anemia she does state she has not been taking her iron pills for the last couple of years. She does state that she has had received transfusions in the past but that was multiple years ago and was when she had a gastric ulcer. She denies having any stomach pain at this time other than some periodic abdominal wall pain is secondary to the cough that she has had. No apparent source of bleeding is appreciated. Influenza swab was obtained and was positive for flu A. Procalcitonin was elevated urinalysis was obtained was negative for urinary tract infection. Chest x-ray was obtained and was negative for any acute findings. Stool Guaiac was obtained and was negative. Type and screen was ordered and she was ordered 2 units packed red blood cells. Patient is admitted to inpatient services for monitoring. Hospitalist Dr. Almendarez accepted patient <Elba Levi DO - Last Filed: 11/17/18 02:44> Lab Data Lab Results 11/13/18 11/13/18 11/13/18 Range/Units 11:15 11:15 11:15 WBC 11.6 H (4.5-11.0) X10^3/uL RBC 2.79 L (4.0-5.2) X10^6/uL Hgb 4.3 L* (12.0-16.0) g/dL Hct 15.5 L* (36-46) % MCV 55.3 L (80-100) fL MCH 15.3 L (26-34) PG MCHC 27.6 L (30-36) % RDW 23.7 H (11.6-14.8) % Plt Count 314 (150-400) X10^3/uL Neut % (Auto) Not Reportable Lymph % (Auto) Not Reportable [place] % (Auto) Not Reportable Eos % (Auto) Not Reportable Baso % (Auto) Not Reportable Neut # (Auto) (6180-2269) /uL Lymph # (Auto) Not Reportable [place] # (Auto) Not Reportable Eos # (Auto) (0-450) /uL Baso # (Auto) Not Reportable Total Counted 100 Seg Neutrophils % 80.0 H (38-70) % Band Neutrophils % 6.0 (3-7) % Lymphocytes % (Manual) 4.0 L (25-45) % Monocytes % (Manual) 9.0 (2-11) % Eosinophils % (Manual) (2-4) % Basophils % (Manual) 1.0 (0-1) % Neutrophils # (Manual) 9976 H (9770-9266) /uL Nucleated RBCs ( - 0) #/Diff Plt Morphology Comment RBC Morphology See below Polychromasia 1+ H Hypochromasia 3+ H Poikilocytosis Anisocytosis 3+ H Microcytosis 3+ H Tear Drop Cells 1+ H Ovalocytes 2+ H Smear Path Review Percent Retic (1.06-2.63) % Haptoglobin (43-212) mg/dL PT 12.4 (10.1-12.7) SECONDS INR 1.1 (0.9-1.3) APTT 35 (26.4-36.2) SECONDS Sodium (137-145) mmol/L Potassium (3.4-5.1) mmol/L Chloride (98-107) mmol/L Carbon Dioxide (22-32) mmol/L BUN (7-17) mg/dL Creatinine (0.52-1.04) mg/dL Estimated GFR (>60) mL/min BUN/Creatinine Ratio (6-22) Glucose (70-100) mg/dL Lactate (0.7-2.1) mmol/L Calcium (8.4-10.2) mg/dL Magnesium (1.6-2.3) mg/dL Iron (37-170) ug/dL TIBC (265-497) ug/dL % Saturation (15-50) % Transferrin (206-381) mg/dL Ferritin (11.1-264) ng/mL Total Bilirubin (0.2-1.3) mg/dL Conjugated Bilirubin (0.0-0.3) md/dL Unconjugated Bilirubin (0.0-1.1) mg/dL AST (14-36) IU/L ALT (9-52) IU/L Alkaline Phosphatase (38-126) U/L Lactate Dehydrogenase (313-618) U/L Total Creatine Kinase (30-135) U/L CK-MB (CK-2) (<2.37) ng/mL CK-MB (CK-2) Rel Index (1.5-5.0) % Troponin I (0.01-0.034) ng/mL Total Protein (6.3-8.2) g/dL Albumin (3.5-5.0) g/dL Globulin (1.7-4.1) g/dL Albumin/Globulin Ratio (1.0-2.8) Lipase (23-300) U/L Vitamin B12 (239-931) pg/mL Folate (2.76-20.0) ng/mL Procalcitonin 2.49 H (<0.5) ng/mL Urine Color Urine Appearance Urine pH (4.5-8.0) Ur Specific Filer (1.000-1.035) Urine Protein (Negative) Urine Glucose (UA) (Negative) g/dL Urine Ketones (NEGATIVE) Urine Occult Blood (Negative) Urine Nitrate (Negative) Urine Bilirubin (NEGATIVE) Urine Urobilinogen (0.2) E.U./dL Ur Leukocyte Esterase (NEGATIVE) Urine RBC (0-5/HPF) Urine WBC (0-5/HPF) Ur Squamous Epith Cells Urine Bacteria (None) Hyaline Casts (None) Urine Mucus (Negative) Ur Culture Indicated? Influenza A & B (PCR) (Negative) Blood Type Antibody Screen Crossmatch 11/13/18 11/13/18 11/13/18 Range/Units 11:15 11:15 11:15 WBC (4.5-11.0) X10^3/uL RBC (4.0-5.2) X10^6/uL Hgb (12.0-16.0) g/dL Hct (36-46) % MCV (80-100) fL MCH (26-34) PG MCHC (30-36) % RDW (11.6-14.8) % Plt Count (150-400) X10^3/uL Neut % (Auto) Lymph % (Auto) [place] % (Auto) Eos % (Auto) Baso % (Auto) Neut # (Auto) (0816-9683) /uL Lymph # (Auto) [place] # (Auto) Eos # (Auto) (0-450) /uL Baso # (Auto) Total Counted Seg Neutrophils % (38-70) % Band Neutrophils % (3-7) % Lymphocytes % (Manual) (25-45) % Monocytes % (Manual) (2-11) % Eosinophils % (Manual) (2-4) % Basophils % (Manual) (0-1) % Neutrophils # (Manual) (9615-6128) /uL Nucleated RBCs ( - 0) #/Diff Plt Morphology Comment RBC Morphology Polychromasia Hypochromasia Poikilocytosis Anisocytosis Microcytosis Tear Drop Cells Ovalocytes Smear Path Review Percent Retic (1.06-2.63) % Haptoglobin (43-212) mg/dL PT (10.1-12.7) SECONDS INR (0.9-1.3) APTT (26.4-36.2) SECONDS Sodium 132 L (137-145) mmol/L Potassium 3.6 (3.4-5.1) mmol/L Chloride 94 L (98-107) mmol/L Carbon Dioxide 27 (22-32) mmol/L BUN 11 (7-17) mg/dL Creatinine 0.60 (0.52-1.04) mg/dL Estimated GFR > 60.0 (>60) mL/min BUN/Creatinine Ratio 18.3 (6-22) Glucose 112 H (70-100) mg/dL Lactate 0.9 (0.7-2.1) mmol/L Calcium 8.4 (8.4-10.2) mg/dL Magnesium (1.6-2.3) mg/dL Iron (37-170) ug/dL TIBC (265-497) ug/dL % Saturation (15-50) % Transferrin (206-381) mg/dL Ferritin (11.1-264) ng/mL Total Bilirubin 0.4 (0.2-1.3) mg/dL Conjugated Bilirubin (0.0-0.3) md/dL Unconjugated Bilirubin (0.0-1.1) mg/dL AST 38 H (14-36) IU/L ALT 32 (9-52) IU/L Alkaline Phosphatase 57 (38-126) U/L Lactate Dehydrogenase (313-618) U/L Total Creatine Kinase (30-135) U/L CK-MB (CK-2) (<2.37) ng/mL CK-MB (CK-2) Rel Index (1.5-5.0) % Troponin I (0.01-0.034) ng/mL Total Protein 7.1 (6.3-8.2) g/dL Albumin 4.2 (3.5-5.0) g/dL Globulin 2.9 (1.7-4.1) g/dL Albumin/Globulin Ratio 1.4 (1.0-2.8) Lipase 129 (23-300) U/L Vitamin B12 (239-931) pg/mL Folate (2.76-20.0) ng/mL Procalcitonin (<0.5) ng/mL Urine Color Urine Appearance Urine pH (4.5-8.0) Ur Specific [place]iler (1.000-1.035) Urine Protein (Negative) Urine Glucose (UA) (Negative) g/dL Urine Ketones (NEGATIVE) Urine Occult Blood (Negative) Urine Nitrate (Negative) Urine Bilirubin (NEGATIVE) Urine Urobilinogen (0.2) E.U./dL Ur Leukocyte Esterase (NEGATIVE) Urine RBC (0-5/HPF) Urine WBC (0-5/HPF) Ur Squamous Epith Cells Urine Bacteria (None) Hyaline Casts (None) Urine Mucus (Negative) Ur Culture Indicated? Influenza A & B (PCR) Positive, type a A (Negative) Blood Type Antibody Screen Crossmatch 11/13/18 11/13/18 11/13/18 Range/Units 11:15 12:08 12:30 WBC (4.5-11.0) X10^3/uL RBC (4.0-5.2) X10^6/uL Hgb (12.0-16.0) g/dL Hct (36-46) % MCV (80-100) fL MCH (26-34) PG MCHC (30-36) % RDW (11.6-14.8) % Plt Count (150-400) X10^3/uL Neut % (Auto) Lymph % (Auto) [place] % (Auto) Eos % (Auto) Baso % (Auto) Neut # (Auto) (3790-6114) /uL Lymph # (Auto) [place] # (Auto) Eos # (Auto) (0-450) /uL Baso # (Auto) Total Counted Seg Neutrophils % (38-70) % Band Neutrophils % (3-7) % Lymphocytes % (Manual) (25-45) % Monocytes % (Manual) (2-11) % Eosinophils % (Manual) (2-4) % Basophils % (Manual) (0-1) % Neutrophils # (Manual) (3467-4998) /uL Nucleated RBCs ( - 0) #/Diff Plt Morphology Comment RBC Morphology Polychromasia Hypochromasia Poikilocytosis Anisocytosis Microcytosis Tear Drop Cells Ovalocytes Smear Path Review Percent Retic (1.06-2.63) % Haptoglobin (43-212) mg/dL PT (10.1-12.7) SECONDS INR (0.9-1.3) APTT (26.4-36.2) SECONDS Sodium (137-145) mmol/L Potassium (3.4-5.1) mmol/L Chloride (98-107) mmol/L Carbon Dioxide (22-32) mmol/L BUN (7-17) mg/dL Creatinine (0.52-1.04) mg/dL Estimated GFR (>60) mL/min BUN/Creatinine Ratio (6-22) Glucose (70-100) mg/dL Lactate (0.7-2.1) mmol/L Calcium (8.4-10.2) mg/dL Magnesium (1.6-2.3) mg/dL Iron (37-170) ug/dL TIBC (265-497) ug/dL % Saturation (15-50) % Transferrin (206-381) mg/dL Ferritin (11.1-264) ng/mL Total Bilirubin (0.2-1.3) mg/dL Conjugated Bilirubin (0.0-0.3) md/dL Unconjugated Bilirubin (0.0-1.1) mg/dL AST (14-36) IU/L ALT (9-52) IU/L Alkaline Phosphatase (38-126) U/L Lactate Dehydrogenase (313-618) U/L Total Creatine Kinase 153 H (30-135) U/L CK-MB (CK-2) < 0.22 (<2.37) ng/mL CK-MB (CK-2) Rel Index 0.1 L (1.5-5.0) % Troponin I < 0.012 (0.01-0.034) ng/mL Total Protein (6.3-8.2) g/dL Albumin (3.5-5.0) g/dL Globulin (1.7-4.1) g/dL Albumin/Globulin Ratio (1.0-2.8) Lipase (23-300) U/L Vitamin B12 (239-931) pg/mL Folate (2.76-20.0) ng/mL Procalcitonin (<0.5) ng/mL Urine Color Urine Appearance Urine pH (4.5-8.0) Ur Specific Filer (1.000-1.035) Urine Protein (Negative) Urine Glucose (UA) (Negative) g/dL Urine Ketones (NEGATIVE) Urine Occult Blood (Negative) Urine Nitrate (Negative) Urine Bilirubin (NEGATIVE) Urine Urobilinogen (0.2) E.U./dL Ur Leukocyte Esterase (NEGATIVE) Urine RBC None seen (0-5/HPF) Urine WBC 1-5/hpf (0-5/HPF) Ur Squamous Epith Cells 0-1 /hpf Urine Bacteria Few (2-10) H (None) Hyaline Casts 1-5/lpf (None) Urine Mucus 1+ H (Negative) Ur Culture Indicated? Cult not indicated Influenza A & B (PCR) (Negative) Blood Type A Positive Antibody Screen Negative Crossmatch See Detail 11/13/18 11/13/18 11/13/18 Range/Units 20:30 20:30 20:30 WBC (4.5-11.0) X10^3/uL RBC (4.0-5.2) X10^6/uL Hgb (12.0-16.0) g/dL Hct (36-46) % MCV (80-100) fL MCH (26-34) PG MCHC (30-36) % RDW (11.6-14.8) % Plt Count (150-400) X10^3/uL Neut % (Auto) Lymph % (Auto) [place] % (Auto) Eos % (Auto) Baso % (Auto) Neut # (Auto) (0856-2088) /uL Lymph # (Auto) [place] # (Auto) Eos # (Auto) (0-450) /uL Baso # (Auto) Total Counted Seg Neutrophils % (38-70) % Band Neutrophils % (3-7) % Lymphocytes % (Manual) (25-45) % Monocytes % (Manual) (2-11) % Eosinophils % (Manual) (2-4) % Basophils % (Manual) (0-1) % Neutrophils # (Manual) (6344-6278) /uL Nucleated RBCs ( - 0) #/Diff Plt Morphology Comment RBC Morphology Polychromasia Hypochromasia Poikilocytosis Anisocytosis Microcytosis Tear Drop Cells Ovalocytes Smear Path Review Percent Retic (1.06-2.63) % Haptoglobin (43-212) mg/dL PT (10.1-12.7) SECONDS INR (0.9-1.3) APTT (26.4-36.2) SECONDS Sodium (137-145) mmol/L Potassium (3.4-5.1) mmol/L Chloride (98-107) mmol/L Carbon Dioxide (22-32) mmol/L BUN (7-17) mg/dL Creatinine (0.52-1.04) mg/dL Estimated GFR (>60) mL/min BUN/Creatinine Ratio (6-22) Glucose (70-100) mg/dL Lactate (0.7-2.1) mmol/L Calcium (8.4-10.2) mg/dL Magnesium (1.6-2.3) mg/dL Iron (37-170) ug/dL TIBC (265-497) ug/dL % Saturation (15-50) % Transferrin (206-381) mg/dL Ferritin 9.3 L (11.1-264) ng/mL Total Bilirubin 1.2 (0.2-1.3) mg/dL Conjugated Bilirubin 0.0 (0.0-0.3) md/dL Unconjugated Bilirubin 1.0 (0.0-1.1) mg/dL AST 50 H (14-36) IU/L ALT 33 (9-52) IU/L Alkaline Phosphatase 52 (38-126) U/L Lactate Dehydrogenase 737 H (313-618) U/L Total Creatine Kinase (30-135) U/L CK-MB (CK-2) (<2.37) ng/mL CK-MB (CK-2) Rel Index (1.5-5.0) % Troponin I (0.01-0.034) ng/mL Total Protein 6.7 (6.3-8.2) g/dL Albumin 3.9 (3.5-5.0) g/dL Globulin 2.8 (1.7-4.1) g/dL Albumin/Globulin Ratio 1.4 (1.0-2.8) Lipase (23-300) U/L Vitamin B12 (239-931) pg/mL Folate (2.76-20.0) ng/mL Procalcitonin (<0.5) ng/mL Urine Color Urine Appearance Urine pH (4.5-8.0) Ur Specific Filer (1.000-1.035) Urine Protein (Negative) Urine Glucose (UA) (Negative) g/dL Urine Ketones (NEGATIVE) Urine Occult Blood (Negative) Urine Nitrate (Negative) Urine Bilirubin (NEGATIVE) Urine Urobilinogen (0.2) E.U./dL Ur Leukocyte Esterase (NEGATIVE) Urine RBC (0-5/HPF) Urine WBC (0-5/HPF) Ur Squamous Epith Cells Urine Bacteria (None) Hyaline Casts (None) Urine Mucus (Negative) Ur Culture Indicated? Influenza A & B (PCR) (Negative) Blood Type Antibody Screen Crossmatch 11/13/18 11/13/18 11/13/18 Range/Units 20:30 20:38 20:38 WBC 10.8 (4.5-11.0) X10^3/uL RBC 3.48 L (4.0-5.2) X10^6/uL Hgb 7.0 L (12.0-16.0) g/dL Hct 22.8 L (36-46) % MCV 65.4 L D (80-100) fL MCH 20.2 L (26-34) PG MCHC 30.9 D (30-36) % RDW 33.8 H (11.6-14.8) % Plt Count 344 (150-400) X10^3/uL Neut % (Auto) Lymph % (Auto) [place] % (Auto) Eos % (Auto) Baso % (Auto) Neut # (Auto) (1004-6374) /uL Lymph # (Auto) [place] # (Auto) Eos # (Auto) (0-450) /uL Baso # (Auto) Total Counted 100 Seg Neutrophils % 65.0 (38-70) % Band Neutrophils % 2.0 L (3-7) % Lymphocytes % (Manual) 10.0 L (25-45) % Monocytes % (Manual) 18.0 H (2-11) % Eosinophils % (Manual) 5.0 H (2-4) % Basophils % (Manual) 0.0 (0-1) % Neutrophils # (Manual) 7236 H (4341-6542) /uL Nucleated RBCs ( - 0) #/Diff Plt Morphology Comment RBC Morphology Not Reportable Polychromasia Hypochromasia Poikilocytosis 3+ H Anisocytosis 3+ H Microcytosis 3+ H Tear Drop Cells Ovalocytes Smear Path Review Percent Retic 2.2 (1.06-2.63) % Haptoglobin 185 (43-212) mg/dL PT (10.1-12.7) SECONDS INR (0.9-1.3) APTT (26.4-36.2) SECONDS Sodium (137-145) mmol/L Potassium (3.4-5.1) mmol/L Chloride (98-107) mmol/L Carbon Dioxide (22-32) mmol/L BUN (7-17) mg/dL Creatinine (0.52-1.04) mg/dL Estimated GFR (>60) mL/min BUN/Creatinine Ratio (6-22) Glucose (70-100) mg/dL Lactate (0.7-2.1) mmol/L Calcium (8.4-10.2) mg/dL Magnesium (1.6-2.3) mg/dL Iron (37-170) ug/dL TIBC (265-497) ug/dL % Saturation (15-50) % Transferrin (206-381) mg/dL Ferritin (11.1-264) ng/mL Total Bilirubin (0.2-1.3) mg/dL Conjugated Bilirubin (0.0-0.3) md/dL Unconjugated Bilirubin (0.0-1.1) mg/dL AST (14-36) IU/L ALT (9-52) IU/L Alkaline Phosphatase (38-126) U/L Lactate Dehydrogenase (313-618) U/L Total Creatine Kinase (30-135) U/L CK-MB (CK-2) (<2.37) ng/mL CK-MB (CK-2) Rel Index (1.5-5.0) % Troponin I (0.01-0.034) ng/mL Total Protein (6.3-8.2) g/dL Albumin (3.5-5.0) g/dL Globulin (1.7-4.1) g/dL Albumin/Globulin Ratio (1.0-2.8) Lipase (23-300) U/L Vitamin B12 (239-931) pg/mL Folate (2.76-20.0) ng/mL Procalcitonin (<0.5) ng/mL Urine Color Urine Appearance Urine pH (4.5-8.0) Ur Specific [place]iler (1.000-1.035) Urine Protein (Negative) Urine Glucose (UA) (Negative) g/dL Urine Ketones (NEGATIVE) Urine Occult Blood (Negative) Urine Nitrate (Negative) Urine Bilirubin (NEGATIVE) Urine Urobilinogen (0.2) E.U./dL Ur Leukocyte Esterase (NEGATIVE) Urine RBC (0-5/HPF) Urine WBC (0-5/HPF) Ur Squamous Epith Cells Urine Bacteria (None) Hyaline Casts (None) Urine Mucus (Negative) Ur Culture Indicated? Influenza A & B (PCR) (Negative) Blood Type Antibody Screen Crossmatch 11/13/18 11/13/18 11/14/18 Range/Units 20:38 20:38 00:27 WBC (4.5-11.0) X10^3/uL RBC (4.0-5.2) X10^6/uL Hgb (12.0-16.0) g/dL Hct (36-46) % MCV (80-100) fL MCH (26-34) PG MCHC (30-36) % RDW (11.6-14.8) % Plt Count (150-400) X10^3/uL Neut % (Auto) Lymph % (Auto) [place] % (Auto) Eos % (Auto) Baso % (Auto) Neut # (Auto) (5727-2689) /uL Lymph # (Auto) [place] # (Auto) Eos # (Auto) (0-450) /uL Baso # (Auto) Total Counted Seg Neutrophils % (38-70) % Band Neutrophils % (3-7) % Lymphocytes % (Manual) (25-45) % Monocytes % (Manual) (2-11) % Eosinophils % (Manual) (2-4) % Basophils % (Manual) (0-1) % Neutrophils # (Manual) (9400-6762) /uL Nucleated RBCs ( - 0) #/Diff Plt Morphology Comment RBC Morphology Polychromasia Hypochromasia Poikilocytosis Anisocytosis Microcytosis Tear Drop Cells Ovalocytes Smear Path Review Percent Retic (1.06-2.63) % Haptoglobin (43-212) mg/dL PT (10.1-12.7) SECONDS INR (0.9-1.3) APTT (26.4-36.2) SECONDS Sodium (137-145) mmol/L Potassium (3.4-5.1) mmol/L Chloride (98-107) mmol/L Carbon Dioxide (22-32) mmol/L BUN (7-17) mg/dL Creatinine (0.52-1.04) mg/dL Estimated GFR (>60) mL/min BUN/Creatinine Ratio (6-22) Glucose (70-100) mg/dL Lactate (0.7-2.1) mmol/L Calcium (8.4-10.2) mg/dL Magnesium (1.6-2.3) mg/dL Iron 70 (37-170) ug/dL TIBC 379 (265-497) ug/dL % Saturation 18 (15-50) % Transferrin 381 (206-381) mg/dL Ferritin (11.1-264) ng/mL Total Bilirubin (0.2-1.3) mg/dL Conjugated Bilirubin (0.0-0.3) md/dL Unconjugated Bilirubin (0.0-1.1) mg/dL AST (14-36) IU/L ALT (9-52) IU/L Alkaline Phosphatase (38-126) U/L Lactate Dehydrogenase (313-618) U/L Total Creatine Kinase 190 H (30-135) U/L CK-MB (CK-2) 0.60 D (<2.37) ng/mL CK-MB (CK-2) Rel Index 0.3 L (1.5-5.0) % Troponin I < 0.012 (0.01-0.034) ng/mL Total Protein (6.3-8.2) g/dL Albumin (3.5-5.0) g/dL Globulin (1.7-4.1) g/dL Albumin/Globulin Ratio (1.0-2.8) Lipase (23-300) U/L Vitamin B12 617 (239-931) pg/mL Folate 19.6 (2.76-20.0) ng/mL Procalcitonin (<0.5) ng/mL Urine Color Urine Appearance Urine pH (4.5-8.0) Ur Specific [place]iler (1.000-1.035) Urine Protein (Negative) Urine Glucose (UA) (Negative) g/dL Urine Ketones (NEGATIVE) Urine Occult Blood (Negative) Urine Nitrate (Negative) Urine Bilirubin (NEGATIVE) Urine Urobilinogen (0.2) E.U./dL Ur Leukocyte Esterase (NEGATIVE) Urine RBC (0-5/HPF) Urine WBC (0-5/HPF) Ur Squamous Epith Cells Urine Bacteria (None) Hyaline Casts (None) Urine Mucus (Negative) Ur Culture Indicated? Influenza A & B (PCR) (Negative) Blood Type Antibody Screen Crossmatch 11/14/18 11/14/18 11/14/18 Range/Units 00:40 06:20 06:20 WBC 10.5 (4.5-11.0) X10^3/uL RBC 3.66 L (4.0-5.2) X10^6/uL Hgb 7.4 L (12.0-16.0) g/dL Hct 24.0 L (36-46) % MCV 65.6 L (80-100) fL MCH 20.2 L (26-34) PG MCHC 30.9 (30-36) % RDW 32.7 H (11.6-14.8) % Plt Count 341 (150-400) X10^3/uL Neut % (Auto) 74.0 Lymph % (Auto) 11.8 L [place] % (Auto) 12.6 Eos % (Auto) 0.6 L Baso % (Auto) 1.0 Neut # (Auto) 7800 H (9172-4450) /uL Lymph # (Auto) 1200 [place] # (Auto) 1300 H Eos # (Auto) 100 (0-450) /uL Baso # (Auto) 100 Total Counted Seg Neutrophils % (38-70) % Band Neutrophils % (3-7) % Lymphocytes % (Manual) (25-45) % Monocytes % (Manual) (2-11) % Eosinophils % (Manual) (2-4) % Basophils % (Manual) (0-1) % Neutrophils # (Manual) (6999-0098) /uL Nucleated RBCs ( - 0) #/Diff Plt Morphology Comment RBC Morphology See below Polychromasia 1+ H Hypochromasia 3+ H Poikilocytosis 2+ H Anisocytosis 3+ H Microcytosis 3+ H Tear Drop Cells Ovalocytes Smear Path Review Percent Retic (1.06-2.63) % Haptoglobin (43-212) mg/dL PT (10.1-12.7) SECONDS INR (0.9-1.3) APTT (26.4-36.2) SECONDS Sodium 133 L (137-145) mmol/L Potassium 3.4 (3.4-5.1) mmol/L Chloride 97 L (98-107) mmol/L Carbon Dioxide 25 (22-32) mmol/L BUN 7 (7-17) mg/dL Creatinine 0.50 L (0.52-1.04) mg/dL Estimated GFR > 60.0 (>60) mL/min BUN/Creatinine Ratio 14.0 (6-22) Glucose 91 (70-100) mg/dL Lactate (0.7-2.1) mmol/L Calcium 8.1 L (8.4-10.2) mg/dL Magnesium 2.0 (1.6-2.3) mg/dL Iron (37-170) ug/dL TIBC (265-497) ug/dL % Saturation (15-50) % Transferrin (206-381) mg/dL Ferritin (11.1-264) ng/mL Total Bilirubin (0.2-1.3) mg/dL Conjugated Bilirubin (0.0-0.3) md/dL Unconjugated Bilirubin (0.0-1.1) mg/dL AST (14-36) IU/L ALT (9-52) IU/L Alkaline Phosphatase (38-126) U/L Lactate Dehydrogenase (313-618) U/L Total Creatine Kinase (30-135) U/L CK-MB (CK-2) (<2.37) ng/mL CK-MB (CK-2) Rel Index (1.5-5.0) % Troponin I (0.01-0.034) ng/mL Total Protein (6.3-8.2) g/dL Albumin (3.5-5.0) g/dL Globulin (1.7-4.1) g/dL Albumin/Globulin Ratio (1.0-2.8) Lipase (23-300) U/L Vitamin B12 (239-931) pg/mL Folate (2.76-20.0) ng/mL Procalcitonin (<0.5) ng/mL Urine Color Yellow Urine Appearance Clear Urine pH 6.0 (4.5-8.0) Ur Specific [place]iler <=1.005 (1.000-1.035) Urine Protein Negative (Negative) Urine Glucose (UA) Negative (Negative) g/dL Urine Ketones Negative (NEGATIVE) Urine Occult Blood Negative (Negative) Urine Nitrate Negative (Negative) Urine Bilirubin Negative (NEGATIVE) Urine Urobilinogen 1.0 (0.2) E.U./dL Ur Leukocyte Esterase Negative (NEGATIVE) Urine RBC None seen (0-5/HPF) Urine WBC None seen (0-5/HPF) Ur Squamous Epith Cells 0-1 /hpf Urine Bacteria Few (2-10) H (None) Hyaline Casts (None) Urine Mucus (Negative) Ur Culture Indicated? Cult not indicated Influenza A & B (PCR) (Negative) Blood Type Antibody Screen Crossmatch 11/15/18 11/15/18 11/15/18 Range/Units 05:45 05:45 05:45 WBC 9.5 (4.5-11.0) X10^3/uL RBC 3.60 L (4.0-5.2) X10^6/uL Hgb 7.2 L (12.0-16.0) g/dL Hct 24.2 L (36-46) % MCV 67.2 L (80-100) fL MCH 20.0 L (26-34) PG MCHC 29.8 L (30-36) % RDW 33.7 H (11.6-14.8) % Plt Count 313 (150-400) X10^3/uL Neut % (Auto) 66.2 Lymph % (Auto) 19.1 L [place] % (Auto) 13.0 Eos % (Auto) 0.7 L Baso % (Auto) 1.0 Neut # (Auto) 6300 (0877-6544) /uL Lymph # (Auto) 1800 [place] # (Auto) 1200 H Eos # (Auto) 100 (0-450) /uL Baso # (Auto) 100 Total Counted Seg Neutrophils % (38-70) % Band Neutrophils % (3-7) % Lymphocytes % (Manual) (25-45) % Monocytes % (Manual) (2-11) % Eosinophils % (Manual) (2-4) % Basophils % (Manual) (0-1) % Neutrophils # (Manual) (2399-7525) /uL Nucleated RBCs 1 H ( - 0) #/Diff Plt Morphology Comment RBC Morphology Not Reportable Polychromasia 2+ H Hypochromasia 2+ H Poikilocytosis Anisocytosis Microcytosis 3+ H Tear Drop Cells Ovalocytes Smear Path Review Percent Retic (1.06-2.63) % Haptoglobin (43-212) mg/dL PT (10.1-12.7) SECONDS INR (0.9-1.3) APTT (26.4-36.2) SECONDS Sodium 135 L (137-145) mmol/L Potassium 3.1 L (3.4-5.1) mmol/L Chloride 100 (98-107) mmol/L Carbon Dioxide 25 (22-32) mmol/L BUN 6 L (7-17) mg/dL Creatinine 0.50 L (0.52-1.04) mg/dL Estimated GFR > 60.0 (>60) mL/min BUN/Creatinine Ratio 12.0 (6-22) Glucose 100 (70-100) mg/dL Lactate (0.7-2.1) mmol/L Calcium 8.3 L (8.4-10.2) mg/dL Magnesium (1.6-2.3) mg/dL Iron (37-170) ug/dL TIBC (265-497) ug/dL % Saturation (15-50) % Transferrin (206-381) mg/dL Ferritin (11.1-264) ng/mL Total Bilirubin 0.6 (0.2-1.3) mg/dL Conjugated Bilirubin (0.0-0.3) md/dL Unconjugated Bilirubin (0.0-1.1) mg/dL AST 36 (14-36) IU/L ALT 35 (9-52) IU/L Alkaline Phosphatase 54 (38-126) U/L Lactate Dehydrogenase (313-618) U/L Total Creatine Kinase (30-135) U/L CK-MB (CK-2) (<2.37) ng/mL CK-MB (CK-2) Rel Index (1.5-5.0) % Troponin I (0.01-0.034) ng/mL Total Protein 6.5 (6.3-8.2) g/dL Albumin 3.8 (3.5-5.0) g/dL Globulin 2.7 (1.7-4.1) g/dL Albumin/Globulin Ratio 1.4 (1.0-2.8) Lipase (23-300) U/L Vitamin B12 (239-931) pg/mL Folate (2.76-20.0) ng/mL Procalcitonin 0.52 H (<0.5) ng/mL Urine Color Urine Appearance Urine pH (4.5-8.0) Ur Specific [place]iler (1.000-1.035) Urine Protein (Negative) Urine Glucose (UA) (Negative) g/dL Urine Ketones (NEGATIVE) Urine Occult Blood (Negative) Urine Nitrate (Negative) Urine Bilirubin (NEGATIVE) Urine Urobilinogen (0.2) E.U./dL Ur Leukocyte Esterase (NEGATIVE) Urine RBC (0-5/HPF) Urine WBC (0-5/HPF) Ur Squamous Epith Cells Urine Bacteria (None) Hyaline Casts (None) Urine Mucus (Negative) Ur Culture Indicated? Influenza A & B (PCR) (Negative) Blood Type Antibody Screen Crossmatch 11/15/18 11/16/1819 Range/Units 05:45 05:35 05:35 WBC 9.7 (4.5-11.0) X10^3/uL RBC 3.68 L (4.0-5.2) X10^6/uL Hgb 7.5 L (12.0-16.0) g/dL Hct 24.6 L (36-46) % MCV 67.0 L (80-100) fL MCH 20.3 L (26-34) PG MCHC 30.3 (30-36) % RDW 34.7 H (11.6-14.8) % Plt Count 348 (150-400) X10^3/uL Neut % (Auto) 75.0 Lymph % (Auto) 13.0 L [place] % (Auto) 9.4 Eos % (Auto) 1.7 L Baso % (Auto) 0.9 Neut # (Auto) 7300 H (1204-1333) /uL Lymph # (Auto) 1300 [place] # (Auto) 900 Eos # (Auto) 200 (0-450) /uL Baso # (Auto) 100 Total Counted Seg Neutrophils % (38-70) % Band Neutrophils % (3-7) % Lymphocytes % (Manual) (25-45) % Monocytes % (Manual) (2-11) % Eosinophils % (Manual) (2-4) % Basophils % (Manual) (0-1) % Neutrophils # (Manual) (3610-5988) /uL Nucleated RBCs ( - 0) #/Diff Plt Morphology Comment RBC Morphology See below Polychromasia 2+ H Hypochromasia 2+ H Poikilocytosis 1+ H Anisocytosis 3+ H Microcytosis 3+ H Tear Drop Cells Ovalocytes Smear Path Review Percent Retic (1.06-2.63) % Haptoglobin (43-212) mg/dL PT (10.1-12.7) SECONDS INR (0.9-1.3) APTT (26.4-36.2) SECONDS Sodium (137-145) mmol/L Potassium (3.4-5.1) mmol/L Chloride (98-107) mmol/L Carbon Dioxide (22-32) mmol/L BUN (7-17) mg/dL Creatinine (0.52-1.04) mg/dL Estimated GFR (>60) mL/min BUN/Creatinine Ratio (6-22) Glucose (70-100) mg/dL Lactate (0.7-2.1) mmol/L Calcium (8.4-10.2) mg/dL Magnesium 2.1 (1.6-2.3) mg/dL Iron (37-170) ug/dL TIBC (265-497) ug/dL % Saturation (15-50) % Transferrin (206-381) mg/dL Ferritin (11.1-264) ng/mL Total Bilirubin (0.2-1.3) mg/dL Conjugated Bilirubin (0.0-0.3) md/dL Unconjugated Bilirubin (0.0-1.1) mg/dL AST (14-36) IU/L ALT (9-52) IU/L Alkaline Phosphatase (38-126) U/L Lactate Dehydrogenase (313-618) U/L Total Creatine Kinase (30-135) U/L CK-MB (CK-2) (<2.37) ng/mL CK-MB (CK-2) Rel Index (1.5-5.0) % Troponin I (0.01-0.034) ng/mL Total Protein (6.3-8.2) g/dL Albumin (3.5-5.0) g/dL Globulin (1.7-4.1) g/dL Albumin/Globulin Ratio (1.0-2.8) Lipase (23-300) U/L Vitamin B12 (239-931) pg/mL Folate (2.76-20.0) ng/mL Procalcitonin 0.19 (<0.5) ng/mL Urine Color Urine Appearance Urine pH (4.5-8.0) Ur Specific [place]iler (1.000-1.035) Urine Protein (Negative) Urine Glucose (UA) (Negative) g/dL Urine Ketones (NEGATIVE) Urine Occult Blood (Negative) Urine Nitrate (Negative) Urine Bilirubin (NEGATIVE) Urine Urobilinogen (0.2) E.U./dL Ur Leukocyte Esterase (NEGATIVE) Urine RBC (0-5/HPF) Urine WBC (0-5/HPF) Ur Squamous Epith Cells Urine Bacteria (None) Hyaline Casts (None) Urine Mucus (Negative) Ur Culture Indicated? Influenza A & B (PCR) (Negative) Blood Type Antibody Screen Crossmatch 11/16/18 Range/Units 05:35 WBC (4.5-11.0) X10^3/uL RBC (4.0-5.2) X10^6/uL Hgb (12.0-16.0) g/dL Hct (36-46) % MCV (80-100) fL MCH (26-34) PG MCHC (30-36) % RDW (11.6-14.8) % Plt Count (150-400) X10^3/uL Neut % (Auto) Lymph % (Auto) [place] % (Auto) Eos % (Auto) Baso % (Auto) Neut # (Auto) (2780-9922) /uL Lymph # (Auto) [place] # (Auto) Eos # (Auto) (0-450) /uL Baso # (Auto) Total Counted Seg Neutrophils % (38-70) % Band Neutrophils % (3-7) % Lymphocytes % (Manual) (25-45) % Monocytes % (Manual) (2-11) % Eosinophils % (Manual) (2-4) % Basophils % (Manual) (0-1) % Neutrophils # (Manual) (0253-6181) /uL Nucleated RBCs ( - 0) #/Diff Plt Morphology Comment RBC Morphology Polychromasia Hypochromasia Poikilocytosis Anisocytosis Microcytosis Tear Drop Cells Ovalocytes Smear Path Review Percent Retic (1.06-2.63) % Haptoglobin (43-212) mg/dL PT (10.1-12.7) SECONDS INR (0.9-1.3) APTT (26.4-36.2) SECONDS Sodium 137 (137-145) mmol/L Potassium 3.9 (3.4-5.1) mmol/L Chloride 105 (98-107) mmol/L Carbon Dioxide 24 (22-32) mmol/L BUN 4 L (7-17) mg/dL Creatinine 0.40 L (0.52-1.04) mg/dL Estimated GFR > 60.0 (>60) mL/min BUN/Creatinine Ratio 10.0 (6-22) Glucose 96 (70-100) mg/dL Lactate (0.7-2.1) mmol/L Calcium 8.3 L (8.4-10.2) mg/dL Magnesium 1.9 (1.6-2.3) mg/dL Iron (37-170) ug/dL TIBC (265-497) ug/dL % Saturation (15-50) % Transferrin (206-381) mg/dL Ferritin (11.1-264) ng/mL Total Bilirubin 0.4 (0.2-1.3) mg/dL Conjugated Bilirubin (0.0-0.3) md/dL Unconjugated Bilirubin (0.0-1.1) mg/dL AST 48 H (14-36) IU/L ALT 34 (9-52) IU/L Alkaline Phosphatase 50 (38-126) U/L Lactate Dehydrogenase (313-618) U/L Total Creatine Kinase (30-135) U/L CK-MB (CK-2) (<2.37) ng/mL CK-MB (CK-2) Rel Index (1.5-5.0) % Troponin I (0.01-0.034) ng/mL Total Protein 6.1 L (6.3-8.2) g/dL Albumin 3.4 L (3.5-5.0) g/dL Globulin 2.7 (1.7-4.1) g/dL Albumin/Globulin Ratio 1.3 (1.0-2.8) Lipase (23-300) U/L Vitamin B12 (239-931) pg/mL Folate (2.76-20.0) ng/mL Procalcitonin (<0.5) ng/mL Urine Color Urine Appearance Urine pH (4.5-8.0) Ur Specific Filer (1.000-1.035) Urine Protein (Negative) Urine Glucose (UA) (Negative) g/dL Urine Ketones (NEGATIVE) Urine Occult Blood (Negative) Urine Nitrate (Negative) Urine Bilirubin (NEGATIVE) Urine Urobilinogen (0.2) E.U./dL Ur Leukocyte Esterase (NEGATIVE) Urine RBC (0-5/HPF) Urine WBC (0-5/HPF) Ur Squamous Epith Cells Urine Bacteria (None) Hyaline Casts (None) Urine Mucus (Negative) Ur Culture Indicated? Influenza A & B (PCR) (Negative) Blood Type Antibody Screen Crossmatch Point of Care Testing Stool Occult Blood Negative Urine Dip Bedside Urine Glucose Negative Bedside Urine Bilirubin - Negative Bedside Urine Ketone +/- 5 Urine Specific Filer 1.025 Bedside Urine Occult Blood - Negative Bedside Urine pH 5.5 Bedside Urine Protein + 30 Bedside Urine Urobilinogen +/- 1mg Bedside Urine Nitrite - Negative Bedside Urine Leukocytes - Negative Esterase Discharge Plan Departure Patient Disposition: Admitted As Inpatient Clinical Impression: Influenza Anemia Qualifiers: Anemia type: iron deficiency Iron deficiency anemia type: unspecified iron deficiency Qualified Code(s): D50.9 - Iron deficiency anemia, unspecified Discharge Date/Time: 11/13/18 15:50 Interventions: ED Discharge Assessment Last Done: 11/13/18 15:46 Admit Date/Time: 11/13/18 15:08 Admit Provider: Araceli Almendarez <Elba Levi DO - Last Filed: 11/17/18 02:44> Cosign ED Attending Cosignature Attestation: I was immediately available in the department for consultation, case was discus sed. This documentation has been reviewed and I agree with assessment and plan. Supervised by Elba Levi DO
[2018-11-13 20:59] LABS: Hematocrit 22.8 % (36-46); Mean Corpuscular HGB Conc 30.9 % (30-36); Mean Corpuscular Hemoglobin 20.2 PG (26-34); Mean Corpuscular Volume 65.4 fL (80-100); Platelet Count 344 X10^3/uL (150-400); Red Blood Cell Count 3.48 X10^6/uL (4.0-5.2); Red Cell Distribution Width 33.8 % (11.6-14.8); White Blood Cell Count 10.8 X10^3/uL (4.5-11.0)
[2018-11-13 21:06] LABS: Reticulocyte Count, Percent 2.2 % (1.06-2.63)
[2018-11-13 21:35] LABS: Neutrophils Absolute Manual 7236 /uL (3000-5900); Total Cells Counted 100
[2018-11-13 21:36] LABS: Anisocytosis 3+; HEMOLYSIS < 15 (0-50); Iron 70 ug/dL (37-170); Microcytosis 3+; Poikilocytosis 3+
[2018-11-13 21:47] LABS: Percent Iron Saturation 18 % (15-50); Total Iron Binding Capacity 379 ug/dL (265-497); Transferrin 381 mg/dL (206-381)
[2018-11-13 22:46] LABS: Folate 19.6 ng/mL (2.76-20.0); Vitamin B12 617 pg/mL (239-931)
--- NOTE | 2018-11-13 23:02 | P.HP_ITS ---
History of Present Illness Date Patient Seen: 11/13/18 Time Patient Seen: 23:02 Chief complaint: flu like symptoms,chest pressure Narrative: The patient is a 48-year-old female with PMH significant for iron deficiency anemia, tobacco dependence, migraines, and peptic ulcer disease. Patient presented to the ED out of concern for cough and dyspnea. Symptoms initially noted on 11/10/2018. Today she felt as if her throat was closing (this was relieved by a rescue albuterol from a friend). Associated symptoms include subjective fever (did not check temperature, no chills), nausea (no vomiting or diarrhea), dizziness and lightheadedness, RLE cramping, chest tightness, and generalized malaise. Patient describes chest pain as tight and cramping, localizes it to the circumference of the torso. No radiation to the neck, right or left shoulder, or extremities. Dyspnea is worsened with exertion. Denies palpitations, diaphoresis, hemoptysis, syncopal events, abdom inal pain, dysuria, urinary frequency, hematuria, melena or hematochezia. She does note abdominal bloating. Quickly achieves satiety and intolerant of large meals (chronic for patient). Denies new rash. Reports easy bruising, no new areas of eccymosis. Uses NSAIDs on occasion for pain. Initial lab work revealed WBC 11.6, RBC 2.79, HGB 4.3, HCT 15.5, MCV 55.3, MCH 15.3, MCHC 27.6, RDW 23.7, PLT 314 PT 12.4, INR 1.1, APTT 35 NA 132, K 3.6, CL 94, CA 9.4, CO2 27, BUN 11, CR 0.6, Lactate 0.9, PCT 2.49, INFLUENZA A positive CXR unremarkable for acute cardiopulmonary findings. 2 units of PRBCs ordered in ED for which patient currently undergoing a transfusion. PMH: Fe deficiency anemia, tobacco dependence, migraines, peptic ulcer disease PSH: Cervical fusion, gastric ulcer resection, adenoidectomy FHx: Mother () - heart disease Father () - heart disease, colon cancer Brother (alive) - testicular cancer Maternal GF () - diabetes Daughter (alive) - pulmonary stenosis SHx: Lifelong smoker, at least 20 years, 1 ppd. Currently smokes 1 pack per day. Patient does consume alcohol, 8 beers a week, lifelong (reports drinking 12 beers weekly at the most) . Lives w/ . Has 3 children. Patient History Medical History Smoker (Acute) Surgical History H/O cervical spine surgery (Acute) Hx of adenoidectomy (Acute) Social History household members: spouse Smoking Status: Current every day smoker alcohol intake: current Family & Social History Social History: household members Spouse Prior Living Arrangements Mobile home Safety & Behavioral: Feels Safe in Current Yes Environment Been Physically Hurt or No Threatened By a Person Suicidal Ideation Description None Tobacco & Substance use: Smoking Status Current every day smoker Smoking packs per day 1 alcohol intake Current alcohol intake frequency 8 beers weekly Substance Use Type Does not use Meds Home Medications Medication Instructions Recorded Confirmed Type [id number] 1 tab PO PRN PRN 11/13/18 11/13/18 History [Excedrin Extra Strength] camphor-eucalyptus oil-menthol 1 applic TOPICAL PRN PRN 11/13/18 11/13/18 History [Hubre Vaporub] guaifenesin [Mucinex] 600 mg PO Q12H 11/13/18 11/13/18 History ibuprofen 1 dose PO PRN PRN 11/13/18 11/13/18 History omeprazole 20 mg PO DAILY 11/13/18 11/13/18 History [id number] 1 cap PO BID 11/13/18 11/13/18 History [Huber DayQuil Cold-Flu Relief] Allergies Allergy/AdvReac Type Severity Reaction Status Date / Time sumatriptan Allergy Severe Anaphylaxis Verified 11/13/18 10:50 codeine Allergy Intermediate Hives Verified 11/13/18 10:50 dihydroergotamine Allergy Unknown Verified 11/13/18 10:50 Review of Systems Review of Systems All systems reviewed & are unremarkable except as noted in HPI and below Exam Vital Signs (past 8 hours): - 11/13/18 15:23 11/13/18 15:24 11/13/18 15:44 Temperature 99.0 F 99.6 F Pulse Rate 83 83 Respiratory Rate 25 H 26 H Blood Pressure 103/58 L 96/46 L Pulse Oximetry 95 11/13/18 16:26 11/13/18 18:15 11/13/18 18:59 Temperature 98.8 F 99.5 F 98.5 F Pulse Rate 74 78 73 Respiratory Rate 18 18 18 Blood Pressure 105/57 L 95/50 L 114/50 L Pulse Oximetry 93 11/13/18 19:15 11/13/18 21:19 Temperature 98.8 F 99.4 F Pulse Rate 71 71 Respiratory Rate 16 15 Blood Pressure 114/47 L 125/62 Pulse Oximetry 93 Oxygen Delivery Method Room Air Narrative Exam Narrative: Constitutional: NAD Neurologic: AOx3, no focal neurological deficits Head: NC, AT Eyes: PERRL, EOMI, no scleral icterus Ears: external ears normal, no otorrhea Nose: external nose normal, no rhinorrhea or epistaxis Throat: dry MM, oropharynx w/o exudate Neck: no masses, lymphadenopathy, or JVD Chest / Respiratory: equal chest rise, unlabored respiratory effort, diminished breath sounds bilaterally Nonproductive cough noted Heart / CV: S1S2, no murmur Abdomen / GI: firm, mildly distended, LLQ tenderness w/ deep palpation, potential hepatomegaly, + BS : no suprapubic tenderness, no CVA Peripheral / Vascular: warm to touch, Right DP 1+ and PT 2+ and left DP 2+ and PT 2+; no edema Musc: full ROM of upper and lower extremities, adequate muscle tone and bulk Skin: no ecchymosis or suspicious lesions Objective Labs Result Diagrams: 11/13/18 20:38 11/13/18 11:15 Labs: Laboratory Results - last 24 hr 11/13/18 11/13/18 11/13/18 11:15 11:15 11:15 WBC 11.6 H RBC 2.79 L Hgb 4.3 L* Hct 15.5 L* MCV 55.3 L MCH 15.3 L MCHC 27.6 L RDW 23.7 H Plt Count 314 Neut % (Auto) Not Reportable Lymph % (Auto) Not Reportable [place] % (Auto) Not Reportable Eos % (Auto) Not Reportable Baso % (Auto) Not Reportable Lymph # (Auto) Not Reportable [place] # (Auto) Not Reportable Baso # (Auto) Not Reportable Total Counted 100 Seg Neutrophils % 80.0 H Band Neutrophils % 6.0 Lymphocytes % (Manual) 4.0 L Monocytes % (Manual) 9.0 Eosinophils % (Manual) Basophils % (Manual) 1.0 Neutrophils # (Manual) 9976 H Plt Morphology Comment RBC Morphology See below Polychromasia 1+ H Hypochromasia 3+ H Poikilocytosis Anisocytosis 3+ H Microcytosis 3+ H Tear Drop Cells 1+ H Ovalocytes 2+ H Percent Retic PT 12.4 INR 1.1 APTT 35 Sodium Potassium Chloride Carbon Dioxide BUN Creatinine Estimated GFR BUN/Creatinine Ratio Glucose Lactate Calcium Iron TIBC % Saturation Transferrin Total Bilirubin AST ALT Alkaline Phosphatase Total Creatine Kinase CK-MB (CK-2) CK-MB (CK-2) Rel Index Troponin I Total Protein Albumin Globulin Albumin/Globulin Ratio Lipase Vitamin B12 Folate Procalcitonin 2.49 H Urine RBC Urine WBC Ur Squamous Epith Cells Urine Bacteria Hyaline Casts Urine Mucus Ur Culture Indicated? Influenza A & B (PCR) Blood Type Antibody Screen Crossmatch 11/13/18 11/13/18 11/13/18 11:15 11:15 11:15 WBC RBC Hgb Hct MCV MCH MCHC RDW Plt Count Neut % (Auto) Lymph % (Auto) [place] % (Auto) Eos % (Auto) Baso % (Auto) Lymph # (Auto) [place] # (Auto) Baso # (Auto) Total Counted Seg Neutrophils % Band Neutrophils % Lymphocytes % (Manual) Monocytes % (Manual) Eosinophils % (Manual) Basophils % (Manual) Neutrophils # (Manual) Plt Morphology Comment RBC Morphology Polychromasia Hypochromasia Poikilocytosis Anisocytosis Microcytosis Tear Drop Cells Ovalocytes Percent Retic PT INR APTT Sodium 132 L Potassium 3.6 Chloride 94 L Carbon Dioxide 27 BUN 11 Creatinine 0.60 Estimated GFR > 60.0 BUN/Creatinine Ratio 18.3 Glucose 112 H Lactate 0.9 Calcium 8.4 Iron TIBC % Saturation Transferrin Total Bilirubin 0.4 AST 38 H ALT 32 Alkaline Phosphatase 57 Total Creatine Kinase CK-MB (CK-2) CK-MB (CK-2) Rel Index Troponin I Total Protein 7.1 Albumin 4.2 Globulin 2.9 Albumin/Globulin Ratio 1.4 Lipase 129 Vitamin B12 Folate Procalcitonin Urine RBC Urine WBC Ur Squamous Epith Cells Urine Bacteria Hyaline Casts Urine Mucus Ur Culture Indicated? Influenza A & B (PCR) Positive, type a A Blood Type Antibody Screen Crossmatch 11/13/18 11/13/18 11/13/18 11:15 12:08 12:30 WBC RBC Hgb Hct MCV MCH MCHC RDW Plt Count Neut % (Auto) Lymph % (Auto) [place] % (Auto) Eos % (Auto) Baso % (Auto) Lymph # (Auto) [place] # (Auto) Baso # (Auto) Total Counted Seg Neutrophils % Band Neutrophils % Lymphocytes % (Manual) Monocytes % (Manual) Eosinophils % (Manual) Basophils % (Manual) Neutrophils # (Manual) Plt Morphology Comment RBC Morphology Polychromasia Hypochromasia Poikilocytosis Anisocytosis Microcytosis Tear Drop Cells Ovalocytes Percent Retic PT INR APTT Sodium Potassium Chloride Carbon Dioxide BUN Creatinine Estimated GFR BUN/Creatinine Ratio Glucose Lactate Calcium Iron TIBC % Saturation Transferrin Total Bilirubin AST ALT Alkaline Phosphatase Total Creatine Kinase 153 H CK-MB (CK-2) < 0.22 CK-MB (CK-2) Rel Index 0.1 L Troponin I < 0.012 Total Protein Albumin Globulin Albumin/Globulin Ratio Lipase Vitamin B12 Folate Procalcitonin Urine RBC None seen Urine WBC 1-5/hpf Ur Squamous Epith Cells 0-1 /hpf Urine Bacteria Few (2-10) H Hyaline Casts 1-5/lpf Urine Mucus 1+ H Ur Culture Indicated? Cult not indicated Influenza A & B (PCR) Blood Type A Positive Antibody Screen Negative Crossmatch See Detail 11/13/18 11/13/18 11/13/18 20:38 20:38 20:38 WBC 10.8 RBC 3.48 L Hgb 7.0 L Hct 22.8 L MCV 65.4 L D MCH 20.2 L MCHC 30.9 D RDW 33.8 H Plt Count 344 Neut % (Auto) Lymph % (Auto) [place] % (Auto) Eos % (Auto) Baso % (Auto) Lymph # (Auto) [place] # (Auto) Baso # (Auto) Total Counted 100 Seg Neutrophils % 65.0 Band Neutrophils % 2.0 L Lymphocytes % (Manual) 10.0 L Monocytes % (Manual) 18.0 H Eosinophils % (Manual) 5.0 H Basophils % (Manual) 0.0 Neutrophils # (Manual) 7236 H Plt Morphology Comment RBC Morphology Not Reportable Polychromasia Hypochromasia Poikilocytosis 3+ H Anisocytosis 3+ H Microcytosis 3+ H Tear Drop Cells Ovalocytes Percent Retic 2.2 PT INR APTT Sodium Potassium Chloride Carbon Dioxide BUN Creatinine Estimated GFR BUN/Creatinine Ratio Glucose Lactate Calcium Iron 70 TIBC 379 % Saturation 18 Transferrin 381 Total Bilirubin AST ALT Alkaline Phosphatase Total Creatine Kinase CK-MB (CK-2) CK-MB (CK-2) Rel Index Troponin I Total Protein Albumin Globulin Albumin/Globulin Ratio Lipase Vitamin B12 Folate Procalcitonin Urine RBC Urine WBC Ur Squamous Epith Cells Urine Bacteria Hyaline Casts Urine Mucus Ur Culture Indicated? Influenza A & B (PCR) Blood Type Antibody Screen Crossmatch 11/13/18 20:38 WBC RBC Hgb Hct MCV MCH MCHC RDW Plt Count Neut % (Auto) Lymph % (Auto) [place] % (Auto) Eos % (Auto) Baso % (Auto) Lymph # (Auto) [place] # (Auto) Baso # (Auto) Total Counted Seg Neutrophils % Band Neutrophils % Lymphocytes % (Manual) Monocytes % (Manual) Eosinophils % (Manual) Basophils % (Manual) Neutrophils # (Manual) Plt Morphology Comment RBC Morphology Polychromasia Hypochromasia Poikilocytosis Anisocytosis Microcytosis Tear Drop Cells Ovalocytes Percent Retic PT INR APTT Sodium Potassium Chloride Carbon Dioxide BUN Creatinine Estimated GFR BUN/Creatinine Ratio Glucose Lactate Calcium Iron TIBC % Saturation Transferrin Total Bilirubin AST ALT Alkaline Phosphatase Total Creatine Kinase CK-MB (CK-2) CK-MB (CK-2) Rel Index Troponin I Total Protein Albumin Globulin Albumin/Globulin Ratio Lipase Vitamin B12 617 Folate 19.6 Procalcitonin Urine RBC Urine WBC Ur Squamous Epith Cells Urine Bacteria Hyaline Casts Urine Mucus Ur Culture Indicated? Influenza A & B (PCR) Blood Type Antibody Screen Crossmatch Assessment & Plan Assessment & Plan narrative: Anemia, acute, present on admission H/o iron deficiency, off iron supplements vs acute blood loss vs alternative causes autoimmune vs malignancy Initial Hgb 4.3 w/o overt symptoms of bleeding. Uses NSAIDs at home 2-4 tabs twice weekly. Guiac stool is negative. - receiving 2 units of PRBCs - repeat CBC (repeat results reviewed HGB 7) - iron studies, retic count, ferritin, B12 and folate to r/o iron deficiency anemia - LDH, haptoglobin, liver fx to r/o hemolytic anemia - No NSAIDs, would recommend stopping indefinitely Flu A positive, acute, present on admission - Started on Tamiflu Hypovolemia, acute, present on admission w/ borderline electrolytes - Gently IV hydration - Replete e-lyte deficiencies Elevated procalcitonin level, acute, present on admission Subjective fever. Afebrile states since presentation to the hospital.. Influenza A positive. CXR is not suggestive of pneumonia. Lactate WNL. No s/s of SIRS or sepsis. No significant cough (from baseline) with worsening purulence. - Repeat PCT in am, consider alternative causes elevation such as liver disease or malignancy - Blood Cx pending LLQ abdominal pain, acute, finding on exam w/ concurrent severe anemia and viral illness. FHx of colon cancer. - CT abdomen / pelvis w/wo contrast concern for acute GI pathology, liver disease, malignancy Moderate Malnutrition, chronic, present on admission BMI 17.3. Patient is not sure if there there has been weight loss. Appetite is fair. Currently acutely ill. 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
[2018-11-14] VITALS (7 sets, daily range): BP systolic 106–144; BP diastolic 50–90; PULSE 68–87; RESP 15–94; TEMP 36.8–38.7; O2SAT 92–94
--- NOTE | 2018-11-14 | DI.CT.S_ITS ---
PROCEDURE: CT ABDOMEN PELVIS W CON INDICATIONS: left lower abd pain, anemia x one week TECHNIQUE: After the administration of oral and intravenous contrast, 5 mm thick sections acquired from the diaphragms to the symphysis. 5 mm thick coronal and sagittal reformats were performed. For radiation dose reduction, the following was used: automated exposure control, adjustment of mA and/or kV according to patient size. COMPARISON: None. FINDINGS: Image quality: Excellent. ABDOMEN: Lung bases: Scattered, poorly defined nodular opacities are seen at the lung bases. Solid organs: Liver is normal in size and enhancement. Gallbladder demonstrates layering gallstones. Biliary system is non-dilated. Pancreas enhances normally. The spleen is enlarged measuring 14.5 cm craniocaudally. On the anterior aspect of the spleen, there is a splenic cyst seen that measures 8 mm, as on series 2 image 21. Incidental note is made of an accessory spleen along the hilum of the primary spleen. No adrenal nodules. Kidneys are normal in size and enhancement. Bilateral moderate hydronephrosis is seen, without eder hydroureter. A cause of obstruction is not observed. Peritoneum and bowel: Left upper quadrant postoperative changes are seen, likely related to gastric bypass. Stomach, small bowel, and colon loops are normal in caliber and wall thickness. No free air. Nodes and vessels: No retroperitoneal or mesenteric adenopathy. Aorta and inferior vena cava are normal in caliber. Miscellaneous: No ventral hernias. PELVIS: Genitourinary: Bladder wall thickness is normal. A small amount of free fluid can be seen within the pelvis, which is considered to be within physiologic limits. The uterus and ovaries demonstrate an unremarkable appearance for age. Miscellaneous: No inguinal hernias or adenopathy. Bones: No suspicious bony lesions. No vertebral body compression fractures. IMPRESSION: No imaging explanation is found for this patient's presenting history of left lower quadrant pain. No significant sigmoid abnormality is seen. Poorly defined, nodular opacities can be seen at the lung bases. In a patient of this age, differential diagnosis includes metastatic disease and infection. When clinically appropriate, a dedicated chest CT is recommended to evaluate for additional pulmonary nodules. Moderate bilateral hydronephrosis, without hydroureter. No cause of obstruction can be seen. Apparent gastric bypass changes are seen. Splenomegaly. A small amount of free fluid can be seen within the pelvis, which is considered to be within physiologic limits. Incidental note is made of: Splenic cyst Accessory spleen Dictated by: Jose Maria Alvarez M.D. on 11/14/2018 at 9:10 Approved by: Jose Maria Alvarez M.D. on 11/14/2018 at 9:18
[2018-11-14 00:16] LABS: Alanine Aminotransferase 33 IU/L (9-52); Albumin 3.9 g/dL (3.5-5.0); Albumin Globulin Ratio 1.4 (1.0-2.8); Alkaline Phosphatase 52 U/L (38-126); Aspartate Aminotransferase 50 IU/L (14-36); Bilirubin Total 1.2 mg/dL (0.2-1.3); Globulin 2.8 g/dL (1.7-4.1); HEMOLYSIS < 15 (0-50); Total Protein 6.7 g/dL (6.3-8.2)
[2018-11-14 00:28] LABS: Lactate Dehydrogenase 737 U/L (313-618)
[2018-11-14] MEDS: guaiFENesin ER 600 MG TAB PO (00:35)
--- NOTE | 2018-11-14 00:35 | PC.ADMIT ---
Admission Note: 1600- pt arrived to floor. blood infusing. pt on tele. PT uses call light. given snacks. and ordered dinner. Pt tolerating blood well. pt has been feverish and has chronic back pain. no change once blood started. Pt cooperative and compliant. Pt uses call light. Pt ambulates steady gait. Pt reports she is a smoker. flud shot ordered for the AM. on precautions and educated about these. discussed home meds. will continue to monitor.
[2018-11-14 00:49] LABS: Creatine Kinase 190 U/L (30-135)
[2018-11-14 00:57] LABS: RBC Urine None Seen (0-5/HPF); WBC Urine None Seen (0-5/HPF)
[2018-11-14 00:58] LABS: Appearance Urine UA CLEAR; Bilirubin Urine UA NEGATIVE (NEGATIVE); Color Urine UA YELLOW; Glucose Urine UA NEGATIVE (Negative); Ketones Urine UA NEGATIVE (NEGATIVE); Leukocyte Esterase Urine UA NEGATIVE (NEGATIVE); Nitrite Urine UA NEGATIVE (Negative); Occult Blood Urine UA NEGATIVE (Negative); Protein Urine UA NEGATIVE (Negative); Specific Gravity Urine UA <=1.005 (1.000-1.035)
[2018-11-14 01:02] LABS: Troponin I < 0.012 ng/mL (0.01-0.034)
[2018-11-14 01:04] LABS: CKMB % Relative Index 0.3 % (1.5-5.0)
[2018-11-14 01:16] LABS: Ferritin 9.3 ng/mL (11.1-264)
[2018-11-14] MEDS: OSELTAMIVIR 75 MG CAPSULE PO ×3 (01:22→21:30)
[2018-11-14] MEDS: CYCLOBENZAPRINE 5 MG TABLET PO (01:22)
[2018-11-14 01:31] LABS: Bacteria Urine Few (2-10); Squamous Epithelial Cell Urine 0-1 /HPF
[2018-11-14 01:32] LABS: Culture Indicated Urine Cult Not Indicated
[2018-11-14] MEDS: MORPHINE 5 MG/ML INJ 2 MG IV (01:55)
[2018-11-14] MEDS: SODIUM CHLORIDE 0.9% 1,000 ML 75 ML IV ×2 (01:55→16:12)
[2018-11-14 07:20] LABS: Add Manual Diff / Slide Review NO; Basophils Absolute Auto 100 /uL (0-100); Eosinophils Absolute Auto 100 /uL (0-450); Eosinophils Percent Auto 0.6 % (2-4); Hemoglobin 7.4 g/dL (12.0-16.0); Lymphocytes Absolute Auto 1200 /uL (1100-4500); Lymphocytes Percent Auto 11.8 % (25-40); Mean Corpuscular HGB Conc 30.9 % (30-36); Mean Corpuscular Hemoglobin 20.2 PG (26-34); Mean Corpuscular Volume 65.6 fL (80-100); Monocytes Absolute Auto 1300 /uL (0-900); Monocytes Percent Auto 12.6 % (3-14); Neutrophils Absolute Auto 7800 /uL (1500-7000); Platelet Count 341 X10^3/uL (150-400); Red Blood Cell Count 3.66 X10^6/uL (4.0-5.2); Red Cell Distribution Width 32.7 % (11.6-14.8); White Blood Cell Count 10.5 X10^3/uL (4.5-11.0)
[2018-11-14 07:26] LABS: Blood Urea Nitrogen 7 mg/dL (7-17); Calcium 8.1 mg/dL (8.4-10.2); Carbon Dioxide 25 mmol/L (22-32); Chloride 97 mmol/L (98-107); Estimated Glomerular Filt Rate > 60.0 mL/min (>60); Glucose 91 mg/dL (70-100); HEMOLYSIS < 15 (0-50); Potassium 3.4 mmol/L (3.4-5.1); Sodium 133 mmol/L (137-145)
[2018-11-14 08:10] LABS: Anisocytosis 3+; Microcytosis 3+
[2018-11-14 08:11] LABS: Polychromasia 1+
[2018-11-14 08:12] LABS: Hypochromasia 3+
[2018-11-14 08:13] LABS: Poikilocytosis 2+
[2018-11-14] MEDS: LIDOCAINE PATCH 1 EACH ADH..PATCH TOP (10:56)
[2018-11-14] MEDS: BENZONATATE 100 MG CAPSULE PO (10:56)
[2018-11-14] MEDS: guaiFENesin Solution 100 MG/5 ML UDC PO (13:26)
[2018-11-14] MEDS: INFLUENZA VACCINE 0.5 ML SYRINGE IM (13:27)
--- NOTE | 2018-11-14 14:59 | PC.NURSE ---
Day Shift- Uneventful shift-Pt NPO this AM, had approx 800mls of oral contrast without difficulty, went to CT at 0920 via wheelchair and back at 0950. Pt has persistent intermittent moist cough with clear thick sputum production. Tessalon Perles prn given at 1100 with no effect. PRN Robitussin liquid given at 1335 with some effect. Has diminished AE to bases and mid/upper lobe expiratory wheeze. O2 sat 93% on RA. No BM today, passing flatus. Remains on telemetry monitoring. NSR X2 per MOLECULAR SPECTROSCOPISTglass enamel mixer. Asymptomatic with ambulation OOB to BR.
--- NOTE | 2018-11-14 17:31 | PC.NURSE ---
Addendum entered by Jesika Zuniga R.N. 11/14/18 21:53: Uneventful evening. Denies discomfort. IVF continue as per orders. Tele NSR per ICU staff. Call light w/in reach, calls appropriately for needs. Continue w/plan of care. Original Note: Pt resting at intervals. Had cough, clear, sputum. SpO2 94%RA IVF infusing as per order w/o incidence. Call light w/in reach, Calls appropriately for requests.
--- NOTE | 2018-11-14 18:45 | PM.PN.1 ---
Subjective Date Patient Seen: 11/14/18 Interval history: Amor Crow 48-year-old female with a past medical history significant for iron deficiency anemia, tobacco dependence, migraines, and peptic ulcer disease who presented to the ED out of concern for cough and dyspnea found to have influenza A and severe iron deficiency anemia. The patient is sitting in bed comfortably. She has significant cough with cough paroxysms. She denies headache, shortness of breath, chest pain, abdominal pain, nausea, vomiting, fever, chills, dysuria, diarrhea constipation. She is voiding and eliminating without difficulty. She is ambulating without assistance. Exam Vital Signs (past 8 hours): - 11/14/18 12:55 11/14/18 16:15 Temperature 98.3 F 101.7 F H Pulse Rate 74 87 Respiratory Rate 20 94 H Blood Pressure 122/50 L 138/69 Pulse Oximetry 93 94 Oxygen Delivery Method Room Air Oxygen Flow Rate 0 Narrative Exam Narrative: General: Middle-aged thin cachetic female in no acute distress, appropriately interactive. HEENT: Normocephalic, atraumatic. External ears without defect. Pupils equal, round, and reactive to light. Anicteric sclerae, moist conjunctivae, and no lid lag. Poor dentition. Neck: Supple with full range of motion. No lymphadenopathy or thyromegaly. Cardiovascular: Regular rhythm and rate without murmurs, rubs, or gallops appreciated. Pulmonary: Diminished throughout but clear to auscultation bilaterally with few scattered wheeze. No rhonchi or rales. Normal respiratory effort with no use of accessory muscles. Abdomen: Soft, bowel sounds present, no tenderness to palpation, non-distended. No hepatomealy. Splenomegaly present. No masses appreciated. Extremities: No clubbing, cyanosis, or edema. Skin: Normal temperature, turgor, and texture; no rash, ulcers, or subcutaneous nodules appreciated. Numerous 1-2 cm healed circular scars over back posteriorly. Neurological: Cranial nerves grossly intact. Psychiatric: Normal mood and affect. Alert and oriented to person, place, and time. Objective Labs Result Diagrams: 11/14/18 06:20 11/14/18 06:20 Labs: Laboratory Results - last 24 hr 11/13/18 11/13/18 11/13/18 11:15 12:30 20:30 WBC RBC Hgb Hct MCV MCH MCHC RDW Plt Count Neut % (Auto) Lymph % (Auto) Alcorn % (Auto) Eos % (Auto) Baso % (Auto) Neut # (Auto) Lymph # (Auto) Alcorn # (Auto) Eos # (Auto) Baso # (Auto) Total Counted Seg Neutrophils % Band Neutrophils % Lymphocytes % (Manual) Monocytes % (Manual) Eosinophils % (Manual) Basophils % (Manual) Neutrophils # (Manual) RBC Morphology Polychromasia Hypochromasia Poikilocytosis Anisocytosis Microcytosis Smear Path Review Percent Retic Sodium Potassium Chloride Carbon Dioxide BUN Creatinine Estimated GFR BUN/Creatinine Ratio Glucose Calcium Magnesium Iron TIBC % Saturation Transferrin Ferritin Total Bilirubin 1.2 Conjugated Bilirubin 0.0 Unconjugated Bilirubin 1.0 AST 50 H ALT 33 Alkaline Phosphatase 52 Lactate Dehydrogenase Total Creatine Kinase CK-MB (CK-2) CK-MB (CK-2) Rel Index Troponin I Total Protein 6.7 Albumin 3.9 Globulin 2.8 Albumin/Globulin Ratio 1.4 Vitamin B12 Folate Urine Color Urine Appearance Urine pH Ur Specific Aylett Urine Protein Urine Glucose (UA) Urine Ketones Urine Occult Blood Urine Nitrate Urine Bilirubin Urine Urobilinogen Ur Leukocyte Esterase Urine RBC Urine WBC Ur Squamous Epith Cells Urine Bacteria Ur Culture Indicated? Blood Type A Positive Antibody Screen Negative Crossmatch See Detail 11/13/18 11/13/18 11/13/18 20:30 20:30 20:38 WBC 10.8 RBC 3.48 L Hgb 7.0 L Hct 22.8 L MCV 65.4 L D MCH 20.2 L MCHC 30.9 D RDW 33.8 H Plt Count 344 Neut % (Auto) Lymph % (Auto) Alcorn % (Auto) Eos % (Auto) Baso % (Auto) Neut # (Auto) Lymph # (Auto) Alcorn # (Auto) Eos # (Auto) Baso # (Auto) Total Counted 100 Seg Neutrophils % 65.0 Band Neutrophils % 2.0 L Lymphocytes % (Manual) 10.0 L Monocytes % (Manual) 18.0 H Eosinophils % (Manual) 5.0 H Basophils % (Manual) 0.0 Neutrophils # (Manual) 7236 H RBC Morphology Not Reportable Polychromasia Hypochromasia Poikilocytosis 3+ H Anisocytosis 3+ H Microcytosis 3+ H Smear Path Review Percent Retic Sodium Potassium Chloride Carbon Dioxide BUN Creatinine Estimated GFR BUN/Creatinine Ratio Glucose Calcium Magnesium Iron TIBC % Saturation Transferrin Ferritin 9.3 L Total Bilirubin Conjugated Bilirubin Unconjugated Bilirubin AST ALT Alkaline Phosphatase Lactate Dehydrogenase 737 H Total Creatine Kinase CK-MB (CK-2) CK-MB (CK-2) Rel Index Troponin I Total Protein Albumin Globulin Albumin/Globulin Ratio Vitamin B12 Folate Urine Color Urine Appearance Urine pH Ur Specific Aylett Urine Protein Urine Glucose (UA) Urine Ketones Urine Occult Blood Urine Nitrate Urine Bilirubin Urine Urobilinogen Ur Leukocyte Esterase Urine RBC Urine WBC Ur Squamous Epith Cells Urine Bacteria Ur Culture Indicated? Blood Type Antibody Screen Crossmatch 11/13/18 11/13/18 11/13/18 20:38 20:38 20:38 WBC RBC Hgb Hct MCV MCH MCHC RDW Plt Count Neut % (Auto) Lymph % (Auto) Alcorn % (Auto) Eos % (Auto) Baso % (Auto) Neut # (Auto) Lymph # (Auto) [place]corn # (Auto) Eos # (Auto) Baso # (Auto) Total Counted Seg Neutrophils % Band Neutrophils % Lymphocytes % (Manual) Monocytes % (Manual) Eosinophils % (Manual) Basophils % (Manual) Neutrophils # (Manual) RBC Morphology Polychromasia Hypochromasia Poikilocytosis Anisocytosis Microcytosis Smear Path Review Percent Retic 2.2 Sodium Potassium Chloride Carbon Dioxide BUN Creatinine Estimated GFR BUN/Creatinine Ratio Glucose Calcium Magnesium Iron 70 TIBC 379 % Saturation 18 Transferrin 381 Ferritin Total Bilirubin Conjugated Bilirubin Unconjugated Bilirubin AST ALT Alkaline Phosphatase Lactate Dehydrogenase Total Creatine Kinase CK-MB (CK-2) CK-MB (CK-2) Rel Index Troponin I Total Protein Albumin Globulin Albumin/Globulin Ratio Vitamin B12 617 Folate 19.6 Urine Color Urine Appearance Urine pH Ur Specific Aylett Urine Protein Urine Glucose (UA) Urine Ketones Urine Occult Blood Urine Nitrate Urine Bilirubin Urine Urobilinogen Ur Leukocyte Esterase Urine RBC Urine WBC Ur Squamous Epith Cells Urine Bacteria Ur Culture Indicated? Blood Type Antibody Screen Crossmatch 11/14/18 11/14/18 11/14/18 00:27 00:40 06:20 WBC 10.5 RBC 3.66 L Hgb 7.4 L Hct 24.0 L MCV 65.6 L MCH 20.2 L MCHC 30.9 RDW 32.7 H Plt Count 341 Neut % (Auto) 74.0 Lymph % (Auto) 11.8 L Alcorn % (Auto) 12.6 Eos % (Auto) 0.6 L Baso % (Auto) 1.0 Neut # (Auto) 7800 H Lymph # (Auto) 1200 Alcorn # (Auto) 1300 H Eos # (Auto) 100 Baso # (Auto) 100 Total Counted Seg Neutrophils % Band Neutrophils % Lymphocytes % (Manual) Monocytes % (Manual) Eosinophils % (Manual) Basophils % (Manual) Neutrophils # (Manual) RBC Morphology See below Polychromasia 1+ H Hypochromasia 3+ H Poikilocytosis 2+ H Anisocytosis 3+ H Microcytosis 3+ H Smear Path Review Percent Retic Sodium Potassium Chloride Carbon Dioxide BUN Creatinine Estimated GFR BUN/Creatinine Ratio Glucose Calcium Magnesium Iron TIBC % Saturation Transferrin Ferritin Total Bilirubin Conjugated Bilirubin Unconjugated Bilirubin AST ALT Alkaline Phosphatase Lactate Dehydrogenase Total Creatine Kinase 190 H CK-MB (CK-2) 0.60 D CK-MB (CK-2) Rel Index 0.3 L Troponin I < 0.012 Total Protein Albumin Globulin Albumin/Globulin Ratio Vitamin B12 Folate Urine Color Yellow Urine Appearance Clear Urine pH 6.0 Ur Specific Aylett <=1.005 Urine Protein Negative Urine Glucose (UA) Negative Urine Ketones Negative Urine Occult Blood Negative Urine Nitrate Negative Urine Bilirubin Negative Urine Urobilinogen 1.0 Ur Leukocyte Esterase Negative Urine RBC None seen Urine WBC None seen Ur Squamous Epith Cells 0-1 /hpf Urine Bacteria Few (2-10) H Ur Culture Indicated? Cult not indicated Blood Type Antibody Screen Crossmatch 11/14/18 06:20 WBC RBC Hgb Hct MCV MCH MCHC RDW Plt Count Neut % (Auto) Lymph % (Auto) Alcorn % (Auto) Eos % (Auto) Baso % (Auto) Neut # (Auto) Lymph # (Auto) Alcorn # (Auto) Eos # (Auto) Baso # (Auto) Total Counted Seg Neutrophils % Band Neutrophils % Lymphocytes % (Manual) Monocytes % (Manual) Eosinophils % (Manual) Basophils % (Manual) Neutrophils # (Manual) RBC Morphology Polychromasia Hypochromasia Poikilocytosis Anisocytosis Microcytosis Smear Path Review Percent Retic Sodium 133 L Potassium 3.4 Chloride 97 L Carbon Dioxide 25 BUN 7 Creatinine 0.50 L Estimated GFR > 60.0 BUN/Creatinine Ratio 14.0 Glucose 91 Calcium 8.1 L Magnesium 2.0 Iron TIBC % Saturation Transferrin Ferritin Total Bilirubin Conjugated Bilirubin Unconjugated Bilirubin AST ALT Alkaline Phosphatase Lactate Dehydrogenase Total Creatine Kinase CK-MB (CK-2) CK-MB (CK-2) Rel Index Troponin I Total Protein Albumin Globulin Albumin/Globulin Ratio Vitamin B12 Folate Urine Color Urine Appearance Urine pH Ur Specific Aylett Urine Protein Urine Glucose (UA) Urine Ketones Urine Occult Blood Urine Nitrate Urine Bilirubin Urine Urobilinogen Ur Leukocyte Esterase Urine RBC Urine WBC Ur Squamous Epith Cells Urine Bacteria Ur Culture Indicated? Blood Type Antibody Screen Crossmatch Assessment & Plan Assessment & Plan narrative: Amor Crow 48-year-old female with a past medical history significant for iron deficiency anemia, tobacco dependence, migraines, and peptic ulcer disease who presented to the ED out of concern for cough and dyspnea found to have influenza A and severe iron deficiency anemia. 1. Anemia, likely chronic as patient was asymptomatic, present on admission. Active -Likely multifactorial and due to iron deficiency, off iron supplements (years), malnutrtion, acute blood loss for PUD. Also may be due to alternative causes such as autoimmune or malignancy. -Initial Hgb 4.3 without overt bleeding (melena, hematochezia, hemoptysis, or hematuria). Uses NSAIDs at home 2-4 tabs twice weekly. Guiac stool is negative. -Iron panel and ferritin demonstrated iron deficiency anemia. Reticulocyte count, B12 and folate normal. -LDH, haptoglobin, liver fx to r/o hemolytic anemia. -No NSAIDs and would recommend stopping indefinitely. -Received 2 units of PRBCs. -Repeat CBC daily. 2. Acute Influenza A URI, present on admission. Active. -Continue Tamiflu. -Continue symptom management with mucinex 1200 mg twice daily and tessalon perles 100 three times daily as needed for cough. Added sudafed 30 mg for nasal congestion or rhinitis and cepacol lozenges for cough. -Continue IV fluids as below. 3. Acute elevated procalcitonin level, present on admission. Active. -Febrile today 101.7. Influenza A positive. -Chest xray did not demonstrate any acute cardiopulmonary process. Lactate WNL. No s/s of SIRS or sepsis. -No significant cough (from baseline) with worsening purulence. -Trend PCT. Consider alternative causes of elevation such as liver disease or malignancy. -Blood Culture x2, pending. 4. Acute hypovolemia, present on admission. Active. -Borderline electrolytes. -Continue IV hydration -Replete electrolyte deficiencies. 5. Possible LLQ abdominal pain, present on admission. -Present on exam during admission. No pain today. In setting of concurrent severe anemia and viral illness. FHx of colon cancer. -Ordered CT abdomen and pelvis w/wo contrast due to concern for acute GI pathology, liver disease, malignancy, pending. 6. Moderate protein malnutrition, chronic, present on admission. Presumed stable. -BMI 17.3. Patient denies weight loss. Appetite is fair. Currently acutely ill. -Consider checking for zinc and octavio deficiencies 7. History of peptic ulcer disease, possibly present on admission. -Continue home PPI. -No NSAIDs. Disposition: Likely to discharge in 1-2 days depending on anemia and infectious workup and improvement in influenza infection. Quality VTE Deep Vein Thrombosis/Pulmonary Embolism Present on Admission: No
[2018-11-14] MEDS: guaiFENesin ER 600 MG TAB 1200 MG PO (21:35)
[2018-11-15] VITALS (12 sets, daily range): BP systolic 94–117; BP diastolic 49–76; PULSE 66–81; RESP 16–21; TEMP 36.6–37.2; O2SAT 90–100
--- NOTE | 2018-11-15 | DI.CT.S_ITS ---
PROCEDURE: CT CHEST WO CON INDICATIONS: Pulmonary radiodensities, in the setting of a reported flulike syndrome with shortness of breath and cough. CT scan of the abdomen/pelvis 11/14/18 identified patchy areas of lung this radiodensity. TECHNIQUE: Noncontrast 2.0-2.5 mm thick sections acquired from the pulmonary apices to the posterior costophrenic angles. 7 mm thick coronal and sagittal MIP reformats were then acquired. A low radiation dose technique was utilized. COMPARISON: [facility], CR, XR CHEST 1V, 11/13/2018, 11:11. [facility], CT, CT ABDOMEN PELVIS W CON, 11/14/2018, 9:08. FINDINGS: Image quality: Diagnostic, given the low radiation dose technique. Lungs and pleura: Within the lung parenchyma bilaterally there are patchy areas of alveolar infiltration, with a pattern most consistent with patchy bilateral pneumonia involving the upper and lower lungs. No solid mass lesion is found, no pleural effusion is seen. There is no mediastinal or hilar adenopathy suspected. Mediastinum: Heart size is normal. No pericardial effusion. No mediastinal adenopathy by size criteria. Thoracic aorta and central pulmonary arteries are normal in size. Esophagus is normal in caliber. No hiatal hernia. Bones and chest wall: No suspicious bony lesions. No vertebral body compression fractures. No axillary or supraclavicular adenopathy by size criteria. Thyroid gland is not well-seen by this noncontrast technique but appears normal where well visualized.. Abdomen: Visualized upper abdomen solid organs and bowel loops appear normal in the absence of contrast. IMPRESSION: Malignant appearing pulmonary masses are not seen. Rather, there is a patchy pattern of alveolar consolidation within the upper and lower lungs. This likely is infectious in etiology given the clinical history of a flulike syndrome with shortness of breath and cough. Close clinical followup is recommended and followup chest plain films in one week may be warranted unless clinically indicated sooner. Dictated by: Ganga Lawrence M.D. on 11/15/2018 at 12:17 Approved by: Ganga Lawrence M.D. on 11/15/2018 at 12:20
[2018-11-15] MEDS: BENZONATATE 100 MG CAPSULE PO ×3 (01:01→20:56)
[2018-11-15] MEDS: CYCLOBENZAPRINE 5 MG TABLET PO ×3 (01:19→16:00)
--- NOTE | 2018-11-15 01:20 | PC.NURSE ---
Addendum entered by Krystin Em R.N. 11/15/18 07:37: IV morphine given with good effect. Original Note: Addendum entered by Krystin Em R.N. 11/15/18 03:12: Pain to back remains 04/04, notified [employer] for orders. Original Note: NOC shift Pt A/o x3, increased cough with pain to back. Medicated, RT following. Spo2 95% RA. IVF infusing. Lungs coarse, crackles, tight with coughing frequently. Small amount of sputum to tissue. Pt feels like a lot of effort to cough with minimal results. APAP for fever
[2018-11-15] MEDS: ACETAMINOPHEN 325 MG TABLET 650 MG PO ×2 (01:22→15:58)
[2018-11-15] MEDS: ALBUTEROL 2.5 MG/3 ML NEB (ADULT) INH ×2 (01:27→05:40)
[2018-11-15] MEDS: SODIUM CHLORIDE 0.9% 1,000 ML 75 ML IV ×2 (04:23→21:51)
[2018-11-15] MEDS: MORPHINE 2 MG/ML INJ IV (04:33)
[2018-11-15 06:34] LABS: Basophils Absolute Auto 100 /uL (0-100); Eosinophils Absolute Auto 100 /uL (0-450); Eosinophils Percent Auto 0.7 % (2-4); Hematocrit 24.2 % (36-46); Hemoglobin 7.2 g/dL (12.0-16.0); Lymphocytes Absolute Auto 1800 /uL (1100-4500); Lymphocytes Percent Auto 19.1 % (25-40); Mean Corpuscular HGB Conc 29.8 % (30-36); Mean Corpuscular Volume 67.2 fL (80-100); Monocytes Absolute Auto 1200 /uL (0-900); Neutrophils Absolute Auto 6300 /uL (1500-7000); Neutrophils Percent Auto 66.2 % (50-75); Platelet Count 313 X10^3/uL (150-400); Red Cell Distribution Width 33.7 % (11.6-14.8); White Blood Cell Count 9.5 X10^3/uL (4.5-11.0)
[2018-11-15 06:38] LABS: Add Manual Diff / Slide Review SLIDE REVIEW
[2018-11-15 06:43] LABS: Alanine Aminotransferase 35 IU/L (9-52); Albumin 3.8 g/dL (3.5-5.0); Albumin Globulin Ratio 1.4 (1.0-2.8); Alkaline Phosphatase 54 U/L (38-126); Aspartate Aminotransferase 36 IU/L (14-36); Bilirubin Total 0.6 mg/dL (0.2-1.3); Blood Urea Nitrogen 6 mg/dL (7-17); Calcium 8.3 mg/dL (8.4-10.2); Carbon Dioxide 25 mmol/L (22-32); Chloride 100 mmol/L (98-107); Estimated Glomerular Filt Rate > 60.0 mL/min (>60); Globulin 2.7 g/dL (1.7-4.1); Glucose 100 mg/dL (70-100); HEMOLYSIS < 15 (0-50); Potassium 3.1 mmol/L (3.4-5.1); Sodium 135 mmol/L (137-145); Total Protein 6.5 g/dL (6.3-8.2)
[2018-11-15 07:09] LABS: Procalcitonin 0.52 ng/mL (<0.5)
--- NOTE | 2018-11-15 08:25 | CM.IDA ---
Discharge Planning/Care Management CM Discharge Assessment Start: 11/15/18 08:21 Freq: Status: Active Protocol: Document 11/15/18 08:21 REJI (Rec: 11/15/18 08:25 REJI [id number]) Discharge Planning Assessment Assigned Club Director PARAS Evans DPOA/Assigned Designee Name Jan Crow, spouse Contact Information [phone] Advance Directives? No History Provided By Patient Prior Living Arrangements Mobile home Household Members spouse Type of transporation used prior to Drives own vehicle admit Independent with ADL's Yes Is patient alert and oriented? Yes Barriers to Discharge No Comment Pt here w/ Flu A, Anemia, Migraines, peptic ulcer disease. Payer: [employer]. Reviewed chart. Pt is a 48 yo female, A+Ox3, ambulating w/o assistance in rm. Pt will likely remain admitted an addtl. 24-48 for medical management and will DC home w/ spouse and close outpt f/u. No SW needs are anticipated. Will follow in case any arise. PARAS Thompson Discharge Plan Home Transportation Arrangement Family Referrals Initiated None needed Review Status In Process
[2018-11-15 08:42] LABS: Hypochromasia 2+; Nucleated Red Blood Cells 1 #/Diff; Polychromasia 2+
[2018-11-15 08:43] LABS: Microcytosis 3+
[2018-11-15] MEDS: guaiFENesin ER 600 MG TAB 1200 MG PO ×2 (09:29→20:58)
[2018-11-15] MEDS: PANTOPRAZOLE 20 MG TABLET PO (09:30)
[2018-11-15] MEDS: PSEUDOEPHEDRINE 30 MG TABLET PO (09:30)
[2018-11-15] MEDS: DICLOFENAC 1% GEL 100 GM 1 APPLIC TOP ×3 (09:31→20:56)
[2018-11-15] MEDS: OSELTAMIVIR 75 MG CAPSULE PO ×2 (10:44→22:01)
[2018-11-15] MEDS: POTASSIUM CHLORIDE 40 MEQ in SODIUM CHLORIDE 0.9% 500 ML 130 ML IV (10:48)
[2018-11-15 14:14] LABS: Haptoglobin 185 mg/dL (43-212)
[2018-11-15] MEDS: ALBUTEROL/IPRATROPIUM 3 ML AMPUL INH ×2 (14:42→19:10)
--- NOTE | 2018-11-15 15:32 | P.PN_ITS ---
Subjective Date Patient Seen: 11/15/18 Interval history: Amor Crow 48-year-old female with a past medical history significant for iron deficiency anemia, tobacco dependence, migraines, and peptic ulcer disease who presented to the ED out of concern for cough and dyspnea found to have influenza A and severe iron deficiency anemia. The patient is sitting in bed comfortably. She has significant cough with cough paroxysms which she reports has vastly improved today. She denies headache, shortness of breath, chest pain, abdominal pain, nausea, vomiting, fever, chills, dysuria, diarrhea constipation. She is voiding and eliminating without difficulty. Her BMs she reports are dark and have been guaiac negative. She is ambulating without assistance. Exam Vital Signs (past 8 hours): - 11/15/18 11:22 11/15/18 14:57 Temperature 99 F Pulse Rate 72 76 Respiratory Rate 18 16 Blood Pressure 94/55 L Pulse Oximetry 93 96 Oxygen Delivery Method Room Air Oxygen Flow Rate 0 Narrative Exam Narrative: General: Middle-aged thin cachetic female in no acute distress, appropriately interactive. HEENT: Normocephalic, atraumatic. External ears without defect. Pupils equal, round, and reactive to light. Anicteric sclerae, moist conjunctivae, and no lid lag. Poor dentition. Neck: Supple with full range of motion. No lymphadenopathy or thyromegaly. Cardiovascular: Regular rhythm and rate without murmurs, rubs, or gallops appreciated. Pulmonary: Diminished throughout but clear to auscultation bilaterally with few scattered wheeze. No rhonchi or rales. Normal respiratory effort with no use of accessory muscles. Abdomen: Soft, bowel sounds present, no tenderness to palpation, non-distended. No hepatomealy. Splenomegaly present. No masses appreciated. Extremities: No clubbing, cyanosis, or edema. Skin: Normal temperature, turgor, and texture; no rash, ulcers, or subcutaneous nodules appreciated. Numerous 1-2 cm healed circular scars over back posteriorly. Neurological: Cranial nerves grossly intact. Psychiatric: Normal mood and affect. Alert and oriented to person, place, and time. Objective Labs Result Diagrams: 11/15/18 05:45 11/15/18 05:45 Labs: Laboratory Results - last 24 hr 11/13/18 11/15/18 11/15/18 20:30 05:45 05:45 WBC 9.5 RBC 3.60 L Hgb 7.2 L Hct 24.2 L MCV 67.2 L MCH 20.0 L MCHC 29.8 L RDW 33.7 H Plt Count 313 Neut % (Auto) 66.2 Lymph % (Auto) 19.1 L Chaves % (Auto) 13.0 Eos % (Auto) 0.7 L Baso % (Auto) 1.0 Neut # (Auto) 6300 Lymph # (Auto) 1800 [place]aves # (Auto) 1200 H Eos # (Auto) 100 Baso # (Auto) 100 Nucleated RBCs 1 H RBC Morphology Not Reportable Polychromasia 2+ H Hypochromasia 2+ H Microcytosis 3+ H Haptoglobin 185 Sodium Potassium Chloride Carbon Dioxide BUN Creatinine Estimated GFR BUN/Creatinine Ratio Glucose Calcium Total Bilirubin AST ALT Alkaline Phosphatase Total Protein Albumin Globulin Albumin/Globulin Ratio Procalcitonin 0.52 H 11/15/18 05:45 WBC RBC Hgb Hct MCV MCH MCHC RDW Plt Count Neut % (Auto) Lymph % (Auto) [place]aves % (Auto) Eos % (Auto) Baso % (Auto) Neut # (Auto) Lymph # (Auto) [place]aves # (Auto) Eos # (Auto) Baso # (Auto) Nucleated RBCs RBC Morphology Polychromasia Hypochromasia Microcytosis Haptoglobin Sodium 135 L Potassium 3.1 L Chloride 100 Carbon Dioxide 25 BUN 6 L Creatinine 0.50 L Estimated GFR > 60.0 BUN/Creatinine Ratio 12.0 Glucose 100 Calcium 8.3 L Total Bilirubin 0.6 AST 36 ALT 35 Alkaline Phosphatase 54 Total Protein 6.5 Albumin 3.8 Globulin 2.7 Albumin/Globulin Ratio 1.4 Procalcitonin Assessment & Plan Assessment & Plan narrative: Amor Crow 48-year-old female with a past medical history significant for iron deficiency anemia, tobacco dependence, migraines, and peptic ulcer disease who presented to the ED out of concern for cough and dyspnea found to have influenza A and severe iron deficiency anemia. 1. Anemia, likely chronic as patient was asymptomatic, present on admission. Active -Likely multifactorial and due to iron deficiency (off iron supplements years), malnutrtion, splenomegaly and sequesteration, and possibly acute blood loss due to PUD. Also may be due to alternative causes such as autoimmune or malignancy. -Initial Hgb 4.3 without overt bleeding (melena, hematochezia, hemoptysis, or hematuria) and asymptomatic. Uses NSAIDs at home 2-4 tabs twice weekly. Guiac stool is negative. -Iron panel and ferritin demonstrated iron deficiency anemia. Reticulocyte count, B12 and folate normal. -LDH high, LFTs normal, and haptoglobin pending to r/o hemolytic anemia. -No NSAIDs and recommended stopping indefinitely. -Received 2 units of PRBCs. -Ordered ferrous sulfate 325 mg daily and will see how well she tolerates this before increasing frequency. Patient has tolerated slow release in the past but has been intolerant to iron supplementation in the past due to GI upset. -Repeat CBC daily. 2. Acute Influenza A URI, present on admission. Active. -Continue Tamiflu 75 mg twice daily. -Continue symptom management with mucinex 1200 mg twice daily and tessalon perles 100 three times daily as needed for cough. Added sudafed 30 mg for nasal congestion or rhinitis and cepacol lozenges for cough. -Continue IV fluids as below. -Chest xray did not demonstrate any acute cardiopulmonary process. Lactate WNL. No s/s of SIRS or sepsis. CT chest without contrast ordered for possible pulmonary nodules/malignancy, pending. -Procalcitonin initially elevated at 2.49 and has trended down to 0.52. Will repeat tomorrow. No antibiotics as no signs of pneumonia clinically or on chest x-ray -Blood Culture x2 has no growth to date. -Continue IV fluids as below. 3. Acute hypovolemia, present on admission. Active. -Patient hypokalemic today at 3.1 likely dilutional but repleted with potassium chloride 40 mEq IV x1. Will continue to replete electrolytes as necessary. -Continue IV hydration with normal saline at 100 mL/hr. 4. Possible LLQ abdominal pain, present on admission. Resolved. -Present on exam during admission in setting of concurrent severe anemia and viral illness. No reproducible/appreciable pain upon palpation. FHx of colon cancer. -CT abdomen and pelvis w/wo contrast due to concern for acute GI pathology, liver disease, and malignancy. CT abdomen and pelvis demonstrated splenomegaly with accessory spleen and incidental splenic cyst and moderate bilateral hydronephrosis, without hydroureter. No cause of obstruction can be seen. Also possible pulmonary nodules/opacities at lung bases and ordered CT chest without contrast as above. 5. Moderate protein malnutrition, chronic, present on admission. Presumed stable. -BMI 17.3. Patient denies weight loss. Appetite is fair. Currently acutely ill. -Consider checking for zinc and octavio deficiencies. 6. History of peptic ulcer disease, possibly present on admission. -Continue home PPI. -No NSAIDs. Disposition: Likely to discharge home tomorrow depending on stability of anemia and infectious workup and improvement in influenza infection. Quality VTE Deep Vein Thrombosis/Pulmonary Embolism Present on Admission: No
[2018-11-15 16:08] LABS: Magnesium 2.1 mg/dL (1.6-2.3)
--- NOTE | 2018-11-15 16:30 | PC.NURSE ---
Pt awake and alert sitting upright in bed. Frequent moist cough and pt states expectorant is clear. Pt c/o lower back pain and meds administered per emar. Is able to move all extremities independently. Room air 95%. Diminished breath sounds throughout with occasional faint, scattered wheeze. Offered pt nicotine patch and pt declines. IV flushes easily and draws blood briskly. K-rider infusion completed.
--- NOTE | 2018-11-15 17:33 | PC.NURSE ---
1630: Pt assessed, visiting with . Breath sounds lft upper anterior lobe, wheeze on exhale. Pt reports pain 8/10. PRN medications given for pain. 1730: Pain re-assessed, pt still complaining of pain 7/10, refuses lidocaine patch. Pt states pain level at home is usually at time 8/10. Takes Tylenol at home for pain.
--- NOTE | 2018-11-16 02:56 | PC.NURSE ---
Film Cutter Note: 0045: Awake, resting in bed. IV in place in lt wrist, with NS infusing at 75cc/hr. Pt has occasional coughing fits, non-productive. Vital signs stable. Pt remains on telemetry.
[2018-11-16 05:00] VITALS: BP 124/73; PULSE 76; RESP 16; TEMP 36.7; O2SAT 94
[2018-11-16 06:07] LABS: Alanine Aminotransferase 34 IU/L (9-52); Albumin 3.4 g/dL (3.5-5.0); Albumin Globulin Ratio 1.3 (1.0-2.8); Alkaline Phosphatase 50 U/L (38-126); Aspartate Aminotransferase 48 IU/L (14-36); Bilirubin Total 0.4 mg/dL (0.2-1.3); Blood Urea Nitrogen 4 mg/dL (7-17); Calcium 8.3 mg/dL (8.4-10.2); Carbon Dioxide 24 mmol/L (22-32); Chloride 105 mmol/L (98-107); Estimated Glomerular Filt Rate > 60.0 mL/min (>60); Globulin 2.7 g/dL (1.7-4.1); Glucose 96 mg/dL (70-100); HEMOLYSIS < 15 (0-50); Magnesium 1.9 mg/dL (1.6-2.3); Potassium 3.9 mmol/L (3.4-5.1); Sodium 137 mmol/L (137-145); Total Protein 6.1 g/dL (6.3-8.2)
[2018-11-16 06:18] LABS: Basophils Absolute Auto 100 /uL (0-100); Basophils Percent Auto 0.9 % (0-2); Eosinophils Absolute Auto 200 /uL (0-450); Eosinophils Percent Auto 1.7 % (2-4); Hematocrit 24.6 % (36-46); Hemoglobin 7.5 g/dL (12.0-16.0); Lymphocytes Absolute Auto 1300 /uL (1100-4500); Mean Corpuscular HGB Conc 30.3 % (30-36); Mean Corpuscular Hemoglobin 20.3 PG (26-34); Monocytes Absolute Auto 900 /uL (0-900); Monocytes Percent Auto 9.4 % (3-14); Neutrophils Absolute Auto 7300 /uL (1500-7000); Platelet Count 348 X10^3/uL (150-400); Red Blood Cell Count 3.68 X10^6/uL (4.0-5.2); Red Cell Distribution Width 34.7 % (11.6-14.8); White Blood Cell Count 9.7 X10^3/uL (4.5-11.0)
[2018-11-16 06:21] LABS: Add Manual Diff / Slide Review SLIDE REVIEW
[2018-11-16] MEDS: guaiFENesin ER 600 MG TAB 1200 MG PO (06:38)
[2018-11-16 06:50] LABS: Anisocytosis 3+
[2018-11-16 06:51] LABS: Hypochromasia 2+; Microcytosis 3+
[2018-11-16 06:52] LABS: Poikilocytosis 1+; Polychromasia 2+
[2018-11-16 07:19] LABS: Procalcitonin 0.19 ng/mL (<0.5)
[2018-11-16] MEDS: ALBUTEROL/IPRATROPIUM 3 ML AMPUL INH (07:26)
[2018-11-16 07:37] VITALS: PULSE 63; RESP 24; O2SAT 93
[2018-11-16 07:53] VITALS: BP 129/72; PULSE 62; RESP 18; TEMP 36.6; O2SAT 100
[2018-11-16] MEDS: FERROUS SULFATE 325 MG TABLET PO (08:15)
[2018-11-16] MEDS: PANTOPRAZOLE 20 MG TABLET PO (08:16)
[2018-11-16] MEDS: OSELTAMIVIR 75 MG CAPSULE PO (08:17)
[2018-11-16] MEDS: BENZONATATE 100 MG CAPSULE PO ×2 (08:19→14:51)
[2018-11-16] MEDS: CYCLOBENZAPRINE 5 MG TABLET PO ×2 (08:19→14:51)
[2018-11-16] MEDS: DICLOFENAC 1% GEL 100 GM 1 APPLIC TOP (08:20)
--- NOTE | 2018-11-16 10:30 | P.DS_ITS ---
History of Present Illness Date Patient Seen: 11/13/18 Chief complaint: flu like symptoms,chest pressure Narrative: Written by Mell Turner: The patient is a 48-year-old female with PMH significant for iron deficiency anemia, tobacco dependence, migraines, and peptic ulcer disease. Patient presented to the ED out of concern for cough and dyspnea. Symptoms initially noted on 11/10/2018. Today she felt as if her throat was closing (this was relieved by a rescue albuterol from a friend). Associated symptoms include subjective fever (did not check temperature, no chills), nausea (no vomiting or diarrhea), dizziness and lightheadedness, RLE cramping, chest tightness, and generalized malaise. Patient describes chest pain as tight and cramping, localizes it to the circumference of the torso. No radiation to the neck, right or left shoulder, or extremities. Dyspnea is worsened with exertion. Denies palpitations, diaphoresis, hemoptysis, syncopal events, abdominal pain, dysuria, urinary frequency, hematuria, melena or hematochezia. She does note abdominal bloating. Quickly achieves satiety and intolerant of large meals (chronic for patient). Denies new rash. Reports easy bruising, no new areas of eccymosis. Uses NSAIDs on occasion for pain. Initial lab work revealed WBC 11.6, RBC 2.79, HGB 4.3, HCT 15.5, MCV 55.3, MCH 15.3, MCHC 27.6, RDW 23.7, PLT 314 PT 12.4, INR 1.1, APTT 35 NA 132, K 3.6, CL 94, CA 9.4, CO2 27, BUN 11, CR 0.6, Lactate 0.9, PCT 2.49, INFLUENZA A positive CXR unremarkable for acute cardiopulmonary findings. 2 units of PRBCs ordered in ED for which patient currently undergoing a transfusion. Discharge Providers Date of admission: 11/13/18 15:08 Primary care physician: Mary Alice Wills DO Consults: 11/13/18 11:02 Consult to Respiratory Therapy Evaluate & Treat Comment: Physician Instructions: Evaluate and treat Discharge provider: Araceli Almendarez DO Discharge Date: 11/16/18 Summary Discharge Diagnosis: 1. Anemia, likely chronic as patient was asymptomatic, present on admission. Stable. 2. Acute Influenza A URI, present on admission. Resolving. 3. Acute hypovolemia, present on admission. Resolved. 4. Left lower quadrant abdominal pain likely secondary to splenomegaly, chronic, present on admission. Abdominal pain has resolved. 5. Moderate protein malnutrition, chronic, present on admission. Presumed stable. 6. History of peptic ulcer disease, possibly present on admission. Hospital Course: Amor Crow 48-year-old female with a past medical history significant for iron deficiency anemia, tobacco dependence, migraines, and peptic ulcer disease who presented to the ED out of concern for cough and dyspnea found to have influenza A and severe iron deficiency anemia. 1. Anemia, likely chronic as patient was asymptomatic, present on admission. Stable. -Likely multifactorial and due to iron deficiency (off iron supplements years), malnutrtion, splenomegaly and sequesteration, and possibly acute blood loss due to PUD. Also may be due to alternative causes such as autoimmune or malignancy. -Initial Hgb 4.3 without overt bleeding (melena, hematochezia, hemoptysis, or hematuria) and asymptomatic. Uses NSAIDs at home 2-4 tabs twice weekly. Guiac stool is negative. -Iron panel and ferritin demonstrated iron deficiency anemia. Reticulocyte count, B12 and folate normal. -LDH high, LFTs normal, and haptoglobin which r/o hemolytic anemia. -No NSAIDs and recommended stopping indefinitely. -Received 2 units of PRBCs. Hemoglobin and hematocrit stable. -Started ferrous sulfate 325 mg daily with food (if tolerates may increase frequency) and will recommend stool softner. Patient has tolerated slow release in the past but has been intolerant to iron supplementation in the past due to GI upset and metallic taste. Recommend follow-up with wet char conveyor tender for splenomegaly and further evaluation of iron deficiency anemia. -Repeated CBC daily. 2. Acute Influenza A URI, present on admission. Resolving. -Continued Tamiflu 75 mg twice daily for total of 5 days. -Continued symptom management with mucinex 1200 mg twice daily and tessalon perles 100 three times daily as needed for cough. Added sudafed 30 mg for nasal congestion or rhinitis and cepacol lozenges for cough. -Continued IV fluids as below. -Chest xray did not demonstrate any acute cardiopulmonary process. Lactate WNL. No s/s of SIRS or sepsis. CT chest without contrast ordered for possible pulmonary nodules/malignancy, pending. -Procalcitonin initially elevated at 2.49 and has trended down to normal. No antibiotics as no signs of pneumonia clinically or on chest x-ray -Blood Culture x2 has no growth to date. -Continued IV fluids as below. 3. Acute hypovolemia, present on admission. Resolved. -Patient hypokalemic at 3.1 likely dilutional but repleted with potassium chloride 40 mEq IV x1. Will continue to replete electrolytes as necessary. -Continued IV hydration with normal saline at 100 mL/hr until adequately hydrated. 4. Left lower quadrant abdominal pain likely secondary to splenomegaly, ch ronic, present on admission. Abdominal pain has resolved. -Left lower quadrant abdominal pain present on exam during admission in setting of concurrent severe anemia and viral illness. No reproducible/appreciable pain upon palpation. FHx of colon cancer. -CT abdomen and pelvis w/wo contrast due to concern for acute GI pathology, liver disease, and malignancy. CT abdomen and pelvis demonstrated splenomegaly with accessory spleen and incidental splenic cyst and moderate bilateral hydronephrosis, without hydroureter. No cause of obstruction can be seen. -Splenomegaly likely secondary to significant alcohol use in the past. Recommend hematological workup. 5. Moderate protein malnutrition, chronic, present on admission. Presumed stable. -BMI 17.3. Patient denies weight loss. Appetite is fair. Currently acutely ill. May possibly be secondary to malabsorption versus patient's normal habitus versus underlying malignancy (GI?) that is in apparent. 6. History of peptic ulcer disease, possibly present on admission. -Continued home PPI. -No NSAIDs. Status at Discharge Functional status at discharge: independent ambulation Overall status at discharge: patient is progressing back to baseline Exam Vital Signs (past 8 hours): - 11/15/18 23:00 11/16/18 05:00 Temperature 98.2 F 98.1 F Pulse Rate 66 76 Respiratory Rate 16 16 Blood Pressure 107/55 L 124/73 Pulse Oximetry 100 94 Oxygen Delivery Method Room Air Oxygen Flow Rate 0 Narrative Exam Narrative: General: Middle-aged thin cachetic female in no acute distress, appropriately interactive. HEENT: Normocephalic, atraumatic. External ears without defect. Pupils equal, round, and reactive to light. Anicteric sclerae, moist conjunctivae, and no lid lag. Poor dentition. Neck: Supple with full range of motion. No lymphadenopathy or thyromegaly. Cardiovascular: Regular rhythm and rate without murmurs, rubs, or gallops appreciated. Pulmonary: Diminished throughout but clear to auscultation bilaterally. No wheeze, rhonchi or rales. Normal respiratory effort with no use of accessory muscles. Abdomen: Soft, bowel sounds present, no tenderness to palpation, non-distended. No hepatomealy. Splenomegaly present. No masses appreciated. Extremities: No clubbing, cyanosis, or edema. Skin: Normal temperature, turgor, and texture; no rash, ulcers, or subcutaneous nodules appreciated. Numerous 1-2 cm healed circular scars over back posteriorly. Neurological: Cranial nerves grossly intact. Psychiatric: Normal mood and affect. Alert and oriented to person, place, and time. Objective Labs Result Diagrams: 11/16/18 05:35 11/16/18 05:35 Labs: Laboratory Results - last 24 hr 11/13/18 11/15/18 11/15/18 20:30 05:45 05:45 WBC RBC Hgb Hct MCV MCH MCHC RDW Plt Count Neut % (Auto) Lymph % (Auto) Forest % (Auto) Eos % (Auto) Baso % (Auto) Neut # (Auto) Lymph # (Auto) Forest # (Auto) Eos # (Auto) Baso # (Auto) Nucleated RBCs 1 H RBC Morphology Not Reportable Polychromasia 2+ H Hypochromasia 2+ H Poikilocytosis Anisocytosis Microcytosis 3+ H Haptoglobin 185 Sodium Potassium Chloride Carbon Dioxide BUN Creatinine Estimated GFR BUN/Creatinine Ratio Glucose Calcium Magnesium Total Bilirubin AST ALT Alkaline Phosphatase Total Protein Albumin Globulin Albumin/Globulin Ratio Procalcitonin 0.52 H 11/15/18 11/16/18 11/16/18 05:45 05:35 05:35 WBC 9.7 RBC 3.68 L Hgb 7.5 L Hct 24.6 L MCV 67.0 L MCH 20.3 L MCHC 30.3 RDW 34.7 H Plt Count 348 Neut % (Auto) 75.0 Lymph % (Auto) 13.0 L Forest % (Auto) 9.4 Eos % (Auto) 1.7 L Baso % (Auto) 0.9 Neut # (Auto) 7300 H Lymph # (Auto) 1300 Forest # (Auto) 900 Eos # (Auto) 200 Baso # (Auto) 100 Nucleated RBCs RBC Morphology See below Polychromasia 2+ H Hypochromasia 2+ H Poikilocytosis 1+ H Anisocytosis 3+ H Microcytosis 3+ H Haptoglobin Sodium 137 Potassium 3.9 Chloride 105 Carbon Dioxide 24 BUN 4 L Creatinine 0.40 L Estimated GFR > 60.0 BUN/Creatinine Ratio 10.0 Glucose 96 Calcium 8.3 L Magnesium 2.1 1.9 Total Bilirubin 0.4 AST 48 H ALT 34 Alkaline Phosphatase 50 Total Protein 6.1 L Albumin 3.4 L Globulin 2.7 Albumin/Globulin Ratio 1.3 Procalcitonin Discharge Plan Discharge Plan Patient Disposition: Home Discharge comment: You're being discharged home. Please follow up at your scheduled appointment with your PCP, Dr. Wills, regarding her hospitalization. Recommend that you be referred to Urology or nephrology for further workup of your bilateral hydronephrosis, hematology for further workup of your splenomegaly, anemia and consideration for IV iron transfusions and GI for screening colonoscopy and possible upper endoscopy to ensure that there is no GI cause for your severe iron deficiency anemia. Avoid NSAIDS (ibuprofen, Aleve, indomethacin, meloxicam, etc). Repeat chest x-ray in 4-6 weeks. Continue iron supplementation with ferrous sulfate 325 mg daily and stool softener. If you are tolerating the iron supplement you may try taking it twice daily. Discharge Med Rec/Prescriptions Prescriptions: New acetaminophen 325 mg Tablet 650 mg PO Q6HR PRN (Reason: As Needed For Fever/Mild Pain) Qty: 30 RF: 0 benzonatate 100 mg Capsule 100 mg PO TID PRN (Reason: Cough) Qty: 30 RF: 0 oseltamivir [Tamiflu] 75 mg Capsule 75 mg PO BID Qty: 6 RF: 0 ferrous sulfate 325 mg (65 mg iron) Tablet 325 mg PO DAILY Qty: 30 RF: 0 pseudoephedrine HCl 30 mg Tablet 30 mg PO Q6HR PRN (Reason: Congestion) Qty: 30 RF: 0 cyclobenzaprine 5 mg tablet 5 mg PO BEDTIME PRN (Reason: muscle spasm) Qty: 10 RF: 0 Continued Vicks Vaporub 4.7-1.2-2.6 % Ointment 1 applic Topical PRN PRN (Reason: Cold Symptoms) RF: 0 omeprazole 20 mg Capsule,Delayed Release(Dr/Ec) 20 mg PO DAILY Qty: 30 RF: 0 Changed guaifenesin [Mucinex] 600 mg Tablet Extended Release 12hr 1,200 mg PO Q12H Qty: 30 RF: 0 Discontinued ibuprofen 200 mg Tablet 1 dose PO PRN PRN (Reason: pain) RF: 0 Excedrin Extra Strength 250-250-65 mg Tablet 1 tab PO PRN PRN (Reason: headache or pain) RF: 0 Vicks DayQuil Cold-Flu Relief 5-10-325 mg Capsule 1 cap PO BID RF: 0 Follow up/Referrals: Mary Alice Wills DO [Primary Care Provider] - 11/17/18 3:15 pm (*11/17 @ 3:15 (check in ) for appointment with dr wills [phone]) Provider Discharge Instructions Diet: Diet as Tolerated Diet comment: High calorie diet Activity: Activity as tolerated Discharge Data Primary Care Provider: Mary Alice Wills Attending Provider: Araceli Almendarez Admit Date/Time: 11/13/18 15:08 Quality VTE Deep Vein Thrombosis/Pulmonary Embolism Present on Admission: No
== END 2018-11-16 14:58 | disposition home or self-care (01) ==
LOC: ED 15:05 → AC 15:09
PROVIDERS: Emergency Medicine; Nurse Practitioner Gerontology; Admitting Provider Internal Medicine; Emergency Provider Nurse Practitioner Family; PCP Family Medicine; Visit Provider Internal Medicine
DX: J10.1 Influenza due to other identified influenza virus with other respiratory manifestations (principal); R50.9 Fever, unspecified; F17.210 Nicotine dependence, cigarettes, uncomplicated; D50.9 Iron deficiency anemia, unspecified; E86.1 Hypovolemia; R16.1 Splenomegaly, not elsewhere classified; E46 Unspecified protein-calorie malnutrition; Z68.1 Body mass index [BMI] 19.9 or less, adult; Z87.11 Personal history of peptic ulcer disease; Z23 Encounter for immunization
CPT/HCPCS: 36415; 36430; 36591; 71045; 71250; 74177; 80048; 80053; 80076; 81001; 81003; 81015; 82272; 82550; 82553; 82607; 82728; 82746; 83010; 83540; 83550; 83605; 83615; 83690; 83735; 84145; 84484; 85025; 85045; 85610; 85730; 86850; 86900; 86901; 87040; 87400; 90471; 90656; 93005; 94640; 96361; 96374; 96375; 99284; 99285; G0378; P9016; J1885; J2270; J2405; J3480; J7613; Q2038; Q9967

== ENCOUNTER → 2018-11-17 16:08 | Outpatient (CLI) | payer OTHER, SELFPAY ==
[2018-11-13 16:12] VITALS: BMI 17.7
[2018-11-17 16:28] LABS: Hematocrit 28.8 % (36-46); Hemoglobin 8.5 g/dL (12.0-16.0); Mean Corpuscular HGB Conc 29.4 % (30-36); Mean Corpuscular Hemoglobin 20.1 PG (26-34); Mean Corpuscular Volume 68.3 fL (80-100); Platelet Count 443 X10^3/uL (150-400); Red Blood Cell Count 4.21 X10^6/uL (4.0-5.2); Red Cell Distribution Width 35.7 % (11.6-14.8); White Blood Cell Count 9.9 X10^3/uL (4.5-11.0)
[2018-11-17 16:51] LABS: Add Manual Diff / Slide Review YES
[2018-11-17 16:54] LABS: Neutrophils Absolute Manual 7821 /uL (3000-5900); Total Cells Counted 100
[2018-11-17 16:55] LABS: Anisocytosis 3+
[2018-11-17 16:56] LABS: Hypochromasia 3+; Microcytosis 3+; Ovalocytes 1+; Polychromasia 2+
[2018-11-17 16:57] LABS: Poikilocytosis 2+
== END ==
PROVIDERS: PCP Family Medicine; Visit Provider Family Medicine
DX: D50.9 Iron deficiency anemia, unspecified (principal)
CPT/HCPCS: 85025

== ENCOUNTER → 2019-02-16 12:26 | Outpatient (CLI) | payer OTHER, SELFPAY ==
[2018-11-13 16:12] VITALS: BMI 17.7
--- NOTE | 2019-02-16 | DI.NM.S_ITS ---
PROCEDURE: NM RENAL FUNCTION W LASIX RADIOPHARMACEUTICAL: 9.4 mCi Tc-99m MAG3 IV and 40 mg furosemide IV. INDICATIONS: HYDRONEPHROSIS TECHNIQUE: The patient was hydrated orally before the examination was begun. After intravenous administration of Tc-99m MAG3, posterior abdominal radionuclide angiogram and sequential (1 minute each frame) renal images were obtained. A time-activity curve for each kidney was generated and analyzed. To evaluate for obstruction, the patient was given 40 mg furosemide via slow intravenous injection after the start of the examination. Sequential images were obtained for up to an additional 20 minutes. COMPARISON: [facility], CT, CT ABDOMEN PELVIS W CON, 11/14/2018, 9:08. FINDINGS: Perfusion: There is normal vascular flow to both kidneys. Morphology: Both kidneys are normal in size and shape. There is intrarenal pelvis bilaterally. The right renal pelvis is mildly patulous. No dilated left renal collecting system is seen. The ureters and bladder fill with tracer, and appear normal. Function: Both kidneys demonstrate normal cortical tracer uptake, with qtiq-fh-jjvy activity ranging from 3 to 5 minutes. The right kidney contributes to 55% of total renal function. The left kidney contributes 45% of total renal function. Lasix stimulation: After diuretic administration, there is prompt clearance of tracer activity from the renal collecting systems in both kidneys. The half-time of emptying of tracer activity from the right pelvicaliceal system is 4.5 minutes. The half-time of emptying from the left pelvicaliceal system is 8.8 minutes. Normal emptying half-times are less than 10 minutes; borderline ranges are from 10 to 20 minutes. IMPRESSION: 1. Mildly patulous right renal collecting system without right renal obstruction. 2. Normal left renal function. 3. Right kidney contributes 55% of total renal function, left kidney contributes 45% of total renal function. Dictated by: Shannan Mcghee M.D. on 02/16/2019 at 14:35 Approved by: Shannan Mcghee M.D. on 02/16/2019 at 14:43
== END ==
PROVIDERS: PCP Family Medicine; Visit Provider Urology
DX: N13.30 Unspecified hydronephrosis (principal)
CPT/HCPCS: 78708; A9562

== ENCOUNTER → 2019-03-06 12:49 | Outpatient (CLI) | payer OTHER, SELFPAY ==
[2018-11-13 16:12] VITALS: BMI 17.7
[2019-03-06 13:31] LABS: Add Manual Diff / Slide Review NO; Basophils Absolute Auto 0 /uL (0-100); Basophils Percent Auto 0.6 % (0-2); Eosinophils Absolute Auto 100 /uL (0-450); Eosinophils Percent Auto 1.4 % (2-4); Hematocrit 40.9 % (36-46); Hemoglobin 13.7 g/dL (12.0-16.0); Lymphocytes Absolute Auto 1400 /uL (1100-4500); Mean Corpuscular HGB Conc 33.6 % (30-36); Mean Corpuscular Hemoglobin 27.5 PG (26-34); Mean Corpuscular Volume 81.9 fL (80-100); Monocytes Absolute Auto 500 /uL (0-900); Monocytes Percent Auto 7.1 % (3-14); Neutrophils Absolute Auto 5000 /uL (1500-7000); Neutrophils Percent Auto 70.9 % (50-75); Platelet Count 309 X10^3/uL (150-400); Red Blood Cell Count 4.99 X10^6/uL (4.0-5.2); Red Cell Distribution Width 17.6 % (11.6-14.8)
[2019-03-06 13:57] LABS: HEMOLYSIS < 15 (0-50); Iron 148 ug/dL (37-170)
[2019-03-06 13:58] LABS: Alanine Aminotransferase 33 IU/L (9-52); Albumin Globulin Ratio 1.7 (1.0-2.8); Alkaline Phosphatase 108 U/L (38-126); Aspartate Aminotransferase 32 IU/L (14-36); BUN Creatinine Ratio 16.7 (6-22); Bilirubin Total 0.6 mg/dL (0.2-1.3); Blood Urea Nitrogen 10 mg/dL (7-17); Calcium 10.2 mg/dL (8.4-10.2); Carbon Dioxide 30 mmol/L (22-32); Chloride 98 mmol/L (98-107); Estimated Glomerular Filt Rate > 60.0 mL/min (>60); Glucose 80 mg/dL (70-100); HEMOLYSIS < 15 (0-50); Potassium 5.1 mmol/L (3.4-5.1); Sodium 138 mmol/L (137-145)
[2019-03-06 14:07] LABS: Percent Iron Saturation 40 % (15-50); Total Iron Binding Capacity 371 ug/dL (265-497); Transferrin 305 mg/dL (206-381)
[2019-03-06 14:35] LABS: Ferritin 79.5 ng/mL (11.1-264)
== END ==
PROVIDERS: PCP Family Medicine; Visit Provider Internal Medicine Hematology & Oncology
DX: D50.9 Iron deficiency anemia, unspecified (principal)
CPT/HCPCS: 80053; 82728; 83540; 83550; 85025

== ENCOUNTER → 2019-09-10 14:00 | Oncology outpatient (ONC) | payer OTHER, SELFPAY ==
[2018-11-13 16:12] VITALS: BMI 17.7
[2019-01-01 15:47] VITALS: BP 108/67; PULSE 66; RESP 18; TEMP 36.4; O2SAT 99
--- NOTE | 2019-01-01 15:55 | ONC.CONS ---
History of Present Illness - Data of Consult Patient: new to practice Consult date: 01/01/19 Requesting Physician: Mary Alice Wills DO Primary Care Provider: Mary Alice Wills DO - Consult Narrative Reason for consult: Anemia Narrative: Amor Crow is a 48 year old female. She said she has been anemic all her life. She tried iron pills but had to stop because of stomach upset. Patient recalled that in 1999, patient had a perforated gastric ulcer which presumably precipitated by use of ibuprofen. she had blood transfusion, adn underwent exploratory laparotomy. hey removed the two stomach ulcers, part of the colon, part of the intestines. After the surgery, she has never has any bleeding issue anymore. She has been followed by Dr. Wills. Recently, she was hospitalized for flu like symptoms and chest pressure. She was found to have a hemoglobin level of 4.3 and iron panel and ferritin demonstrated iron deficiency anemia. Patient received 2 units of blood transfusion and then was started on ferrous sulfate 325 mg once daily. Patient was discharged from the hospital and presents here today for post discharge follow-up visit. She said that she is a little tired. She has lower back pain, has been present all her life, recently got worse. She has shortness of breath at times and has to take inhaler albuterol. No chest pain. She has nausea but no vomiting. She has abdominal pain here and there. No blood in the stool. No blood in the urine. She has been post menopause for the past 5 years. CC: Miguelito Starks MD Patient reports pain?: No Home Medications and Allergies Home Medications Medication Instructions Recorded Confirmed Type Vicks Vaporub 1 applic TOPICAL PRN PRN 11/13/18 11/17/18 History acetaminophen 650 mg PO Q6HR PRN #30 tab 11/16/18 11/17/18 Rx guaifenesin [Mucinex] 1,200 mg PO Q12H #30 tab 11/16/18 11/17/18 Rx omeprazole 20 mg PO DAILY #30 cap 11/16/18 11/17/18 Rx pseudoephedrine HCl 30 mg PO Q6HR PRN #30 tab 11/16/18 11/17/18 Rx albuterol sulfate HFA 90 2 puff INHALATION Q6H PRN #18 gram 11/17/18 Rx mcg/actuation aerosol inhaler ascorbic acid (vitamin C) 1,000 mg 1 gram PO DAILY tab 11/17/18 11/17/18 History tablet cholecalciferol (vitamin D3) 1,000 1,000 unit PO DAILY 11/17/18 11/17/18 History unit capsule cyclobenzaprine 10 mg tablet 10 mg PO BID PRN #30 tab 11/17/18 Rx docusate sodium 100 mg capsule 100 mg PO DAILY 11/17/18 11/17/18 History ferrous sulfate 325 mg (65 mg 325 mg PO BID #60 tab 12/08/18 Rx iron) tablet cyclobenzaprine 5 mg tablet 5 mg PO BEDTIME PRN #10 tab 12/18/18 Rx Allergies Allergy/AdvReac Type Severity Reaction Status Date / Time sumatriptan Allergy Severe Anaphylaxis Verified 11/17/18 15:33 codeine Allergy Intermediate Hives Verified 11/17/18 15:33 dihydroergotamine Allergy Unknown Verified 11/17/18 15:33 Medical History - Medical, Surgical, Family History Medical History: Medical History (Updated 01/01/19 @ 17:54 by Miguelito Starks MD) Migraine Stomach ulcer Smoker Surgical History: Surgical History (Updated 01/01/19 @ 17:54 by Miguelito Starks MD) H/O cervical spine surgery Hx of adenoidectomy Family History: Family History (Updated 01/01/19 @ 16:16 by Miguelito Starks MD) Daughter Testicular cancer Father Colon cancer - Social History Smoking Status: Former smoker Quit Date: 11/08/18 Substance Use Type: does not use Alcohol Intake: former (quited 11/07/2018, mostly beer, every day) Review of Systems - Patient Self-Reported Symptoms SR Constitution: Fatigue/Malaise, Night Sweats SR eye issues: Vision changes SR ears, nose, mouth, throat issues: Ears ringing, Congestion, Bleeding gums, Changes in taste, Hoarseness SR respiratory issues: Shortness of breath, Mucous SR Cardiovascular issues: Dizzy/lightheaded SR Skin issues: Dry skin, Skin rash or itching, Nail changes SR Gastrointestinal issues: Change in bowel pattern, Nausea, Constipation, Abdominal pain SR Musculoskeletal issues: Muscle weakness, Muscle pain or cramps, Back or neck pain SR Neuro issues: Headache, Lightheaded/dizzy, Numbness or tingling SR Hematologic issues: Bleeding/bruising SR Endocrine issues: Hot flashes All systems PM: reviewed and no additional remarkable complaints except as stated Exam Vital signs: Last Vital Signs Temp 97.5 F L 01/01/19 15:47 Pulse 66 01/01/19 15:47 Resp 18 01/01/19 15:47 BP 108/67 01/01/19 15:47 Pulse Ox 99 01/01/19 15:47 ECOG 1 Narrative: Gen: WD, thin, NAD, pleasant and cooperative, accompanied by her . HEENT: NCAT, EOMI, PERRLA, anicteric sclera. Neck: Supple, No palpable thyromegaly or lymphadenopathy. Respiratory: CTAB, no wheezes audible. No JVD Cardiovascular: RRR, S1 and S2 normal, no M/G/R. Abdomen: Soft, mild tenderness under the epigastric area, no rebound. BS normal, no palpable organomegaly Extremities: No LE pitting edema. Lymphatic: no palpable lymph nodes in the neck, axillae, or groins. Neurological: AOx3, CN II-XII grossly intact. No focal motor or sensory deficit. Psychiatric: Good judgment and insight; normal affect; normal thought process; cooperative, no depression, no anxiety. Results - Labs REVIEWED. - Imaging Additional studies: Procedures Administration of [id number], combined (10/04/13) Assessment and Plan (1) Hypochromic microcytic anemia Patient has a long history of chronic anemia which is characterized by hypochromic and microcystic anemia. Studies from October 2018 showed that the ferritin level was only 9.3 consistent with iron deficiency anemia. Patient denies any bleeding history recently. But she did report a remote history of gastric ulcer bleeding with perforation requiring exploratory laparotomy and surgical resection ?of the 2 ulcers in the stomach, part of the colon, and part of the intestines?. I am suspicious that these surgical procedures might be the reason for mild absorption of the or irons. I talked with the patient that I will first proceed with repeating of the studies for routine anemia including not just iron deficiency anemia but also vitamin B12, folic acid level, haptoglobin level, protein electrophoresis, and LDH. I will bring the patient back in about 1-2 weeks for review of the results. Plan: 1. CBC, CMP, Iron panel, Ferritin, Haptoglobin, LDH, Mg, B2M, TSH, Folate, B12 and SPEP 2. RTC in 1-2 weeks to review the results. 3. Continue oral iron without any changes for now.
[2019-01-09 12:57] LABS: Add Manual Diff / Slide Review NO; Basophils Absolute Auto 0 /uL (0-100); Basophils Percent Auto 0.6 % (0-2); Eosinophils Absolute Auto 100 /uL (0-450); Eosinophils Percent Auto 1.7 % (2-4); Hemoglobin 11.7 g/dL (12.0-16.0); Lymphocytes Absolute Auto 1100 /uL (1100-4500); Lymphocytes Percent Auto 13.7 % (25-40); Mean Corpuscular HGB Conc 31.7 % (30-36); Mean Corpuscular Hemoglobin 24.5 PG (26-34); Mean Corpuscular Volume 77.4 fL (80-100); Monocytes Absolute Auto 500 /uL (0-900); Monocytes Percent Auto 5.9 % (3-14); Neutrophils Absolute Auto 6200 /uL (1500-7000); Neutrophils Percent Auto 78.1 % (50-75); Platelet Count 208 X10^3/uL (150-400); Red Blood Cell Count 4.78 X10^6/uL (4.0-5.2); Red Cell Distribution Width 23.8 % (11.6-14.8)
[2019-01-09 13:17] LABS: HEMOLYSIS < 15 (0-50); Iron 75 ug/dL (37-170)
[2019-01-09 13:20] LABS: Alanine Aminotransferase 38 IU/L (9-52); Albumin Globulin Ratio 1.7 (1.0-2.8); Alkaline Phosphatase 78 U/L (38-126); Aspartate Aminotransferase 29 IU/L (14-36); BUN Creatinine Ratio 12.9 (6-22); Bilirubin Total 0.5 mg/dL (0.2-1.3); Blood Urea Nitrogen 9 mg/dL (7-17); Carbon Dioxide 29 mmol/L (22-32); Chloride 99 mmol/L (98-107); Estimated Glomerular Filt Rate > 60.0 mL/min (>60); Glucose 97 mg/dL (70-100); HEMOLYSIS < 15 (0-50); Lactate Dehydrogenase 339 U/L (313-618); Magnesium 1.8 mg/dL (1.6-2.3); Potassium 3.8 mmol/L (3.4-5.1); Sodium 140 mmol/L (137-145)
[2019-01-09 13:27] LABS: Anisocytosis 2+; Microcytosis 2+; Poikilocytosis 1+
[2019-01-09 13:28] LABS: Percent Iron Saturation 15 % (15-50); Total Iron Binding Capacity 491 ug/dL (265-497); Transferrin 407 mg/dL (206-381)
[2019-01-09 13:29] LABS: Hypochromasia 2+
[2019-01-09 13:52] LABS: Thyroid Stimulating Hormone 1.74 uIU/mL (0.47-4.68)
[2019-01-09 13:58] LABS: Ferritin 6.8 ng/mL (11.1-264)
[2019-01-09 14:28] LABS: Folate 11.7 ng/mL (2.76-20.0); Vitamin B12 664 pg/mL (239-931)
[2019-01-10 11:52] LABS: Beta-2-Microglobulin 1.93 mg/L (< 2.52)
[2019-01-11 14:18] LABS: Haptoglobin 137 mg/dL (43-212)
[2019-01-12 22:21] LABS: Abnormal Protein Band 1 0.2 g/dL (NONE DETECTED); Albumin 4.5 g/dL (3.8-4.8); Alpha 1 Globulin 0.3 g/dL (0.2-0.3); Alpha 2 Globulin 0.7 g/dL (0.5-0.9); Beta 1 Globulin 0.6 g/dL (0.4-0.6); Protein, Total 7.4 g/dL (6.1-8.1)
[2019-01-15 13:08] VITALS: BP 126/71; PULSE 69; RESP 16; TEMP 37.1; O2SAT 100
--- NOTE | 2019-01-15 13:29 | ONC.PN ---
PN -Subjective Interval history: Amor Crow is a 48 year old female. She said she has been anemic all her life. She tried iron pills but had to stop because of stomach upset. Patient recalled that in 1999, patient had a perforated gastric ulcer which presumably precipitated by use of ibuprofen. she had blood transfusion, and underwent exploratory laparotomy. They removed the two stomach ulcers, part of the colon, part of the intestines. After the surgery, she has never had any bleeding issue anymore. She has been followed by Dr. Wills. Recently, she was hospitalized for flu like symptoms and chest pressure. She was found to have a hemoglobin level of 4.3 and iron panel and ferritin demonstrated iron deficiency anemia. Patient received 2 units of blood transfusion and then was started on ferrous sulfate 325 mg once daily. Patient was discharged from the hospital and presents here today for post discharge follow-up visit. She said that she is a little tired. She has lower back pain, has been present all her life, recently got worse. She has shortness of breath at times and has to take inhaler albuterol. No chest pain. She has nausea but no vomiting. She has abdominal pain here and there. No blood in the stool. No blood in the urine. She has been post menopause for the past 5 years. - Patient Self-Reported Symptoms SR Constitution: Night Sweats SR eye issues: Vision changes, Eye pain SR ears, nose, mouth, throat issues: Ears ringing, Congestion, Bleeding gums, Hoarseness SR respiratory issues: Mucous SR Cardiovascular issues: Shortness of breath with activity or lying flat, Dizzy/lightheaded SR Skin issues: Dry skin, Skin rash or itching, Skin lesions or moles, Nail changes SR Gastrointestinal issues: Nausea, Abdominal pain SR Musculoskeletal issues: Muscle pain or cramps, Back or neck pain, Cold hands or feet SR Neuro issues: Headache, Lightheaded/dizzy, Numbness or tingling SR Hematologic issues: Bleeding/bruising SR Endocrine issues: Hot flashes - Additional ROS All systems PM: reviewed and no additional remarkable complaints except as stated Home Medications and Allergies Home Medications Medication Instructions Recorded Confirmed Type Vicks Vaporub 1 applic TOPICAL PRN PRN 11/13/18 01/15/19 History acetaminophen 650 mg PO Q6HR PRN #30 tab 11/16/18 01/15/19 Rx guaifenesin [Mucinex] 1,200 mg PO Q12H #30 tab 11/16/18 01/15/19 Rx omeprazole 20 mg PO DAILY #30 cap 11/16/18 01/15/19 Rx pseudoephedrine HCl 30 mg PO Q6HR PRN #30 tab 11/16/18 01/15/19 Rx albuterol sulfate HFA 90 2 puff INHALATION Q6H PRN #18 gram 11/17/18 01/15/19 Rx mcg/actuation aerosol inhaler ascorbic acid (vitamin C) 1,000 mg 1 gram PO DAILY tab 11/17/18 01/15/19 History tablet cholecalciferol (vitamin D3) 1,000 1,000 unit PO DAILY 11/17/18 01/15/19 History unit capsule docusate sodium 100 mg capsule 100 mg PO DAILY 11/17/18 01/15/19 History ferrous sulfate 325 mg (65 mg 325 mg PO BID #60 tab 12/08/18 01/15/19 Rx iron) tablet cyclobenzaprine 5 mg tablet 5 mg PO BEDTIME PRN #10 tab 12/18/18 01/15/19 Rx cyclobenzaprine 10 mg tablet 10 mg PO BID PRN #30 tab 01/02/19 01/15/19 Rx Allergies Allergy/AdvReac Type Severity Reaction Status Date / Time sumatriptan Allergy Severe Anaphylaxis Verified 11/17/18 15:33 codeine Allergy Intermediate Hives Verified 11/17/18 15:33 dihydroergotamine Allergy Unknown Verified 11/17/18 15:33 Exam Vital signs: Vital Signs Temp Pulse Resp BP Pulse Ox 01/15/19 13:08 98.7 F 69 16 126/71 100 Intake and Output 01/14/19 01/15/19 01/15/19 23:59 07:59 15:59 Other: Weight 55.5 kg Patient Weight 01/15/19 23:59 Weight 55.5 kg Narrative: Gen: WD, thin, NAD, pleasant and cooperative, accompanied by her . HEENT: NCAT, EOMI, PERRLA, anicteric sclera. Neck: Supple, No palpable thyromegaly or lymphadenopathy. Respiratory: CTAB, no wheezes audible. No JVD Cardiovascular: RRR, S1 and S2 normal, no M/G/R. Abdomen: Soft, mild tenderness under the epigastric area, no rebound. BS normal, no palpable organomegaly Extremities: No LE pitting edema. Lymphatic: no palpable lymph nodes in the neck, axillae, or groins. Neurological: AOx3, CN II-XII grossly intact. No focal motor or sensory deficit. Psychiatric: Good judgment and insight; normal affect; normal thought process; cooperative, no depression, no anxiety. Results - Labs Laboratory Last Values WBC 8.0 X10^3/uL (4.5-11.0) 01/09/19 12:10 RBC 4.78 X10^6/uL (4.0-5.2) 01/09/19 12:10 Hgb 11.7 g/dL (12.0-16.0) L 01/09/19 12:10 Hct 37.0 % (36-46) 01/09/19 12:10 MCV 77.4 fL (80-100) L 01/09/19 12:10 MCH 24.5 PG (26-34) L 01/09/19 12:10 MCHC 31.7 % (30-36) 01/09/19 12:10 RDW 23.8 % (11.6-14.8) H 01/09/19 12:10 Plt Count 208 X10^3/uL (150-400) 01/09/19 12:10 Neut % (Auto) 78.1 % (50-75) H 01/09/19 12:10 Lymph % (Auto) 13.7 % (25-40) L 01/09/19 12:10 [place] % (Auto) 5.9 % (3-14) 01/09/19 12:10 Eos % (Auto) 1.7 % (2-4) L 01/09/19 12:10 Baso % (Auto) 0.6 % (0-2) 01/09/19 12:10 Neut # (Auto) 6200 /uL (4518-1000) 01/09/19 12:10 Lymph # (Auto) 1100 /uL (9069-6177) 01/09/19 12:10 [place] # (Auto) 500 /uL (0-900) 01/09/19 12:10 Eos # (Auto) 100 /uL (0-450) 01/09/19 12:10 Baso # (Auto) 0 /uL (0-100) 01/09/19 12:10 RBC Morphology See below 01/09/19 12:10 Hypochromasia 2+ H 01/09/19 12:10 Poikilocytosis 1+ H 01/09/19 12:10 Anisocytosis 2+ H 01/09/19 12:10 Microcytosis 2+ H 01/09/19 12:10 Haptoglobin 137 mg/dL (43-212) 01/09/19 12:10 Sodium 140 mmol/L (137-145) 01/09/19 12:10 Potassium 3.8 mmol/L (3.4-5.1) 01/09/19 12:10 Chloride 99 mmol/L (98-107) 01/09/19 12:10 Carbon Dioxide 29 mmol/L (22-32) 01/09/19 12:10 BUN 9 mg/dL (7-17) 01/09/19 12:10 Creatinine 0.70 mg/dL (0.52-1.04) 01/09/19 12:10 Estimated GFR > 60.0 mL/min (>60) 01/09/19 12:10 BUN/Creatinine Ratio 12.9 (6-22) 01/09/19 12:10 Glucose 97 mg/dL (70-100) 01/09/19 12:10 Calcium 10.0 mg/dL (8.4-10.2) 01/09/19 12:10 Magnesium 1.8 mg/dL (1.6-2.3) 01/09/19 12:10 Iron 75 ug/dL (37-170) 01/09/19 12:10 TIBC 491 ug/dL (265-497) 01/09/19 12:10 % Saturation 15 % (15-50) 01/09/19 12:10 Transferrin 407 mg/dL (206-381) H 01/09/19 12:10 Ferritin 6.8 ng/mL (11.1-264) L 01/09/19 12:10 Total Bilirubin 0.5 mg/dL (0.2-1.3) 01/09/19 12:10 AST 29 IU/L (14-36) 01/09/19 12:10 ALT 38 IU/L (9-52) 01/09/19 12:10 Alkaline Phosphatase 78 U/L (38-126) 01/09/19 12:10 Lactate Dehydrogenase 339 U/L (313-618) 01/09/19 12:10 Serum Total Protein 7.4 g/dL (6.1-8.1) 01/09/19 12:10 Total Protein 8.0 g/dL (6.3-8.2) 01/09/19 12:10 Albumin 4.5 g/dL (3.8-4.8) 01/09/19 12:10 Globulin 3.0 g/dL (1.7-4.1) 01/09/19 12:10 Albumin/Globulin Ratio 1.7 (1.0-2.8) 01/09/19 12:10 Wsynx-9-Mdyjpgiaq 0.3 g/dL (0.2-0.3) 01/09/19 12:10 Ivxhx-5-Hwlziudkr 0.7 g/dL (0.5-0.9) 01/09/19 12:10 Pivn-7-Sgamysdu 0.6 g/dL (0.4-0.6) 01/09/19 12:10 [place]-3-Ppmmyzoo 0.3 g/dL (0.2-0.5) 01/09/19 12:10 Hdas-7-Bompfpwbtynom 1.93 mg/L (< 2.52) 01/09/19 12:10 Gamma Globulins 1.0 g/dL (0.8-1.7) 01/09/19 12:10 Abnorm Protein Band 1 0.2 g/dL (NONE DETECTED) A 01/09/19 12:10 Abnorm Protein Band 2 Not Reportable 01/09/19 12:10 Abn Gamma Band 3 Serum Not Reportable 01/09/19 12:10 PEP Comment See note 01/09/19 12:10 Vitamin B12 664 pg/mL (239-931) 01/09/19 12:10 Folate 11.7 ng/mL (2.76-20.0) 01/09/19 12:10 TSH 1.74 uIU/mL (0.47-4.68) 01/09/19 12:10 LEV & SPEP Interp See note 01/09/19 12:10 - Imaging Additional studies: Procedures Administration of ldcptmghto-ujroxvo-duxyqqdbq, combined (10/04/13) Assessment and Plan (1) Hypochromic microcytic anemia Patient has a long history of chronic anemia which is characterized by hypochromic and microcystic anemia. Studies from October 2018 showed that the ferritin level was only 9.3 consistent with iron deficiency anemia. Patient denies any bleeding history recently. But she did report a remote history of gastric ulcer bleeding with perforation requiring exploratory laparotomy and surgical resection ?of the 2 ulcers in the stomach, part of the colon, and part of the intestines?. I am suspicious that these surgical procedures might be the reason for malabsorption of the oral irons. She came here today to review the lab test results Today, I reviewed the laboratory tests with the patient. Patient has severe iron deficient even though she only showed mild to moderate anemia. I talked with the patient that I would recommend intravenous iron infusion given the fact that her iron storage is low despite that she is taking oral iron pills. Patient voiced understanding. In addition I also reviewed the serum protein electrophoresis results. There is an abnormal protein band detected at about 0.2 grams/deciliter. I talked with the patient that I will proceed with immunofixation studies to confirm the identity of the abnormal protein. If it is abnormal, patient will need bone marrow aspiration and biopsy. Plan: 1. MM panel 2. Venofer 200 mg iv weekly x 5, starting 01/22/2019 3. RTC in 2 months for follow up CBC, CMP, Iron panel, Ferritin, Haptoglobin, LDH, Mg, B2M, TSH, Folate, B12 and SPEP
--- NOTE | 2019-01-15 13:33 | P.PNONC_ITS ---
PN -Subjective Interval history: Amor Crow is a 48 year old female. She said she has been anemic all her life. She tried iron pills but had to stop because of stomach upset. Patient recalled that in 1999, patient had a perforated gastric ulcer which presumably precipitated by use of ibuprofen. she had blood transfusion, and underwent expl oratory laparotomy. They removed the two stomach ulcers, part of the colon, part of the intestines. After the surgery, she has never had any bleeding issue anymore. She has been followed by Dr. Wills. Recently, she was hospitalized for flu like symptoms and chest pressure. She was found to have a hemoglobin level of 4.3 and iron panel and ferritin demonstrated iron deficiency anemia. Patient received 2 units of blood transfusion and then was started on ferrous sulfate 325 mg once daily. Patient was discharged from the hospital and presents here today for post discharge follow-up visit. She said that she is a little tired. She has lower back pain, has been present all her life, recently got worse. She has shortness of breath at times and has to take inhaler albuterol. No chest pain. She has nausea but no vomiting. She has abdominal pain here and there. No blood in the stool. No blood in the urine. She has been post menopause for the past 5 years. - Patient Self-Reported Symptoms SR Constitution: Night Sweats SR eye issues: Vision changes, Eye pain SR ears, nose, mouth, throat issues: Ears ringing, Congestion, Bleeding gums, Hoarseness SR respiratory issues: Mucous SR Cardiovascular issues: Shortness of breath with activity or lying flat, Dizzy/lightheaded SR Skin issues: Dry skin, Skin rash or itching, Skin lesions or moles, Nail changes SR Gastrointestinal issues: Nausea, Abdominal pain SR Musculoskeletal issues: Muscle pain or cramps, Back or neck pain, Cold hands or feet SR Neuro issues: Headache, Lightheaded/dizzy, Numbness or tingling SR Hematologic issues: Bleeding/bruising SR Endocrine issues: Hot flashes - Additional ROS All systems PM: reviewed and no additional remarkable complaints except as stated Home Medications and Allergies Home Medications Medication Instructions Recorded Confirmed Type Vicks Vaporub 1 applic TOPICAL PRN PRN 11/13/18 01/15/19 History acetaminophen 650 mg PO Q6HR PRN #30 tab 11/16/18 01/15/19 Rx guaifenesin [Mucinex] 1,200 mg PO Q12H #30 tab 11/16/18 01/15/19 Rx omeprazole 20 mg PO DAILY #30 cap 11/16/18 01/15/19 Rx pseudoephedrine HCl 30 mg PO Q6HR PRN #30 tab 11/16/18 01/15/19 Rx albuterol sulfate HFA 90 2 puff INHALATION Q6H PRN #18 gram 11/17/18 01/15/19 Rx mcg/actuation aerosol inhaler ascorbic acid (vitamin C) 1,000 mg 1 gram PO DAILY tab 11/17/18 01/15/19 History tablet cholecalciferol (vitamin D3) 1,000 1,000 unit PO DAILY 11/17/18 01/15/19 History unit capsule docusate sodium 100 mg capsule 100 mg PO DAILY 11/17/18 01/15/19 History ferrous sulfate 325 mg (65 mg 325 mg PO BID #60 tab 12/08/18 01/15/19 Rx iron) tablet cyclobenzaprine 5 mg tablet 5 mg PO BEDTIME PRN #10 tab 12/18/18 01/15/19 Rx cyclobenzaprine 10 mg tablet 10 mg PO BID PRN #30 tab 01/02/19 01/15/19 Rx Allergies Allergy/AdvReac Type Severity Reaction Status Date / Time sumatriptan Allergy Severe Anaphylaxis Verified 11/17/18 15:33 codeine Allergy Intermediate Hives Verified 11/17/18 15:33 dihydroergotamine Allergy Unknown Verified 11/17/18 15:33 Exam Vital signs: Vital Signs Temp Pulse Resp BP Pulse Ox 01/15/19 13:08 98.7 F 69 16 126/71 100 Intake and Output 01/14/19 01/15/19 01/15/19 23:59 07:59 15:59 Other: Weight 55.5 kg Patient Weight 01/15/19 23:59 Weight 55.5 kg Narrative: Gen: WD, thin, NAD, pleasant and cooperative, accompanied by her . HEENT: NCAT, EOMI, PERRLA, anicteric sclera. Neck: Supple, No palpable thyromegaly or lymphadenopathy. Respiratory: CTAB, no wheezes audible. No JVD Cardiovascular: RRR, S1 and S2 normal, no M/G/R. Abdomen: Soft, mild tenderness under the epigastric area, no rebound. BS normal, no palpable organomegaly Extremities: No LE pitting edema. Lymphatic: no palpable lymph nodes in the neck, axillae, or groins. Neurological: AOx3, CN II-XII grossly intact. No focal motor or sensory deficit. Psychiatric: Good judgment and insight; normal affect; normal thought process; cooperative, no depression, no anxiety. Results - Labs Laboratory Last Values WBC 8.0 X10^3/uL (4.5-11.0) 01/09/19 12:10 RBC 4.78 X10^6/uL (4.0-5.2) 01/09/19 12:10 Hgb 11.7 g/dL (12.0-16.0) L 01/09/19 12:10 Hct 37.0 % (36-46) 01/09/19 12:10 MCV 77.4 fL (80-100) L 01/09/19 12:10 MCH 24.5 PG (26-34) L 01/09/19 12:10 MCHC 31.7 % (30-36) 01/09/19 12:10 RDW 23.8 % (11.6-14.8) H 01/09/19 12:10 Plt Count 208 X10^3/uL (150-400) 01/09/19 12:10 Neut % (Auto) 78.1 % (50-75) H 01/09/19 12:10 Lymph % (Auto) 13.7 % (25-40) L 01/09/19 12:10 [place] % (Auto) 5.9 % (3-14) 01/09/19 12:10 Eos % (Auto) 1.7 % (2-4) L 01/09/19 12:10 Baso % (Auto) 0.6 % (0-2) 01/09/19 12:10 Neut # (Auto) 6200 /uL (3500-8849) 01/09/19 12:10 Lymph # (Auto) 1100 /uL (6643-6038) 01/09/19 12:10 [place] # (Auto) 500 /uL (0-900) 01/09/19 12:10 Eos # (Auto) 100 /uL (0-450) 01/09/19 12:10 Baso # (Auto) 0 /uL (0-100) 01/09/19 12:10 RBC Morphology See below 01/09/19 12:10 Hypochromasia 2+ H 01/09/19 12:10 Poikilocytosis 1+ H 01/09/19 12:10 Anisocytosis 2+ H 01/09/19 12:10 Microcytosis 2+ H 01/09/19 12:10 Haptoglobin 137 mg/dL (43-212) 01/09/19 12:10 Sodium 140 mmol/L (137-145) 01/09/19 12:10 Potassium 3.8 mmol/L (3.4-5.1) 01/09/19 12:10 Chloride 99 mmol/L (98-107) 01/09/19 12:10 Carbon Dioxide 29 mmol/L (22-32) 01/09/19 12:10 BUN 9 mg/dL (7-17) 01/09/19 12:10 Creatinine 0.70 mg/dL (0.52-1.04) 01/09/19 12:10 Estimated GFR > 60.0 mL/min (>60) 01/09/19 12:10 BUN/Creatinine Ratio 12.9 (6-22) 01/09/19 12:10 Glucose 97 mg/dL (70-100) 01/09/19 12:10 Calcium 10.0 mg/dL (8.4-10.2) 01/09/19 12:10 Magnesium 1.8 mg/dL (1.6-2.3) 01/09/19 12:10 Iron 75 ug/dL (37-170) 01/09/19 12:10 TIBC 491 ug/dL (265-497) 01/09/19 12:10 % Saturation 15 % (15-50) 01/09/19 12:10 Transferrin 407 mg/dL (206-381) H 01/09/19 12:10 Ferritin 6.8 ng/mL (11.1-264) L 01/09/19 12:10 Total Bilirubin 0.5 mg/dL (0.2-1.3) 01/09/19 12:10 AST 29 IU/L (14-36) 01/09/19 12:10 ALT 38 IU/L (9-52) 01/09/19 12:10 Alkaline Phosphatase 78 U/L (38-126) 01/09/19 12:10 Lactate Dehydrogenase 339 U/L (313-618) 01/09/19 12:10 Serum Total Protein 7.4 g/dL (6.1-8.1) 01/09/19 12:10 Total Protein 8.0 g/dL (6.3-8.2) 01/09/19 12:10 Albumin 4.5 g/dL (3.8-4.8) 01/09/19 12:10 Globulin 3.0 g/dL (1.7-4.1) 01/09/19 12:10 Albumin/Globulin Ratio 1.7 (1.0-2.8) 01/09/19 12:10 Uykrh-1-Pbxboiwzo 0.3 g/dL (0.2-0.3) 01/09/19 12:10 Bnjjk-0-Exauumvpu 0.7 g/dL (0.5-0.9) 01/09/19 12:10 Tvoq-5-Agqgntbf 0.6 g/dL (0.4-0.6) 01/09/19 12:10 Hrgi-0-Sswexfpu 0.3 g/dL (0.2-0.5) 01/09/19 12:10 Bsgd-8-Vewgyxeuwwzec 1.93 mg/L (< 2.52) 01/09/19 12:10 Gamma Globulins 1.0 g/dL (0.8-1.7) 01/09/19 12:10 Abnorm Protein Band 1 0.2 g/dL (NONE DETECTED) A 01/09/19 12:10 Abnorm Protein Band 2 Not Reportable 01/09/19 12:10 Abn Gamma Band 3 Serum Not Reportable 01/09/19 12:10 PEP Comment See note 01/09/19 12:10 Vitamin B12 664 pg/mL (239-931) 01/09/19 12:10 Folate 11.7 ng/mL (2.76-20.0) 01/09/19 12:10 TSH 1.74 uIU/mL (0.47-4.68) 01/09/19 12:10 LEV & SPEP Interp See note 01/09/19 12:10 - Imaging Additional studies: Procedures Administration of ghemcazpmz-atvzogd-ahqzmfvkl, combined (10/04/13) Assessment and Plan (1) Hypochromic microcytic anemia Patient has a long history of chronic anemia which is characterized by hypochrom ic and microcystic anemia. Studies from October 2018 showed that the ferritin level was only 9.3 consistent with iron deficiency anemia. Patient denies any bleeding history recently. But she did report a remote history of gastric ulcer bleeding with perforation requiring exploratory laparotomy and surgical resection ?of the 2 ulcers in the stomach, part of the colon, and part of the intestines?. I am suspicious that these surgical procedures might be the reason for malabsorption of the oral irons. She came here today to review the lab test results Today, I reviewed the laboratory tests with the patient. Patient has severe iron deficient even though she only showed mild to moderate anemia. I talked with the patient that I would recommend intravenous iron infusion given the fact that her iron storage is low despite that she is taking oral iron pills. Patient voiced understanding. In addition I also reviewed the serum protein electrophoresis results. There is an abnormal protein band detected at about 0.2 grams/deciliter. I talked with the patient that I will proceed with immunofixation studies to confirm the identity of the abnormal protein. If it is abnormal, patient will need bone marrow aspiration and biopsy. Plan: 1. MM panel 2. Venofer 200 mg iv weekly x 5, starting 01/22/2019 3. RTC in 2 months for follow up CBC, CMP, Iron panel, Ferritin, Haptoglobin, LDH, Mg, B2M, TSH, Folate, B12 and SPEP
[2019-01-15 14:44] LABS: Alanine Aminotransferase 25 IU/L (9-52); Albumin 4.9 g/dL (3.5-5.0); Albumin Globulin Ratio 1.6 (1.0-2.8); Alkaline Phosphatase 79 U/L (38-126); Aspartate Aminotransferase 25 IU/L (14-36); BUN Creatinine Ratio 14.3 (6-22); Bilirubin Total 0.3 mg/dL (0.2-1.3); Blood Urea Nitrogen 10 mg/dL (7-17); Calcium 9.9 mg/dL (8.4-10.2); Carbon Dioxide 30 mmol/L (22-32); Chloride 97 mmol/L (98-107); Estimated Glomerular Filt Rate > 60.0 mL/min (>60); Globulin 3.1 g/dL (1.7-4.1); Glucose 86 mg/dL (70-100); HEMOLYSIS < 15 (0-50); Lactate Dehydrogenase 341 U/L (313-618); Potassium 4.5 mmol/L (3.4-5.1); Sodium 139 mmol/L (137-145)
[2019-01-15 15:21] LABS: Add Manual Diff / Slide Review NO; Basophils Absolute Auto 100 /uL (0-100); Basophils Percent Auto 0.9 % (0-2); Eosinophils Absolute Auto 100 /uL (0-450); Eosinophils Percent Auto 2.1 % (2-4); Hematocrit 36.6 % (36-46); Hemoglobin 11.6 g/dL (12.0-16.0); Lymphocytes Absolute Auto 1100 /uL (1100-4500); Lymphocytes Percent Auto 17.5 % (25-40); Mean Corpuscular HGB Conc 31.7 % (30-36); Mean Corpuscular Hemoglobin 24.9 PG (26-34); Mean Corpuscular Volume 78.3 fL (80-100); Monocytes Absolute Auto 500 /uL (0-900); Monocytes Percent Auto 7.8 % (3-14); Neutrophils Absolute Auto 4500 /uL (1500-7000); Neutrophils Percent Auto 71.7 % (50-75); Platelet Count 289 X10^3/uL (150-400); Red Blood Cell Count 4.67 X10^6/uL (4.0-5.2); White Blood Cell Count 6.3 X10^3/uL (4.5-11.0)
[2019-01-15 15:50] LABS: Anisocytosis 2+; Microcytosis 1+; Poikilocytosis 1+; Spherocytes 1+
[2019-01-15 15:51] LABS: Hypochromasia 1+
[2019-01-17 14:08] LABS: Immunoglobulin A 160 mg/dL (81-463); Immunoglobulin G, Quantitative 928 mg/dL (694-1618); Immunoglobulin M, Quantitative 251 mg/dL (48-271)
[2019-01-17 16:51] LABS: Free Kappa Light Chain 15.5 mg/L (3.3-19.4); Free Kappa/ Lambda Ratio 1.02 (0.26-1.65); Free Lambda 15.2 mg/L (5.7-26.3)
[2019-01-19 00:45] LABS: Abnormal Protein Band 1 0.2 g/dL (NONE DETECTED); Albumin 4.3 g/dL (3.8-4.8); Alpha 1 Globulin 0.3 g/dL (0.2-0.3); Alpha 2 Globulin 0.8 g/dL (0.5-0.9); Beta 1 Globulin 0.5 g/dL (0.4-0.6); Protein, Total 7.2 g/dL (6.1-8.1)
[2019-01-22 12:47] VITALS: BP 109/69; PULSE 68; RESP 16; TEMP 36.9
[2019-01-22] MEDS: IRON SUCROSE 200 MG in SODIUM CHLORIDE 0.9% 100 ML 220 ML IV (12:59)
--- NOTE | 2019-01-29 11:50 | ONC.SCHED ---
's office working on [employer] Auth extension
[2019-01-29 12:01] VITALS: BP 112/59; PULSE 78; RESP 16; TEMP 36.8; O2SAT 97
[2019-01-29] MEDS: IRON SUCROSE 200 MG in SODIUM CHLORIDE 0.9% 100 ML 220 ML IV (12:08)
[2019-02-05] MEDS: IRON SUCROSE 200 MG in SODIUM CHLORIDE 0.9% 100 ML 220 ML IV (12:16)
[2019-02-05 12:17] VITALS: BP 117/67; PULSE 80; RESP 18; TEMP 36.9; O2SAT 99
[2019-02-12 11:52] VITALS: BP 122/74; PULSE 77; RESP 16; TEMP 36.8
[2019-02-12] MEDS: IRON SUCROSE 200 MG in SODIUM CHLORIDE 0.9% 100 ML 220 ML IV (11:59)
--- NOTE | 2019-02-15 08:39 | ONC.SCHED ---
[facility] website no auth required for Iron as long as auth is in place for clinic.
[2019-02-20] MEDS: IRON SUCROSE 200 MG in SODIUM CHLORIDE 0.9% 100 ML 220 ML IV (12:04)
[2019-02-20 12:48] VITALS: BP 113/72; PULSE 103; RESP 16; TEMP 36.7; O2SAT 97
[2019-03-12 14:57] VITALS: BP 129/87; PULSE 70; RESP 16; TEMP 35.9; O2SAT 99
--- NOTE | 2019-03-12 15:20 | ONC.PN ---
PN -Subjective Interval history: Diagnosis: Iron deficiency anemia Previous treatment: IV iron Interval history: Amor Crow is a 48 year old female. She returns today for follow-up. Since her last visit here, she has completed IV iron infusions. She notes that she has been gaining weight and feeling stronger although she still feels somewhat weak and tired. She has occasional episodes of dizziness. She does note some dyspnea on exertion although it is not as bad as it had been previously. No fevers chills or sweats. She has not had any nausea or vomiting. She does continue to take some ferrous sulfate 1 tablet twice daily. She has not noticed any GI upset with this. She denies any other changes in her health. - Patient Self-Reported Symptoms SR Constitution: Weight loss/gain, Night Sweats SR eye issues: Vision changes, Eye pain SR ears, nose, mouth, throat issues: Ears ringing, Bleeding gums, Hoarseness SR respiratory issues: Mucous SR Cardiovascular issues: Dizzy/lightheaded SR Skin issues: Dry skin SR Gastrointestinal issues: Nausea SR Musculoskeletal issues: Muscle pain or cramps, Back or neck pain SR Neuro issues: Headache, Lightheaded/dizzy, Numbness or tingling SR Hematologic issues: Bleeding/bruising SR Endocrine issues: Hot flashes Home Medications and Allergies Home Medications Medication Instructions Recorded Confirmed Type Vicveronica Vaporub 1 applic TOPICAL PRN PRN 11/13/18 03/12/19 History acetaminophen 650 mg PO Q6HR PRN #30 tab 11/16/18 03/12/19 Rx guaifenesin [Mucinex] 1,200 mg PO Q12H #30 tab 11/16/18 03/12/19 Rx pseudoephedrine HCl 30 mg PO Q6HR PRN #30 tab 11/16/18 03/12/19 Rx albuterol sulfate HFA 90 2 puff INHALATION Q6H PRN #18 gram 11/17/18 03/12/19 Rx mcg/actuation aerosol inhaler ascorbic acid (vitamin C) 1,000 mg 1 gram PO DAILY tab 11/17/18 03/12/19 History tablet cholecalciferol (vitamin D3) 1,000 1,000 unit PO DAILY 11/17/18 03/12/19 History unit capsule docusate sodium 100 mg capsule 100 mg PO DAILY 11/17/18 03/12/19 History cyclobenzaprine 10 mg tablet 10 mg PO BID PRN #60 tab 01/17/19 03/12/19 Rx omeprazole 20 mg capsule,delayed 20 mg PO DAILY #30 cap 01/24/19 03/12/19 Rx release ferrous sulfate 325 mg (65 mg 325 mg PO BID #60 tab 02/12/19 03/12/19 Rx iron) tablet cyclobenzaprine 5 mg tablet 5 mg PO BEDTIME PRN #10 tab 02/26/19 03/12/19 Rx Allergies Allergy/AdvReac Type Severity Reaction Status Date / Time sumatriptan Allergy Severe Anaphylaxis Verified 11/17/18 15:33 codeine Allergy Intermediate Hives Verified 11/17/18 15:33 dihydroergotamine Allergy Unknown Verified 11/17/18 15:33 Exam Vital signs: Vital Signs Temp Pulse Resp BP Pulse Ox 03/12/19 14:57 96.7 F L 70 16 129/87 99 Intake and Output 03/11/19 03/12/19 03/12/19 23:59 07:59 15:59 Other: Weight 60.7 kg Patient Weight 03/12/19 23:59 Weight 60.7 kg - Constitutional positive no acute distress, positive average body habitus - Routine HEENT Exam Head: Present: normocephalic, atraumatic Eye: Present: EOMI, PERRL. Absent: conjunctival icterus, scleral injection ENT: Present: mucous membranes moist, oropharynx clear - Routine Neck Exam Present: supple. Absent: lymphadenopathy, thyromegaly - Routine Respiratory Exam Present: Clear to auscultation bilaterally. Absent: rales, wheezes - Routine Cardiovascular Exam Present: RRR, S1, S2. Absent: murmur - Routine Abdominal Exam Present: soft, normoactive bowel sounds. Absent: tenderness, organomegaly, mass - Routine Extremities Exam Absent: cyanosis, clubbing, edema - Routine Skin Exam Present: intact. Absent: petechiae, rash - Routine Neurological Exam Present: alert, oriented X3 - Routine Psychiatric Exam Present: normal affect, normal thought process Results - Labs Laboratory Last Values WBC 6.3 X10^3/uL (4.5-11.0) 01/15/19 14:02 RBC 4.67 X10^6/uL (4.0-5.2) 01/15/19 14:02 Hgb 11.6 g/dL (12.0-16.0) L 01/15/19 14:02 Hct 36.6 % (36-46) 01/15/19 14:02 MCV 78.3 fL (80-100) L 01/15/19 14:02 MCH 24.9 PG (26-34) L 01/15/19 14:02 MCHC 31.7 % (30-36) 01/15/19 14:02 RDW 22.0 % (11.6-14.8) H 01/15/19 14:02 Plt Count 289 X10^3/uL (150-400) 01/15/19 14:02 Neut % (Auto) 71.7 % (50-75) 01/15/19 14:02 Lymph % (Auto) 17.5 % (25-40) L 01/15/19 14:02 [place] % (Auto) 7.8 % (3-14) 01/15/19 14:02 Eos % (Auto) 2.1 % (2-4) 01/15/19 14:02 Baso % (Auto) 0.9 % (0-2) 01/15/19 14:02 Neut # (Auto) 4500 /uL (3376-7339) 01/15/19 14:02 Lymph # (Auto) 1100 /uL (8129-9789) 01/15/19 14:02 [place] # (Auto) 500 /uL (0-900) 01/15/19 14:02 Eos # (Auto) 100 /uL (0-450) 01/15/19 14:02 Baso # (Auto) 100 /uL (0-100) 01/15/19 14:02 RBC Morphology See below 01/15/19 14:02 Hypochromasia 1+ H 01/15/19 14:02 Poikilocytosis 1+ H 01/15/19 14:02 Anisocytosis 2+ H 01/15/19 14:02 Microcytosis 1+ H 01/15/19 14:02 Spherocytes 1+ H 01/15/19 14:02 Haptoglobin 137 mg/dL (43-212) 01/09/19 12:10 Sodium 139 mmol/L (137-145) 01/15/19 14:02 Potassium 4.5 mmol/L (3.4-5.1) 01/15/19 14:02 Chloride 97 mmol/L (98-107) L 01/15/19 14:02 Carbon Dioxide 30 mmol/L (22-32) 01/15/19 14:02 BUN 10 mg/dL (7-17) 01/15/19 14:02 Creatinine 0.70 mg/dL (0.52-1.04) 01/15/19 14:02 Estimated GFR > 60.0 mL/min (>60) 01/15/19 14:02 BUN/Creatinine Ratio 14.3 (6-22) 01/15/19 14:02 Glucose 86 mg/dL (70-100) 01/15/19 14:02 Calcium 9.9 mg/dL (8.4-10.2) 01/15/19 14:02 Magnesium 1.8 mg/dL (1.6-2.3) 01/09/19 12:10 Iron 75 ug/dL (37-170) 01/09/19 12:10 TIBC 491 ug/dL (265-497) 01/09/19 12:10 % Saturation 15 % (15-50) 01/09/19 12:10 Transferrin 407 mg/dL (206-381) H 01/09/19 12:10 Ferritin 6.8 ng/mL (11.1-264) L 01/09/19 12:10 Total Bilirubin 0.3 mg/dL (0.2-1.3) 01/15/19 14:02 AST 25 IU/L (14-36) 01/15/19 14:02 ALT 25 IU/L (9-52) 01/15/19 14:02 Alkaline Phosphatase 79 U/L (38-126) 01/15/19 14:02 Lactate Dehydrogenase 341 U/L (313-618) 01/15/19 14:02 Serum Total Protein 7.2 g/dL (6.1-8.1) 01/15/19 14:02 Total Protein 8.0 g/dL (6.3-8.2) 01/15/19 14:02 Albumin 4.3 g/dL (3.8-4.8) 01/15/19 14:02 Globulin 3.1 g/dL (1.7-4.1) 01/15/19 14:02 Albumin/Globulin Ratio 1.6 (1.0-2.8) 01/15/19 14:02 Nhtem-7-Vfrsdqjge 0.3 g/dL (0.2-0.3) 01/15/19 14:02 Mzpnp-6-Iwznkexge 0.8 g/dL (0.5-0.9) 01/15/19 14:02 Ildp-7-Soiiiljj 0.5 g/dL (0.4-0.6) 01/15/19 14:02 Pqdp-6-Psovjrli 0.3 g/dL (0.2-0.5) 01/15/19 14:02 Uzmu-2-Sawchgpjprpyd 2.20 mg/L (< 2.52) 01/15/19 14:02 Gamma Globulins 1.0 g/dL (0.8-1.7) 01/15/19 14:02 Abnorm Protein Band 1 0.2 g/dL (NONE DETECTED) A 01/15/19 14:02 Abnorm Protein Band 2 Not Reportable 01/15/19 14:02 Abn Gamma Band 3 Serum Not Reportable 01/15/19 14:02 PEP Comment See note 01/15/19 14:02 Vitamin B12 664 pg/mL (239-931) 01/09/19 12:10 Folate 11.7 ng/mL (2.76-20.0) 01/09/19 12:10 TSH 1.74 uIU/mL (0.47-4.68) 01/09/19 12:10 IgG, Serum (MS) 928 mg/dL (694-1618) 01/15/19 14:02 IgA 160 mg/dL (81-463) 01/15/19 14:02 IgM 251 mg/dL (48-271) 01/15/19 14:02 LEV & SPEP Interp See note 01/15/19 14:02 Free [place] Light Chains 15.5 mg/L (3.3-19.4) 01/15/19 14:02 Free Lambda Light Chain 15.2 mg/L (5.7-26.3) 01/15/19 14:02 Free [place]/Lambda Ratio 1.02 (0.26-1.65) 01/15/19 14:02 - Imaging Additional studies: Procedures Administration of eretwgbgss-ispefrq-jkcmypyrd, combined (10/04/13) Assessment and Plan (1) Hypochromic microcytic anemia Patient has a long history of chronic anemia which is characterized by hypochromic and microcystic anemia. Her CBC has normalized with IV iron in her hemoglobin hematocrit are currently normal. Her ferritin is normal as well. She will continue with oral iron. If she really is absorbing it, her anemia should not recur. If on the other hand, she is having difficulty absorbing, her ferritin should gradually drop over time and she may need further infusions later on. She did have endoscopy with no obvious source of bleeding found. She will return to clinic in about 6 months for follow-up.
--- NOTE | 2019-03-12 15:23 | P.PNONC_ITS ---
PN -Subjective Interval history: Diagnosis: Iron deficiency anemia Previous treatment: IV iron Interval history: Amor Crow is a 48 year old female. She returns today for follow-up. Since her last visit here, she has completed IV iron infusions. She notes that she has been gaining weight and feeling stronger although she still feels somewhat weak and tired. She has occasional episodes of dizziness. She does note some dyspnea on exertion although it is not as bad as it had been previously. No fevers chills or sweats. She has not had any nausea or vomiting. She does continue to take some ferrous sulfate 1 tablet twice daily. She has not noticed any GI upset with this. She denies any other changes in her health. - Patient Self-Reported Symptoms SR Constitution: Weight loss/gain, Night Sweats SR eye issues: Vision changes, Eye pain SR ears, nose, mouth, throat issues: Ears ringing, Bleeding gums, Hoarseness SR respiratory issues: Mucous SR Cardiovascular issues: Dizzy/lightheaded SR Skin issues: Dry skin SR Gastrointestinal issues: Nausea SR Musculoskeletal issues: Muscle pain or cramps, Back or neck pain SR Neuro issues: Headache, Lightheaded/dizzy, Numbness or tingling SR Hematologic issues: Bleeding/bruising SR Endocrine issues: Hot flashes Home Medications and Allergies Home Medications Medication Instructions Recorded Confirmed Type Vicveronica Vaporub 1 applic TOPICAL PRN PRN 11/13/18 03/12/19 History acetaminophen 650 mg PO Q6HR PRN #30 tab 11/16/18 03/12/19 Rx guaifenesin [Mucinex] 1,200 mg PO Q12H #30 tab 11/16/18 03/12/19 Rx pseudoephedrine HCl 30 mg PO Q6HR PRN #30 tab 11/16/18 03/12/19 Rx albuterol sulfate HFA 90 2 puff INHALATION Q6H PRN #18 gram 11/17/18 03/12/19 Rx mcg/actuation aerosol inhaler ascorbic acid (vitamin C) 1,000 mg 1 gram PO DAILY tab 11/17/18 03/12/19 History tablet cholecalciferol (vitamin D3) 1,000 1,000 unit PO DAILY 11/17/18 03/12/19 History unit capsule docusate sodium 100 mg capsule 100 mg PO DAILY 11/17/18 03/12/19 History cyclobenzaprine 10 mg tablet 10 mg PO BID PRN #60 tab 01/17/19 03/12/19 Rx omeprazole 20 mg capsule,delayed 20 mg PO DAILY #30 cap 01/24/19 03/12/19 Rx release ferrous sulfate 325 mg (65 mg 325 mg PO BID #60 tab 02/12/19 03/12/19 Rx iron) tablet cyclobenzaprine 5 mg tablet 5 mg PO BEDTIME PRN #10 tab 02/26/19 03/12/19 Rx Allergies Allergy/AdvReac Type Severity Reaction Status Date / Time sumatriptan Allergy Severe Anaphylaxis Verified 11/17/18 15:33 codeine Allergy Intermediate Hives Verified 11/17/18 15:33 dihydroergotamine Allergy Unknown Verified 11/17/18 15:33 Exam Vital signs: Vital Signs Temp Pulse Resp BP Pulse Ox 03/12/19 14:57 96.7 F L 70 16 129/87 99 Intake and Output 03/11/19 03/12/19 03/12/19 23:59 07:59 15:59 Other: Weight 60.7 kg Patient Weight 03/12/19 23:59 Weight 60.7 kg - Constitutional positive no acute distress, positive average body habitus - Routine HEENT Exam Head: Present: normocephalic, atraumatic Eye: Present: EOMI, PERRL. Absent: conjunctival icterus, scleral injection ENT: Present: mucous membranes moist, oropharynx clear - Routine Neck Exam Present: supple. Absent: lymphadenopathy, thyromegaly - Routine Respiratory Exam Present: Clear to auscultation bilaterally. Absent: rales, wheezes - Routine Cardiovascular Exam Present: RRR, S1, S2. Absent: murmur - Routine Abdominal Exam Present: soft, normoactive bowel sounds. Absent: tenderness, organomegaly, mass - Routine Extremities Exam Absent: cyanosis, clubbing, edema - Routine Skin Exam Present: intact. Absent: petechiae, rash - Routine Neurological Exam Present: alert, oriented X3 - Routine Psychiatric Exam Present: normal affect, normal thought process Results - Labs Laboratory Last Values WBC 6.3 X10^3/uL (4.5-11.0) 01/15/19 14:02 RBC 4.67 X10^6/uL (4.0-5.2) 01/15/19 14:02 Hgb 11.6 g/dL (12.0-16.0) L 01/15/19 14:02 Hct 36.6 % (36-46) 01/15/19 14:02 MCV 78.3 fL (80-100) L 01/15/19 14:02 MCH 24.9 PG (26-34) L 01/15/19 14:02 MCHC 31.7 % (30-36) 01/15/19 14:02 RDW 22.0 % (11.6-14.8) H 01/15/19 14:02 Plt Count 289 X10^3/uL (150-400) 01/15/19 14:02 Neut % (Auto) 71.7 % (50-75) 01/15/19 14:02 Lymph % (Auto) 17.5 % (25-40) L 01/15/19 14:02 [place] % (Auto) 7.8 % (3-14) 01/15/19 14:02 Eos % (Auto) 2.1 % (2-4) 01/15/19 14:02 Baso % (Auto) 0.9 % (0-2) 01/15/19 14:02 Neut # (Auto) 4500 /uL (6772-2089) 01/15/19 14:02 Lymph # (Auto) 1100 /uL (5214-2099) 01/15/19 14:02 [place] # (Auto) 500 /uL (0-900) 01/15/19 14:02 Eos # (Auto) 100 /uL (0-450) 01/15/19 14:02 Baso # (Auto) 100 /uL (0-100) 01/15/19 14:02 RBC Morphology See below 01/15/19 14:02 Hypochromasia 1+ H 01/15/19 14:02 Poikilocytosis 1+ H 01/15/19 14:02 Anisocytosis 2+ H 01/15/19 14:02 Microcytosis 1+ H 01/15/19 14:02 Spherocytes 1+ H 01/15/19 14:02 Haptoglobin 137 mg/dL (43-212) 01/09/19 12:10 Sodium 139 mmol/L (137-145) 01/15/19 14:02 Potassium 4.5 mmol/L (3.4-5.1) 01/15/19 14:02 Chloride 97 mmol/L (98-107) L 01/15/19 14:02 Carbon Dioxide 30 mmol/L (22-32) 01/15/19 14:02 BUN 10 mg/dL (7-17) 01/15/19 14:02 Creatinine 0.70 mg/dL (0.52-1.04) 01/15/19 14:02 Estimated GFR > 60.0 mL/min (>60) 01/15/19 14:02 BUN/Creatinine Ratio 14.3 (6-22) 01/15/19 14:02 Glucose 86 mg/dL (70-100) 01/15/19 14:02 Calcium 9.9 mg/dL (8.4-10.2) 01/15/19 14:02 Magnesium 1.8 mg/dL (1.6-2.3) 01/09/19 12:10 Iron 75 ug/dL (37-170) 01/09/19 12:10 TIBC 491 ug/dL (265-497) 01/09/19 12:10 % Saturation 15 % (15-50) 01/09/19 12:10 Transferrin 407 mg/dL (206-381) H 01/09/19 12:10 Ferritin 6.8 ng/mL (11.1-264) L 01/09/19 12:10 Total Bilirubin 0.3 mg/dL (0.2-1.3) 01/15/19 14:02 AST 25 IU/L (14-36) 01/15/19 14:02 ALT 25 IU/L (9-52) 01/15/19 14:02 Alkaline Phosphatase 79 U/L (38-126) 01/15/19 14:02 Lactate Dehydrogenase 341 U/L (313-618) 01/15/19 14:02 Serum Total Protein 7.2 g/dL (6.1-8.1) 01/15/19 14:02 Total Protein 8.0 g/dL (6.3-8.2) 01/15/19 14:02 Albumin 4.3 g/dL (3.8-4.8) 01/15/19 14:02 Globulin 3.1 g/dL (1.7-4.1) 01/15/19 14:02 Albumin/Globulin Ratio 1.6 (1.0-2.8) 01/15/19 14:02 Nzptx-1-Rodrjslgl 0.3 g/dL (0.2-0.3) 01/15/19 14:02 Qvovw-9-Vkttalmec 0.8 g/dL (0.5-0.9) 01/15/19 14:02 Aoky-4-Acjbyuic 0.5 g/dL (0.4-0.6) 01/15/19 14:02 Fqzc-1-Qfphyjzn 0.3 g/dL (0.2-0.5) 01/15/19 14:02 Jeem-4-Oasisjjxcuylr 2.20 mg/L (< 2.52) 01/15/19 14:02 Gamma Globulins 1.0 g/dL (0.8-1.7) 01/15/19 14:02 Abnorm Protein Band 1 0.2 g/dL (NONE DETECTED) A 01/15/19 14:02 Abnorm Protein Band 2 Not Reportable 01/15/19 14:02 Abn Gamma Band 3 Serum Not Reportable 01/15/19 14:02 PEP Comment See note 01/15/19 14:02 Vitamin B12 664 pg/mL (239-931) 01/09/19 12:10 Folate 11.7 ng/mL (2.76-20.0) 01/09/19 12:10 TSH 1.74 uIU/mL (0.47-4.68) 01/09/19 12:10 IgG, Serum (MS) 928 mg/dL (694-1618) 01/15/19 14:02 IgA 160 mg/dL (81-463) 01/15/19 14:02 IgM 251 mg/dL (48-271) 01/15/19 14:02 LEV & SPEP Interp See note 01/15/19 14:02 Free [place] Light Chains 15.5 mg/L (3.3-19.4) 01/15/19 14:02 Free Lambda Light Chain 15.2 mg/L (5.7-26.3) 01/15/19 14:02 Free [place]/Lambda Ratio 1.02 (0.26-1.65) 01/15/19 14:02 - Imaging Additional studies: Procedures Administration of rbgklrwfoh-emlstst-esytszlkd, combined (10/04/13) Assessment and Plan (1) Hypochromic microcytic anemia Patient has a long history of chronic anemia which is characterized by hypochromic and microcystic anemia. Her CBC has normalized with IV iron in her hemoglobin hematocrit are currently normal. Her ferritin is normal as well. She will continue with oral iron. If she really is absorbing it, her anemia should not recur. If on the other hand, she is having difficulty absorbing, her ferritin should gradually drop over time and she may need further infusions later on. She did have endoscopy with no obvious source of bleeding found. She will return to clinic in about 6 months for follow-up.
[2019-09-06 12:06] LABS: Add Manual Diff / Slide Review NO; Basophils Absolute Auto 100 /uL (0-100); Basophils Percent Auto 0.6 % (0-2); Eosinophils Absolute Auto 100 /uL (0-450); Eosinophils Percent Auto 1.1 % (2-4); Hematocrit 45.9 % (36-46); Hemoglobin 15.7 g/dL (12.0-16.0); Lymphocytes Absolute Auto 1100 /uL (1100-4500); Lymphocytes Percent Auto 11.6 % (25-40); Mean Corpuscular HGB Conc 34.3 % (30-36); Mean Corpuscular Hemoglobin 30.2 PG (26-34); Mean Corpuscular Volume 88.2 fL (80-100); Monocytes Absolute Auto 600 /uL (0-900); Monocytes Percent Auto 6.2 % (3-14); Neutrophils Absolute Auto 7500 /uL (1500-7000); Neutrophils Percent Auto 80.5 % (50-75); Platelet Count 319 X10^3/uL (150-400); Red Cell Distribution Width 14.4 % (11.6-14.8); White Blood Cell Count 9.3 X10^3/uL (4.5-11.0)
[2019-09-06 12:25] LABS: HEMOLYSIS < 15 (0-50); Iron 141 ug/dL (37-170)
[2019-09-06 12:28] LABS: Alanine Aminotransferase 81 IU/L (<35); Albumin 5.3 g/dL (3.5-5.0); Albumin Globulin Ratio 1.8 (1.0-2.8); Alkaline Phosphatase 89 U/L (38-126); Aspartate Aminotransferase 113 IU/L (14-36); Bilirubin Total 0.6 mg/dL (0.2-1.3); Blood Urea Nitrogen 4 mg/dL (7-17); Calcium 10.4 mg/dL (8.4-10.2); Carbon Dioxide 28 mmol/L (22-32); Chloride 97 mmol/L (98-107); Estimated Glomerular Filt Rate > 60.0 mL/min (>60); Globulin 2.9 g/dL (1.7-4.1); Glucose 88 mg/dL (70-100); HEMOLYSIS < 15 (0-50); Potassium 4.7 mmol/L (3.4-5.1); Sodium 139 mmol/L (137-145); Total Protein 8.2 g/dL (6.3-8.2)
[2019-09-06 12:36] LABS: Percent Iron Saturation 43 % (15-50); Total Iron Binding Capacity 328 ug/dL (265-497); Transferrin 298 mg/dL (206-381)
[2019-09-06 13:04] LABS: Ferritin 47.1 ng/mL (11.1-264)
[2019-09-08 13:37] LABS: Free Kappa Light Chain 10.6 mg/L (3.3-19.4); Free Kappa/ Lambda Ratio 0.91 (0.26-1.65); Free Lambda 11.6 mg/L (5.7-26.3)
[2019-09-10 14:28] VITALS: BP 137/80; PULSE 86; RESP 16; TEMP 36.9; O2SAT 99
--- NOTE | 2019-09-10 14:29 | P.PNONC_ITS ---
PN -Subjective Interval history: Diagnosis: Iron deficiency anemia Previous treatment: IV iron Interval history: Ferrous sulfate 325 mg daily. Energy level is all right. She denies blood in the stool. She denies any worsening shortness of breath or chest pain. She denies abdominal pain diarrhea. - Patient Self-Reported Symptoms SR Constitution: Weight loss/gain, Night Sweats SR eye issues: Vision changes, Eye pain SR ears, nose, mouth, throat issues: Ears ringing, Bleeding gums, Hoarseness SR respiratory issues: Mucous SR Cardiovascular issues: Dizzy/lightheaded SR Skin issues: Dry skin SR Gastrointestinal issues: Nausea SR Musculoskeletal issues: Muscle pain or cramps, Back or neck pain SR Neuro issues: Headache, Lightheaded/dizzy, Numbness or tingling SR Hematologic issues: Bleeding/bruising SR Endocrine issues: Hot flashes - Additional ROS All systems PM: reviewed and no additional remarkable complaints except as stated Home Medications and Allergies Home Medications Medication Instructions Recorded Confirmed Type Vicks Vaporub 1 applic TOPICAL PRN PRN 11/13/18 09/10/19 History acetaminophen 650 mg PO Q6HR PRN #30 tab 11/16/18 09/10/19 Rx guaifenesin [Mucinex] 1,200 mg PO Q12H #30 tab 11/16/18 09/10/19 Rx pseudoephedrine HCl 30 mg PO Q6HR PRN #30 tab 11/16/18 09/10/19 Rx albuterol sulfate 90 mcg/actuation 2 puff INHALATION Q6H PRN #18 gram 11/17/18 09/10/19 Rx aerosol inhaler ascorbic acid (vitamin C) 1,000 mg 1 gram PO DAILY tab 11/17/18 09/10/19 History tablet cholecalciferol (vitamin D3) 1,000 1,000 unit PO DAILY 11/17/18 09/10/19 History unit capsule docusate sodium 100 mg capsule 100 mg PO DAILY 11/17/18 09/10/19 History cyclobenzaprine 10 mg tablet 10 mg PO BID PRN #60 tab 01/17/19 09/10/19 Rx ferrous sulfate 325 mg (65 mg 325 mg PO BID #60 tab 02/12/19 09/10/19 Rx iron) tablet cyclobenzaprine 5 mg tablet 5 mg PO BEDTIME PRN #10 tab 02/26/19 09/10/19 Rx omeprazole 20 mg capsule,delayed 20 mg PO DAILY #30 cap 06/12/19 09/10/19 Rx release Allergies Allergy/AdvReac Type Severity Reaction Status Date / Time sumatriptan Allergy Severe Anaphylaxis Verified 11/17/18 15:33 codeine Allergy Intermediate Hives Verified 11/17/18 15:33 dihydroergotamine Allergy Unknown Verified 11/17/18 15:33 Exam Vital signs: Last Vital Signs Temp 98.4 F 09/10/19 14:28 Pulse 86 09/10/19 14:28 Resp 16 09/10/19 14:28 BP 137/80 09/10/19 14:28 Pulse Ox 99 09/10/19 14:28 ECOG 1 Narrative: Gen: WDWN, NAD, pleasant and cooperative. HEENT: NCAT, EOMI, PERRLA, anicteric sclera. Neck: Supple, No palpable thyromegaly or lymphadenopathy. Respiratory: CTAB, no wheezes audible. No JVD Cardiovascular: RRR, S1 and S2 normal, no M/G/R. Abdomen: Soft, NTND, BS normal, no palpable organomegaly Extremities: No LE pitting edema. Lymphatic: no palpable lymph nodes in the neck, axillae, or groins. Neurological: AOx3, CN II-XII grossly intact. No focal motor or sensory deficit. Psychiatric: Good judgment and insight; normal affect; normal thought process; cooperative, no depression, no anxiety. Results - Labs Laboratory Last Values WBC 9.3 X10^3/uL (4.5-11.0) 09/06/19 11:17 RBC 5.20 X10^6/uL (4.0-5.2) 09/06/19 11:17 Hgb 15.7 g/dL (12.0-16.0) 09/06/19 11:17 Hct 45.9 % (36-46) 09/06/19 11:17 MCV 88.2 fL (80-100) 09/06/19 11:17 MCH 30.2 PG (26-34) 09/06/19 11:17 MCHC 34.3 % (30-36) 09/06/19 11:17 RDW 14.4 % (11.6-14.8) 09/06/19 11:17 Plt Count 319 X10^3/uL (150-400) 09/06/19 11:17 Neut % (Auto) 80.5 % (50-75) H 09/06/19 11:17 Lymph % (Auto) 11.6 % (25-40) L 09/06/19 11:17 [place] % (Auto) 6.2 % (3-14) 09/06/19 11:17 Eos % (Auto) 1.1 % (2-4) L 09/06/19 11:17 Baso % (Auto) 0.6 % (0-2) 09/06/19 11:17 Neut # (Auto) 7500 /uL (3154-4950) H 09/06/19 11:17 Lymph # (Auto) 1100 /uL (0330-6895) 09/06/19 11:17 [place] # (Auto) 600 /uL (0-900) 09/06/19 11:17 Eos # (Auto) 100 /uL (0-450) 09/06/19 11:17 Baso # (Auto) 100 /uL (0-100) 09/06/19 11:17 RBC Morphology See below 01/15/19 14:02 Hypochromasia 1+ H 01/15/19 14:02 Poikilocytosis 1+ H 01/15/19 14:02 Anisocytosis 2+ H 01/15/19 14:02 Microcytosis 1+ H 01/15/19 14:02 Spherocytes 1+ H 01/15/19 14:02 Haptoglobin 137 mg/dL (43-212) 01/09/19 12:10 Sodium 139 mmol/L (137-145) 09/06/19 11:17 Potassium 4.7 mmol/L (3.4-5.1) 09/06/19 11:17 Chloride 97 mmol/L (98-107) L 09/06/19 11:17 Carbon Dioxide 28 mmol/L (22-32) 09/06/19 11:17 BUN 4 mg/dL (7-17) L 09/06/19 11:17 Creatinine 0.50 mg/dL (0.52-1.04) L 09/06/19 11:17 Estimated GFR > 60.0 mL/min (>60) 09/06/19 11:17 BUN/Creatinine Ratio 8.0 (6-22) 09/06/19 11:17 Glucose 88 mg/dL (70-100) 09/06/19 11:17 Calcium 10.4 mg/dL (8.4-10.2) H 09/06/19 11:17 Magnesium 1.8 mg/dL (1.6-2.3) 01/09/19 12:10 Iron 141 ug/dL (37-170) 09/06/19 11:17 TIBC 328 ug/dL (265-497) 09/06/19 11:17 % Saturation 43 % (15-50) 09/06/19 11:17 Transferrin 298 mg/dL (206-381) 09/06/19 11:17 Ferritin 47.1 ng/mL (11.1-264) 09/06/19 11:17 Total Bilirubin 0.6 mg/dL (0.2-1.3) 09/06/19 11:17 AST 113 IU/L (14-36) H 09/06/19 11:17 ALT 81 IU/L (<35) H 09/06/19 11:17 Alkaline Phosphatase 89 U/L (38-126) 09/06/19 11:17 Lactate Dehydrogenase 341 U/L (313-618) 01/15/19 14:02 Serum Total Protein 7.2 g/dL (6.1-8.1) 01/15/19 14:02 Total Protein 8.2 g/dL (6.3-8.2) 09/06/19 11:17 Albumin 5.3 g/dL (3.5-5.0) H 09/06/19 11:17 Globulin 2.9 g/dL (1.7-4.1) 09/06/19 11:17 Albumin/Globulin Ratio 1.8 (1.0-2.8) 09/06/19 11:17 Mxaex-5-Jbpfgwwre 0.3 g/dL (0.2-0.3) 01/15/19 14:02 Esaur-1-Titlgjwly 0.8 g/dL (0.5-0.9) 01/15/19 14:02 Hguj-0-Wzrxkfyb 0.5 g/dL (0.4-0.6) 01/15/19 14:02 Mwea-7-Chsvpdqk 0.3 g/dL (0.2-0.5) 01/15/19 14:02 Sgbs-4-Vmrwlxungboes 2.20 mg/L (< 2.52) 01/15/19 14:02 Gamma Globulins 1.0 g/dL (0.8-1.7) 01/15/19 14:02 Abnorm Protein Band 1 0.2 g/dL (NONE DETECTED) A 01/15/19 14:02 Abnorm Protein Band 2 Not Reportable 01/15/19 14:02 Abn Gamma Band 3 Serum Not Reportable 01/15/19 14:02 PEP Comment See note 01/15/19 14:02 Vitamin B12 664 pg/mL (239-931) 01/09/19 12:10 Folate 11.7 ng/mL (2.76-20.0) 01/09/19 12:10 TSH 1.74 uIU/mL (0.47-4.68) 01/09/19 12:10 IgG, Serum (MS) 928 mg/dL (694-1618) 01/15/19 14:02 IgA 160 mg/dL (81-463) 01/15/19 14:02 IgM 251 mg/dL (48-271) 01/15/19 14:02 LEV & SPEP Interp See note 01/15/19 14:02 Free [place] Light Chains 10.6 mg/L (3.3-19.4) 09/06/19 11:17 Free Lambda Light Chain 11.6 mg/L (5.7-26.3) 09/06/19 11:17 Free [place]/Lambda Ratio 0.91 (0.26-1.65) 09/06/19 11:17 - Imaging Additional studies: Procedures Administration of fthopfyizv-tmqpbdn-jjzayiwas, combined (10/04/13) Assessment and Plan (1) Hypochromic microcytic anemia Overview: Patient has a long history of chronic anemia which is characterized by hypochromic and microcystic anemia. Her CBC has normalized with IV iron in her hemoglobin hematocrit are currently normal. Her ferritin is normal as well. She will continue with oral iron. If she really is absorbing it, her anemia should not recur. If on the other hand, she is having difficulty absorbing, her ferritin should gradually drop over time and she may need further infusions later on. She did have endoscopy with no obvious source of bleeding found. She will return to clinic in about 6 months for follow-up. Assessment: Reviewed the lab tests with the patient. Patient has a normal complete blood count. Patient has normal iron panels and normal ferritin level. I think probably patient is able to absorb iron partially. I talked with her and her that I will continue current active surveillance. Plan: Continue Ferrous Sulfate 325 mg daily RTC in 6 months, CBC, CMP, Iron panel, Ferritin
[2019-09-10 15:59] LABS: Albumin 4.9 g/dL (3.8-4.8); Alpha 1 Globulin 0.3 g/dL (0.2-0.3); Alpha 2 Globulin 0.7 g/dL (0.5-0.9); Beta 1 Globulin 0.5 g/dL (0.4-0.6); Gamma Globulin 1.1 g/dL (0.8-1.7); Protein, Total 7.7 g/dL (6.1-8.1)
--- NOTE | 2020-04-10 11:19 | ONC.SCHED ---
Tried leaving a 3rd message to have this patient get a pre-author from her PCP. Had to leave a message for this to be completed as well as LABS that need to be drawn for her apt. Will cancel late this afternoon if we don't hear from here by 3:00 PM on 04/10/20 Shae
--- NOTE | 2020-04-14 10:47 | ONC.SCHED ---
Called yet again about the authorization and LABS had to leave a VM for her to call back otherwise will cancel the apt. for 04/14/20; 04/10/20 11:17 Mica Balderas: Still no authorization for this patient at time of appt. 04/10/20 09:18 Mica Balderas: left voice mail for patient, Jose alfredo has and no labs have been done, reschedule for 03/10/20? 03/06/20 13:38 Mica Garcia A:
== END ==
PROVIDERS: PCP Family Medicine; Visit Provider Internal Medicine Hematology & Oncology
DX: D50.9 Iron deficiency anemia, unspecified (principal)
CPT/HCPCS: 36415; 80053; 82232; 82607; 82728; 82746; 82784; 83010; 83540; 83550; 83615; 83735; 83883; 84155; 84165; 84443; 85025; 96365; 99204; 99214; 99215; J1756

== ENCOUNTER → 2021-03-23 10:33 | Outpatient (CLI) | payer OTHER, SELFPAY ==
[2018-11-13 16:12] VITALS: BMI 17.7
[2021-03-23 11:09] LABS: Add Manual Diff / Slide Review NO; Basophils Absolute Auto 100 /uL (0-100); Basophils Percent Auto 1.2 % (0-2); Eosinophils Absolute Auto 200 /uL (0-450); Eosinophils Percent Auto 3.8 % (2-4); Hemoglobin 13.4 g/dL (12.0-16.0); Lymphocytes Absolute Auto 1400 /uL (1100-4500); Lymphocytes Percent Auto 30.5 % (25-40); Mean Corpuscular HGB Conc 32.7 % (30-36); Mean Corpuscular Hemoglobin 28.6 PG (26-34); Mean Corpuscular Volume 87.5 fL (80-100); Monocytes Absolute Auto 400 /uL (0-900); Monocytes Percent Auto 8.3 % (3-14); Neutrophils Absolute Auto 2600 /uL (1500-7000); Neutrophils Percent Auto 56.2 % (50-75); Platelet Count 225 X10^3/uL (150-400); Red Blood Cell Count 4.69 X10^6/uL (4.0-5.2); Red Cell Distribution Width 13.1 % (11.6-14.8); White Blood Cell Count 4.7 X10^3/uL (4.5-11.0)
[2021-03-23 11:57] LABS: Alanine Aminotransferase 15 IU/L (<35); Albumin 4.7 g/dL (3.5-5.0); Albumin Globulin Ratio 1.7 (1.0-2.8); Alkaline Phosphatase 56 U/L (38-126); Aspartate Aminotransferase 31 IU/L (14-36); BUN Creatinine Ratio 10.5 (6-22); Bilirubin Total 0.4 mg/dL (0.2-1.3); Blood Urea Nitrogen 6 mg/dL (7-17); Calcium 9.1 mg/dL (8.4-10.2); Carbon Dioxide 24 mmol/L (22-32); Chloride 107 mmol/L (98-107); Cholesterol 207 mg/dL (140-199); Estimated Glomerular Filt Rate > 60.0 mL/min (>60); Globulin 2.8 g/dL (1.7-4.1); Glucose 84 mg/dL (70-100); HDL Cholesterol 95 mg/dL (40-60); HEMOLYSIS < 15 (0-50); LDL Cholesterol Calculated 86 mg/dL (<100); Potassium 3.9 mmol/L (3.4-5.1); Sodium 141 mmol/L (137-145); Total Protein 7.5 g/dL (6.3-8.2); Triglycerides 129 mg/dL (35-150)
[2021-03-23 12:04] LABS: Total Iron Binding Capacity 432 ug/dL (265-497)
[2021-03-23 12:28] LABS: Ferritin 7 ng/mL (11-264)
== END ==
PROVIDERS: PCP Registered Nurse; Referring Provider Registered Nurse; Visit Provider Registered Nurse
DX: D50.9 Iron deficiency anemia, unspecified (principal); Z82.49 Family history of ischemic heart disease and other diseases of the circulatory system
CPT/HCPCS: 36415; 80053; 80061; 82728; 83550; 85025

== ENCOUNTER → 2023-01-18 08:58 | Outpatient (CLI) | payer OTHER, SELFPAY ==
[2018-11-13 16:12] VITALS: BMI 17.7
--- NOTE | 2023-01-18 09:00 | DI.RAD.S_ITS ---
PROCEDURE: XR CHEST 2V INDICATIONS: chronic cough TECHNIQUE: 2 views of the chest were acquired. COMPARISON: [facility], CR, XR CHEST 1V, 11/13/2018, 11:11. FINDINGS: Surgical changes and devices: None. Lungs and pleura: Lungs are clear. No pleural effusions or pneumothorax. Mediastinum: Mediastinal contours are normal. Heart size is normal. Bones and chest wall: No suspicious bony abnormalities. Soft tissues appear unremarkable. IMPRESSION: No acute cardiopulmonary findings. Dictated by: Chacha Graff M.D. on 01/18/2023 at 11:26 Approved by: Chacha Graff M.D. on 01/18/2023 at 11:26
[2023-01-18 10:32] LABS: Appearance Urine UA CLEAR; Bilirubin Urine UA 1+ (NEGATIVE); Color Urine UA YELLOW; Glucose Urine UA NEGATIVE (Negative); Ketones Urine UA TRACE (NEGATIVE); Leukocyte Esterase Urine UA NEGATIVE (NEGATIVE); Nitrite Urine UA NEGATIVE (Negative); Occult Blood Urine UA NEGATIVE (Negative); Protein Urine UA NEGATIVE (Negative); Urobilinogen Urine UA 0.2 E.U./dL (0.2)
[2023-01-18 10:35] LABS: Add Manual Diff / Slide Review NO; Basophils Absolute Auto 0 /uL (0-100); Basophils Percent Auto 0.9 % (0-2); Eosinophils Absolute Auto 100 /uL (0-450); Eosinophils Percent Auto 1.8 % (2-4); Hematocrit 35.8 % (36-46); Hemoglobin 11.5 g/dL (12.0-16.0); Lymphocytes Absolute Auto 900 /uL (1100-4500); Lymphocytes Percent Auto 18.1 % (25-40); Mean Corpuscular Hemoglobin 25.3 PG (26-34); Mean Corpuscular Volume 79.2 fL (80-100); Monocytes Absolute Auto 500 /uL (0-900); Monocytes Percent Auto 9.2 % (3-14); Neutrophils Absolute Auto 3500 /uL (1500-7000); Platelet Count 289 X10^3/uL (150-400); Red Blood Cell Count 4.52 X10^6/uL (4.0-5.2); Red Cell Distribution Width 16.3 % (11.6-14.8)
[2023-01-18 10:42] LABS: pH Urine UA 5.5 (4.5-8.0)
[2023-01-18 10:43] LABS: Ictotest Urine Negative (Negative)
[2023-01-18 10:49] LABS: HEMOLYSIS < 15 (0-50); Iron 35 ug/dL (37-170)
[2023-01-18 10:59] LABS: Percent Iron Saturation 7 % (15-50); Total Iron Binding Capacity 476 ug/dL (265-497); Transferrin 345 mg/dL (206-381)
[2023-01-18 11:12] LABS: Alanine Aminotransferase 16 IU/L (<35); Albumin 4.6 g/dL (3.5-5.0); Albumin Globulin Ratio 1.8 (1.0-2.8); Alkaline Phosphatase 57 U/L (38-126); Aspartate Aminotransferase 24 IU/L (14-36); BUN Creatinine Ratio 15.5 (6-22); Bilirubin Total 0.4 mg/dL (0.2-1.3); Blood Urea Nitrogen 9 mg/dL (7-17); Calcium 9.2 mg/dL (8.4-10.2); Carbon Dioxide 27 mmol/L (22-32); Chloride 102 mmol/L (98-107); Cholesterol 185 mg/dL (140-199); Estimated Glomerular Filt Rate > 60 mL/min (>60); Globulin 2.6 g/dL (1.7-4.1); Glucose 92 mg/dL (70-100); HDL Cholesterol 76 mg/dL (40-60); HEMOLYSIS < 15 (0-50); LDL Cholesterol Calculated 80 mg/dL (<100); Potassium 3.9 mmol/L (3.4-5.1); Sodium 138 mmol/L (137-145); Total Protein 7.2 g/dL (6.3-8.2); Triglycerides 147 mg/dL (35-150)
[2023-01-18 11:19] LABS: TSH w/ Reflex to FT4 3.04 uIU/mL (0.47-4.68)
[2023-01-18 11:24] LABS: Vitamin D 25 Hydroxy (D3) < 12.8 ng/mL (30.0-100.0)
[2023-01-18 12:02] LABS: Vitamin B12 310 pg/mL (239-931)
== END ==
PROVIDERS: PCP Family Medicine; Referring Provider Family Medicine; Visit Provider Family Medicine
DX: D50.9 Iron deficiency anemia, unspecified (principal); K27.9 Peptic ulcer, site unspecified, unspecified as acute or chronic, without hemorrhage or perforation; R05.3 Chronic cough
CPT/HCPCS: 36415; 71046; 80053; 80061; 81003; 82306; 82607; 83540; 83550; 84443; 85025

== ENCOUNTER → 2023-05-03 11:50 | Outpatient (CLI) | payer OTHER, SELFPAY ==
[2023-01-18 16:18] VITALS: BMI 17.7
--- NOTE | 2023-05-03 11:51 | DI.RAD.S_ITS ---
Bone Density Report Name: CLAY CASTILLO Age: 53 Sex: Female Ethnicity: White Date of : 1970 Indication: postmenopausal; screening for osteoporosis; Referring Provider: CIRILO CURTIS Study: Bone densitometry was performed. Exam Date: May 03, 2023 Accession number: [id number] Bone Density: Region BMD T-score Z-score Classification AP Spine(L1-L4) 0.916 -1.2 -0.1 Osteopenia Femoral Neck (Left) 0.621 -2.1 -1.0 Osteopenia Total Hip (Left) 0.728 -1.8 -1.1 Osteopenia Femoral Neck (Right) 0.632 -2.0 -0.9 Osteopenia Total Hip (Right) 0.760 -1.5 -0.8 Osteopenia Total Hip Mean 0.744 -1.7 -1.0 Osteopenia World Health Organization criteria for BMD impression classify patients as: Normal (T-score at or above -1.0), Osteopenia (T-score between -1.0 and -2.5), or Osteoporosis (T-score at or below -2.5). 10-year Fracture Risk(1): Major Osteoporotic Fracture 6.9% Hip Fracture 1.6% Reported Risk Factors: [place] (), Neck BMD=0.621, BMI=18.1, smoking (1) FRAX(R) Version 3.08. Fracture probability calculated for an untreated patient. Fracture probability may be lower if the patient has received treatment. Impression: The patient has low bone mass, based on the Left Femoral Neck T-score. The patient has an estimated ten-year risk of hip fracture of 1.6% and an estimated ten-year risk of major fracture of 6.9%, based on the WHO FRAX algorithm. The patient has risk factors, including: smoking. Discussion: BONE DENSITY IS LOW AT ONE OR MORE SKELETAL SITES. This patient's lowest T-score is low at one or more skeletal sites. It meets the World Health Organization's (WHO) criteria for low bone mass (T-score between -1.0 and -2.5). The patient's 10-year risk of fracture as calculated by FRAX is less than the threshold where pharmacological therapy is recommended by the National Osteoporosis Foundation (NOF). However, all treatment decisions require clinical judgment and consideration of individual patient factors, including patient preferences, comorbidities, previous drug use, risk factors not captured in the FRAX model (e.g., frailty, falls, vitamin D deficiency, increased bone turnover, interval significant decline in bone density) and possible under or overestimation of fracture risk by FRAX. The patient should follow a healthful lifestyle (good nutrition with adequate calcium and vitamin D, and appropriate weight-bearing exercise). Follow-Up: Consider repeating this study in 2 to 3 years to reassess this patient's status, or sooner if there is some new clinical indication. Reported by: MOY LAM M.D. on 05/03/2023 12:15:00 PM.
== END ==
PROVIDERS: PCP Family Medicine; Referring Provider Family Medicine; Visit Provider Family Medicine
DX: Z78.0 Asymptomatic menopausal state (principal); Z82.62 Family history of osteoporosis; Z13.820 Encounter for screening for osteoporosis; M85.852 Other specified disorders of bone density and structure, left thigh
CPT/HCPCS: 77080

== ENCOUNTER → 2023-05-10 08:45 | Outpatient (CLI) | payer OTHER, SELFPAY ==
[2023-01-18 16:18] VITALS: BMI 17.7
[2023-05-10 10:22] LABS: Add Manual Diff / Slide Review NO; Basophils Absolute Auto 0 /uL (0-100); Basophils Percent Auto 0.7 % (0-2); Eosinophils Absolute Auto 100 /uL (0-450); Eosinophils Percent Auto 2.2 % (2-4); Hematocrit 39.2 % (36-46); Hemoglobin 13.3 g/dL (12.0-16.0); Lymphocytes Absolute Auto 1300 /uL (1100-4500); Lymphocytes Percent Auto 21.6 % (25-40); Mean Corpuscular HGB Conc 33.9 % (30-36); Mean Corpuscular Hemoglobin 28.5 PG (26-34); Monocytes Absolute Auto 500 /uL (0-900); Monocytes Percent Auto 7.8 % (3-14); Neutrophils Absolute Auto 4000 /uL (1500-7000); Neutrophils Percent Auto 67.7 % (50-75); Platelet Count 328 X10^3/uL (150-400); Red Blood Cell Count 4.66 X10^6/uL (4.0-5.2); Red Cell Distribution Width 15.5 % (11.6-14.8); White Blood Cell Count 5.9 X10^3/uL (4.5-11.0)
[2023-05-10 10:42] LABS: HEMOLYSIS < 15 (0-50); Iron 15 ug/dL (37-170)
[2023-05-10 10:54] LABS: Percent Iron Saturation 3 % (15-50); Total Iron Binding Capacity 484 ug/dL (265-497); Transferrin 385 mg/dL (206-381)
[2023-05-10 11:04] LABS: Vitamin D 25 Hydroxy (D3) 54.6 ng/mL (30.0-100.0)
[2023-05-10 11:33] LABS: Vitamin B12 292 pg/mL (239-931)
== END ==
PROVIDERS: PCP Family Medicine; Referring Provider Family Medicine; Visit Provider Family Medicine
DX: E55.9 Vitamin D deficiency, unspecified (principal); D50.9 Iron deficiency anemia, unspecified; K27.9 Peptic ulcer, site unspecified, unspecified as acute or chronic, without hemorrhage or perforation; E53.8 Deficiency of other specified B group vitamins
CPT/HCPCS: 36415; 82306; 82607; 83540; 83550; 85025

== ENCOUNTER → 2024-12-21 14:03 | Outpatient (CLI) | payer OTHER, SELFPAY ==
[2023-01-18 16:18] VITALS: BMI 17.7
[2024-12-21 15:30] LABS: Add Manual Diff / Slide Review NO; Basophils Absolute Auto 0 /uL (0-100); Basophils Percent Auto 0.6 % (0-2); Eosinophils Absolute Auto 100 /uL (0-450); Eosinophils Percent Auto 1.2 % (2-4); Hematocrit 42.3 % (36-46); Lymphocytes Absolute Auto 1400 /uL (1100-4500); Lymphocytes Percent Auto 20.7 % (25-40); Mean Corpuscular HGB Conc 33.2 % (30-36); Mean Corpuscular Hemoglobin 29.7 PG (26-34); Mean Corpuscular Volume 89.5 fL (80-100); Monocytes Absolute Auto 300 /uL (0-900); Monocytes Percent Auto 5.1 % (3-14); Neutrophils Absolute Auto 5000 /uL (1500-7000); Neutrophils Percent Auto 72.4 % (50-75); Platelet Count 397 X10^3/uL (150-400); Red Blood Cell Count 4.73 X10^6/uL (4.0-5.2); Red Cell Distribution Width 15.4 % (11.6-14.8); White Blood Cell Count 6.9 X10^3/uL (4.5-11.0)
[2024-12-21 16:27] LABS: HEMOLYSIS < 15 (0-50); Iron 45 ug/dL (37-170)
[2024-12-21 16:30] LABS: Alanine Aminotransferase 20 IU/L (<35); Albumin 5.2 g/dL (3.5-5.0); Albumin Globulin Ratio 1.9 (1.0-2.8); Alkaline Phosphatase 66 U/L (38-126); Aspartate Aminotransferase 32 IU/L (14-36); BUN Creatinine Ratio 12.1 (6-22); Bilirubin Total 0.4 mg/dL (0.2-1.3); Blood Urea Nitrogen 7 mg/dL (7-17); Calcium 9.7 mg/dL (8.4-10.2); Carbon Dioxide 25 mmol/L (22-32); Chloride 104 mmol/L (98-107); Estimated Glomerular Filt Rate > 60 mL/min (>60); Globulin 2.7 g/dL (1.7-4.1); Glucose 78 mg/dL (70-100); HEMOLYSIS < 15 (0-50); Potassium 4.4 mmol/L (3.4-5.1); Sodium 141 mmol/L (137-145); Total Protein 7.9 g/dL (6.3-8.2)
[2024-12-21 16:40] LABS: Percent Iron Saturation 11 % (15-50); Total Iron Binding Capacity 393 ug/dL (265-497); Transferrin 350 mg/dL (206-381)
[2024-12-21 17:03] LABS: Ferritin 15 ng/mL (11-264)
[2024-12-21 17:17] LABS: Vitamin B12 372 pg/mL (239-931)
== END ==
LOC: LAB 14:05
PROVIDERS: PCP Family Medicine; Referring Provider Family Medicine; Visit Provider Family Medicine
DX: J44.9 Chronic obstructive pulmonary disease, unspecified (principal); D50.9 Iron deficiency anemia, unspecified; M54.9 Dorsalgia, unspecified; G89.29 Other chronic pain
CPT/HCPCS: 36415; 80053; 82607; 82728; 83540; 83550; 85025; 85045